=== PATIENT | female | born 1940 | race Caucasian/White ===

== ENCOUNTER 2019-07-03 05:56 | Inpatient (IN) | payer MEDICARE, SELFPAY ==
[2019-07-03] VITALS (8 sets, daily range): BP systolic 112–143; BP diastolic 56–96; PULSE 65–89; RESP 16–25; TEMP 35.9–37.8; O2SAT 96–99; BMI 22.4
--- NOTE | ~2019-07-03 | XR_ITS ---
EXAMINATION: XR abdomen NG/feed tube insert DATE: 07/03/2019 09:45 INDICATION: Small bowel obstruction. Nasogastric tube insertion. TECHNIQUE: A supine view of the abdomen and lower chest was obtained for evaluation of feeding tube placement. COMPARISON: CT dated 07/03/2019 FINDINGS: Nasogastric tube tip in proximal side port in the body of the stomach. Mild discoid atelectasis at th e left lung base. Heart size is normal. Renal excreted contrast at the bilateral renal collecting sys tems as well as partially visualized right lower quadrant ileal conduit. Gas-filled viscus structure in the central abdomen most likely in the distal stomach. No other dilated loops of gas-filled bowel in the visualized abdomen. IMPRESSION: 1. Nasogastric tube in the stomach. Reviewed, dictated and finalized at location A. L SKINNER
--- NOTE | ~2019-07-03 | XR_ITS ---
EXAMINATION: XR abdomen obstructive series DATE: 07/04/2019 05:48 INDICATION: Small bowel obstruction TECHNIQUE: Upright and supine views of the abdomen were obtained. COMPARISON: 07/03/2019 FINDINGS: The nasogastric tube is in the stomach. No definitely dilated loops of bowel are seen. Ther e is no free intraperitoneal gas. A moderate volume of colonic stool is noted. Surgical changes are n oted in the pelvis. IMPRESSION: 1. Nasogastric tube in the stomach. No definite dilated bowel loops. Reviewed, dictated and finalized at location A. TING HOUSEKEEPER
--- NOTE | ~2019-07-03 | CT_ITS ---
EXAMINATION: CT abdomen pelvis w con DATE: 07/03/2019 08:10 INDICATION: Lower abdominal pain TECHNIQUE: Computed tomography (CT) of the abdomen and pelvis was performed with 100 mL Omnipaque-350 intravenous contrast. Automated exposure control and iterative reconstruction technique were employe d. The dose-length product was 325.90 mGy-cm. COMPARISON: 07/19/2015 FINDINGS: Minimal atelectasis at the bilateral lung bases. Visual is inferior heart is normal. No pericardial o r pleural effusion. Focal hepatic steatosis at the ligamentum teres. Gallbladder, spleen, pancreas, b ilateral adrenal glands and right kidney are normal. A few subcentimeter left renal cyst. Normal appe ndix. Bladder is nonvisualized in the bilateral ureters appear to extend to an ileal conduit with rig ht lower quadrant ostomy. Unchanged parastomal hernia of a short segment of small bowel at an anastom osis which likely represents the loop harvest site. Multiple dilated loops of small bowel with pseudo feces sign at the transition point which is located in the deep anterior right hemipelvis near the re gion of the entrance of the right inguinal canal where there are several surgical clips as well as a suture line with similar postoperative change seen on the left likely related to prior pelvic lymph n ode dissections. There are a few shortness of relatively decompressed bowel between the transition po int and the short segment of herniated bowel. Small amount of stool scattered throughout the normal c olon. No free intraperitoneal gas or fluid. No pathologically enlarged abdominal or pelvic lymphadeno shobha. Severe facet osteoarthritis in lower lumbar spine. Mild disc height loss and grade 1 anterolis thesis L5 on S1. 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 IMPRESSION: 1. Small bowel obstruction with transition point in the deep anterior right pelvis near the entrance to the right inguinal canal with are postoperative changes likely related to prior cystectomy and pel kelli lymph node dissections. This suggests adhesions as an etiology. 2. Right lower quadrant ostomy with ileal conduit. Parastomal hernia of short segment of small bowel at the ileal conduit harvest site. Screws distal to the site of obstruction with decompression of the small bowel proximal and distal to the herniated segment. Reviewed, dictated and finalized at location A. IC SERVICE OFFICER IMPRESSION: 1. Small bowel obstruction with transition point in the deep anterior right pel vis near the entrance to the right inguinal canal with are postoperative change s likely related to prior cystectomy and pelvic lymph node dissections. This long ggests adhesions as an etiology. 2. Right lower quadrant ostomy with ileal conduit. Parastomal hernia of short s egment of small bowel at the ileal conduit harvest site. Screws distal to the s ite of obstruction with decompression of the small bowel proximal and distal to the herniated segment.
[2019-07-03 07:09] LABS: Basophils Absolute Auto 0.1 K/mm3 (0.0-0.1); Basophils Percent Auto 0.4 % (0.2-1.2); Eosinophils Percent Auto 0.3 % (0-4.4); Hematocrit 45.4 % (37.0-47.0); Hemoglobin 14.5 g/dL (12.0-15.0); Immature Granulocyte Absolute 0.03 K/mm3 (0.00-0.031); Immature Granulocyte Percent A 0.3 % (0-0.5); Lymphocytes Absolute Auto 0.25 K/mm3 (0.9-3.2); Lymphocytes Percent Auto 2.2 % (18.3-44.2); Mean Corpuscular HGB Conc 31.9 g/dl (32-36); Mean Corpuscular Hemoglobin 30.1 pg (26-34); Mean Corpuscular Volume 94.2 fl (80-100); Mean Platelet Volume 10.8 fl (7.4-10.4); Monocytes Absolute Auto 0.5 K/mm3 (0.1-0.6); Monocytes Percent Auto 4.4 % (2.6-8.5); Neutrophils Absolute Auto 10.6 K/mm3 (1.3-6.7); Neutrophils Percent Auto 92.4 % (45.5-73.1); Platelet Count Result 212 k/mm3 (150-375); Red Blood Count 4.82 M/mm3 (4.2-5.4); Red Cell Distribution Width 12.7 % (11.5-14.5); White Blood Count 11.4 K/mm3 (4.5-10.0)
[2019-07-03 07:09] LABS: Add Urine Microscopic? YES; Appearance Urine Cloudy (Clear); Bacteria Urine Trace /hpf; Bilirubin Urine Negative (Negative); Blood Urine 1+ (Negative); Color Urine Yellow (Yellow); Glucose Urine UA Negative (Negative); Ketones Urine 1+ mg/dL (Negative); Leukocyte Esterase Ur Negative LEU/UL (Negative); Mucus Urine Heavy /lpf; Nitrate Urine Negative (Negative); Protein Urine 2+ mg/dL (Negative); Specific Grav Ur 1.016 (1.001-1.035); Urobilinogen Urine Negative mg/dL (<2.0)
[2019-07-03 07:21] LABS: Alanine Aminotransferase 17 U/L (4-35); Albumin Level 4.4 g/dL (3.5-5.1); Alkaline Phosphatase 100 U/L (38-126); Aspartate Amino Transferase 25 U/L (14-36); Bilirubin,Total 0.5 mg/dL (0.2-1.3); Blood Urea Nitrogen 25 mg/dL (7-17); Calcium 9.6 mg/dL (8.4-10.2); Carbon Dioxide 28 mmol/L (22-30); Chloride 103 mmol/L (98-107); Estimated CRCL calculation 63 ml/min; Estimated Glomerular Filt Rate > 60; Glucose 147 mg/dL (65-105); Lipase 78 U/L (23-300); Potassium 4.3 mmol/L (3.4-5.0); Sodium 138 mmol/L (137-145)
--- NOTE | 2019-07-03 07:23 | ED.ABDPAIN ---
HPI - Abdominal Pain General Chief Complaint: Abdominal Pain Stated Complaint: abd pain n/v Time Seen by Provider: 07/03/19 06:33 History of Present Illness HPI narrative: Patient is a 78-year-old female who presents ER with vomiting and abdominal discomfort. 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 Normal output. She has history of adhesions since then that cause bowel obstructions. This feels similar. Began feeling unwell about a day ago and then has had many episodes of retching vomiting. No diarrhea. Denies fever/chills/sweats. Due to vomiting patient started to get dizzy when going from sitting to standing. No alleviating factors. Pain and nausea are improved at this time. Related Data Home Medications Medication Instructions Recorded Confirmed sertraline 50 mg tablet 50 mg PO DAILY 05/25/19 Allergies Allergy/AdvReac Type Severity Reaction Status Date / Time amoxicillin Allergy Unknown Nausea and Verified 07/03/19 06:16 Vomiting levofloxacin Allergy Unknown Nausea and Verified 07/03/19 06:16 Vomiting polymyxin B Allergy Unknown Nausea and Verified 07/03/19 06:16 Vomiting Sulfa (Sulfonamide Allergy Unknown Nausea and Verified 07/03/19 06:16 Antibiotics) Vomiting trimethoprim Allergy Unknown Nausea and Verified 07/03/19 06:16 Vomiting AMOXICILLIN TRIHYDRATE Allergy Unknown NAUSEA Uncoded 07/03/19 06:16 POLYMYXIN B SULFATE Allergy Unknown Unknown Uncoded 07/03/19 06:16 POTASSIUM CLAVULANATE AdvReac Unknown NAUSEA Uncoded 07/03/19 06:16 Review of Systems Review of Systems: All systems reviewed & are unremarkable except as noted in HPI and below Constitutional: Constitutional: Denies fever(s) and Denies weakness ENT: Denies vertigo and Denies sore throat Cardiovascular: Cardiovascular: Denies chest pain Respiratory: Respiratory: Denies dyspnea and Denies wheezing Gastrointestinal: Gastrointestinal: Reports abdominal pain, Reports bloating, Denies diarrhea, Reports nausea and Reports vomiting PMFSH Past Medical History Medical History Cardiomyopathy due to hypertension, without heart failure Chronic insomnia Cyclic vomiting syndrome Depression History of basal cell carcinoma History of small bowel obstruction HLD (hyperlipidemia) With statin intolerance. Hypertension Old [place] (myocardial infarction) Parastomal hernia without obstruction or gangrene Repaired once in the past in 2007. Primary squamous cell carcinoma of urethra Diagnosed in 1999, status post radical cystoscopy with ileal conduit, chemotherapy, and radiation. She is followed by Dr. Zan Alejandro at [facility]. CT of the abdomen and pelvis done at annual visit on 06/11/2019 showed no evidence of recurrence or metastatic disease. Transitional cell carcinoma of bladder Diagnosed in 1999, status post radical cystoscopy with ileal conduit, chemotherapy, and radiation. She is followed by Dr. Zan Alejandro at [facility]. CT of the abdomen and pelvis done at annual visit on 06/11/2019 showed no evidence of recurrence or metastatic disease. Surgical History Surgical History History of hernia repair Exploratory laparotomy with extensive adhesiolysis and peristomal hernia repair in October of 2007. History of ileal conduit For squamous cell carcinoma of the urethra and noted positive transitional cell carcinoma of the bladder. Node positive with lymph node dissection during surgery. History of partial thyroidectomy 1976, benign mass. History of total cystectomy For squamous cell carcinoma of the urethra and node positive transitional cell carcinoma of the bladder in 1999. Status post surgical removal of malignant neoplasm of skin Basal cell carcinoma. Family History Family History Father Family
[2019-07-03] MEDS: SODIUM CHLORIDE 0.9% IV 1,000 ML 999 ML IV CONT (07:44)
[2019-07-03] MEDS: MORPHINE SULFATE 4 MG/ML INJ IV PUSH (08:16)
[2019-07-03] MEDS: ONDANSETRON INJ 4 MG/2 ML VIAL IV PUSH (08:16)
--- NOTE | 2019-07-03 12:33 | ADMGEN ---
This patient, Roxanne Zuniga, was admitted to [facility] Surg Room 326-01. Patient/family oriented to hospital policies and general routines including ID bracelet, bed and alarms, visiting hours, pain management, procedures, bathroom and other care routines, personal items, smoking policy, room service/diet, and visiting hours. Valuables list has been completed. Information on how to activate the Rapid Response Team has been discussed. Patient/Family are encouraged to report perceived risks to care and to ask questions if they do not understand what they are told or what they should do.
[2019-07-03] MEDS: SODIUM CHLORIDE 0.9% IV 1,000 ML 125 ML IV CONT ×2 (12:51→19:05)
--- NOTE | 2019-07-03 13:18 | PM.CNGS ---
Assessment and Plan Assessment and plan (1) Partial small bowel obstruction: Code(s): K56.600 - Partial intestinal obstruction, unspecified as to cause Status: Acute Assessment and Plan: The patient presents with evidence of a small bowel obstruction on the CT scan that appears to have a transition point at the same area that has caused her issues in the past. This area is also where she has previously had abdominal radiation and cystectomy, and is most likely a result of intraabdominal adhesions. This is a more chronic problem for the patient and has resolved with conservative measures in the past. Hopefully, this will resolve with NG tube decompression and bowel rest. The patient already seems to be significantly improving. I discussed the CT imaging with the patient and treatment plan at this point. With her extensive surgical history along with previous abdominal radiation, we will continue with conservative management and allow some time for this to resolve. I will request her records from [place] where she has been treated for her previous bladder cancer. Continue at this time with NG tube decompression, IV fluids, bowel rest, analgesics, and antiemetics. We will continue to follow with serial imaging and serial abdominal exams. Thank you for allowing me to see the patient in consultation and we will continue to follow along with you. (2) Parastomal hernia without obstruction or gangrene: Code(s): K43.5 - Parastomal hernia without obstruction or gangrene Status: Acute Assessment and Plan: The CT suggests a segment of small bowel in the parastomal hernia, but it is unclear if this is a portion of the small bowel connected to the ileal conduit or not. Does not appear to be obstructed or the cause of her current small bowel obstruction. No surgical indication at this time. (3) History of bladder cancer: Code(s): Z85.51 - Personal history of malignant neoplasm of bladder Status: Acute (4) Dehydration: Code(s): E86.0 - Dehydration Status: Acute (5) Cardiomyopathy due to hypertension, without heart failure: Code(s): I11.9 - Hypertensive heart disease without heart failure; I43 - Cardiomyopathy in diseases classified elsewhere Status: Acute (6) Hypertension: Code(s): I10 - Essential (primary) hypertension Status: Acute (7) Cyclic vomiting syndrome: Code(s): R11.15 - Cyclical vomiting syndrome unrelated to migraine Status: Acute (8) Chronic insomnia: Code(s): F51.04 - Psychophysiologic insomnia Status: Acute (9) Depression: Code(s): F32.9 - Major depressive disorder, single episode, unspecified Status: Acute (10) HLD (hyperlipidemia): Code(s): E78.5 - Hyperlipidemia, unspecified Status: Acute Additional Plan I discussed the patient's case and plan of care with Dr. Cuellar. History of Present Illness Consult details Consult date: 07/03/19 Reason for consult: other (Small-bowel obstruction) Requesting physician: Ian Valadez MD Narrative: The patient is a 78-year-old female who presented to the emergency department with complaints of abdominal pain, nausea, and vomiting. The patient has an extensive surgical history including cystectomy with ileal conduit for bladder and urethral cancer in 1999 with subsequent chemotherapy and radiation. Since that surgery, the patient has had intermittent episodes of bowel obstructions in the past and interval development of a peristomal hernia. She has been hospitalized at [facility] on multiple occasions, but also conservatively manage is what she believes or bowel obstructions at home at times. She reports having symptoms of a bowel obstruction about 12 times per year. She had an episode of a bowel obstruction and was thought to have intermittent incarceration of small bowel in her peristomal hernia on admission in 2007. She subsequentl
--- NOTE | 2019-07-03 14:09 | ECG_ITS ---
Measurements Intervals [place] Rate: 64 P: 60 [place]: 144 QRS: -27 QRSD: 89 T: 49 QT: 427 QTc: 442 Interpretive Statements SINUS RHYTHM ATRIAL PREMATURE COMPLEX BORDERLINE ST-T WAVE ABNORMALITY- DIFFUSE LEADS BASELINE WANDER- I, III, V4-V6 BORDERLINE ECG Electronically Signed On 07-03-2019 15:49:01 SKEIN WASHER by Maurice Bello D.O.
--- NOTE | 2019-07-03 17:00 | PM.IMHP ---
H&P: HPI History of Present Illness Chief complaint: Abdominal pain, nausea, and vomiting. Narrative: Roxanne Zuniga is a 78 year old female with history of urethral and bladder cancer status post radical cystectomy with ileal conduit, peristomal hernia repair with extensive adhesiolysis, and history of recurrent partial small-bowel obstructions who presented to the emergency department earlier this morning from home for evaluation of abdominal pain, nausea, and vomiting. Since the aforementioned surgeries, she has had several bowel obstructions and partial obstructions, with the last being approximately 2 months ago. She was able to treat herself through that at home, with bowel rest, antiemetics, anxiolytics, and suppositories. Yesterday afternoon she just was not feeling well, and was feeling ?queasy.? Occasionally if she has something little to eat when feeling this way, she will feel better, however she felt worse after eating chili. Not long thereafter, she developed bloating and discomfort diffusely throughout the lower abdomen that she has a difficult time describing. She then began vomiting which has persisted throughout the night. This morning, she was profoundly weak and lightheaded on standing and thus she came in for evaluation. She had 2 formed bowel movements within the last 12 hours and she was surprised to learn that CT showed evidence of obstruction. An NG tube has since been placed, and she notes improvement in her pain and bloating. Review of Systems Review of Systems: Narrative: Twelve systems were reviewed with pertinent positives and negatives as per HPI. She reports cold sweats last evening with the development of abdominal pain. She has not had a fever. She had URI symptoms last week, but improved quickly, within a day or so. She has not had chest pain or shortness of breath. No hematemesis. She denies melena and hematochezia. No change in urostomy output. Except as documented, all other systems were reviewed and are negative. [facility] Past Medical History Medical History Cardiomyopathy due to hypertension, without heart failure Chronic insomnia Cyclic vomiting syndrome Depression History of basal cell carcinoma History of small bowel obstruction HLD (hyperlipidemia) With statin intolerance. Hypertension Old [place] (myocardial infarction) Parastomal hernia without obstruction or gangrene Repaired once in the past in 2007. Primary squamous cell carcinoma of urethra Diagnosed in 1999, status post radical cystoscopy with ileal conduit, chemotherapy, and radiation. She is followed by Dr. Zan Alejandro at [facility]. CT of the abdomen and pelvis done at annual visit on 06/11/2019 showed no evidence of recurrence or metastatic disease. Transitional cell carcinoma of bladder Diagnosed in 1999, status post radical cystoscopy with ileal conduit, chemotherapy, and radiation. She is followed by Dr. Zan Alejandro at [facility]. CT of the abdomen and pelvis done at annual visit on 06/11/2019 showed no evidence of recurrence or metastatic disease. Surgical History Surgical History History of hernia repair Exploratory laparotomy with extensive adhesiolysis and peristomal hernia repair in October of 2007. History of ileal conduit For squamous cell carcinoma of the urethra and noted positive transitional cell carcinoma of the bladder. Node positive with lymph node dissection during surgery. History of partial thyroidectomy 1976, benign mass. History of total cystectomy For squamous cell carcinoma of the urethra and node positive transitional cell carcinoma of the bladder in 1999. Status post surgical removal of malignant neoplasm of skin Basal cell carcinoma. Family History Family History Father Family history of diabetes mellitus in first d
[2019-07-03] MEDS: BENZOCAINE/MENTHOL (*BKC) 18 EA LOZENGE 1 LOZENGE PO (17:03)
[2019-07-03] MEDS: LORAZEPAM INJ 2 MG/ML VIAL 0.25 MG IV PUSH (22:03)
[2019-07-04] MEDS: SODIUM CHLORIDE 0.9% IV 1,000 ML 125 ML IV CONT (03:41)
[2019-07-04 06:00] VITALS: BP 148/63; PULSE 78; RESP 16; TEMP 38.1; O2SAT 95
[2019-07-04 06:22] LABS: Hematocrit 37.4 % (37.0-47.0); Mean Corpuscular HGB Conc 32.1 g/dl (32-36); Mean Corpuscular Hemoglobin 30.5 pg (26-34); Mean Corpuscular Volume 94.9 fl (80-100); Mean Platelet Volume 10.7 fl (7.4-10.4); Platelet Count Result 162 k/mm3 (150-375); Red Blood Count 3.94 M/mm3 (4.2-5.4); Red Cell Distribution Width 12.8 % (11.5-14.5); White Blood Count 3.4 K/mm3 (4.5-10.0)
[2019-07-04 06:55] LABS: Blood Urea Nitrogen 19 mg/dL (7-17); Calcium 8.2 mg/dL (8.4-10.2); Carbon Dioxide 25 mmol/L (22-30); Chloride 112 mmol/L (98-107); Estimated CRCL calculation 75 ml/min; Estimated Glomerular Filt Rate > 60; Glucose 94 mg/dL (65-105); Potassium 3.7 mmol/L (3.4-5.0); Sodium 143 mmol/L (137-145)
[2019-07-04 07:04] VITALS: TEMP 37
[2019-07-04] MEDS: LACTATED RINGERS 1,000 ML 100 ML IV CONT ×2 (11:30→21:49)
[2019-07-04 14:00] VITALS: BP 154/69; PULSE 72; RESP 16; TEMP 36.7; O2SAT 97
[2019-07-04] MEDS: MAGNESIUM HYDROXIDE SUSP 30 ML UDC FEED TUBE (15:57)
--- NOTE | 2019-07-04 16:50 | PM.PNGS ---
Progress Note: A&P Assessment and Plan (1) SBO (small bowel obstruction): Code(s): K56.609 - Unspecified intestinal obstruction, unspecified as to partial versus complete obstruction Status: Acute Assessment and Plan: Appears to be resolving, NG removed, increase diet. Possibly home tomorrow if okay with Medicine service and patient doing well. (2) Parastomal hernia without obstruction or gangrene: Onset Date: Unknown Code(s): K43.5 - Parastomal hernia without obstruction or gangrene Status: Acute Assessment and Plan: This was not the site of the obstruction. (3) Partial small bowel obstruction: Onset Date: ~07/02/19 Code(s): K56.600 - Partial intestinal obstruction, unspecified as to cause Status: Acute (4) History of bladder cancer: Onset Date: 2007 Code(s): Z85.51 - Personal history of malignant neoplasm of bladder Status: Acute Assessment and Plan: Patient has had 1 surgery for a peristomal hernia since having her bladder resection and formation of ileal conduit. Subjective Subjective Date/Time Seen: 07/04/19 16:50 Post Op day: Post hospital day 1. Patient reports: no new complaints, feels better, flatus and bowel movement (1 solid 1 followed by several loose ones.) Interval history: Between breakfast and now the patient has had several bowel movements. Recently the nurse clamped her NG tube in gave her 1 dose of milk a magnesia. She has been tolerating ice chips and a little bit of sips of liquids when the NG is clamped. She has been getting up walking in the room. Review of Systems Constitutional: Constitutional: Reports no additional constitutional complaints ENT: Reports other (Mucous Membranes moist.) Cardiovascular: Cardiovascular: Denies dyspnea Respiratory: Respiratory: Denies pain on inspiration and Denies dyspnea Musculoskeletal: Musculoskeletal: Reports other (No calf swelling or edema) Integumentary/Breasts: Skin/Breast: Reports system reviewed and no additional complaints, except as docu Exam Narrative: Exam Narrative: HEENT mucous membranes moist NG in left nostril Lungs: Clear Abdomen: Rounded but not bloated, good bowel sounds present. Ostomy in the right lower quadrant is pink. To palpation abdomen is nontender. Extremities: No significant edema Objective Data Vital Signs Vital Signs: Vital Signs - 24 hr 07/03/19 22:00 07/04/19 06:00 07/04/19 07:04 Temperature 37.1 C 38.1 C H 37.0 C Pulse Rate 77 78 Respiratory Rate 18 16 Blood Pressure 124/56 L 148/63 H Pulse Oximetry 96 95 Intake/Output Intake/Output: Intake & Output 07/01/19 07/02/19 07/03/19 07/04/19 23:59 23:59 23:59 23:59 Intake Total 1800 2100 Output Total 300 600 Balance 1500 1500 Meds/Results Medications: Active Medications Generic Name Dose Route Start Last Admin Trade Name Freq PRN Reason Stop Dose Admin Benzocaine 1 lozenge 07/03/19 15:25 07/03/19 17:03 Chloraseptic Lozenge PO 1 lozenge PRN PRN Administration Sore Throat Lactated Ringer's 1,000 mls @ 100 mls/hr 07/04/19 08:45 07/04/19 11:30 Lr - Lactated Ringers Iv IV CONT 100 mls/hr .Q10H JOHNATHAN Administration Morphine Sulfate 4 mg 07/03/19 11:27 Morphine Sulfate Inj IV PUSH Q2H PRN Pain Rated 7-10 Ondansetron HCl 4 mg 07/03/19 14:06 Zofran Inj IV PUSH Q6H PRN Nausea And Vomiting Radiology Results: ITS Impressions Abdomen/Pelvis CT 07/03/19 08:12 IMPRESSION: 1. Small bowel obstruction with transition point in the deep anterior right pelvis near the entrance to the right inguinal canal with are postoperative changes likely related to prior cystectomy and pelvic lymph node dissections. This suggests adhesions as an etiology. 2. Right lower quadrant ostomy with ileal conduit. Parastomal hernia of short segment of small bowel at the ileal conduit harvest site. Screws distal to the
--- NOTE | 2019-07-04 16:51 | PM.IMPN ---
Progress Note: A&P Assessment and Plan (1) SBO (small bowel obstruction): Code(s): K56.609 - Unspecified intestinal obstruction, unspecified as to partial versus complete obstruction Status: Acute Assessment and Plan: -----patient's nausea vomiting has improved and she has been having multiple bowel movements. At this time the plan is to give 1 dose of milk a magnesia and clamp the NG tube. The patient had good bowel sounds and no pain to her abdomen. Will advance the diet as tolerated and I appreciate surgeries additional input. The patient had a fever today but does not seem to have any infection. UA does have 10-15 white blood cells but no nitrates or leukocyte esterase so no need for treatment at this time. Will follow urine culture until resulted. (2) Dehydration: Code(s): E86.0 - Dehydration Status: Acute Assessment and Plan: -----continue IV fluids. Patient's BUN is within normal limits today. (3) Hypertension: Code(s): I10 - Essential (primary) hypertension Status: Acute Assessment and Plan: -----blood pressure 148/63. I do not see any medications for hypertension. I will talk to the patient about that tomorrow. She may have elevated blood pressure due to bowel obstruction and may just need to follow up with her primary care physician. Will start all of her oral medications, such as her sertraline, when she tolerates a diet. Time Spent With Patient Time with patient: 25 - 35 minutes Subjective Interval history: Pt is a 78 y/o female here for small bowel obstruction. Patient states she feels great and she has had a few bowel movements. She has not had any nausea or vomiting. She says she has had over 100 small-bowel obstructions and she usually recovers very quickly. She said she did not feel bad with the fever this morning. Pt denies chills, constipation, diarrhea, chest pain, sob, or abdominal pain. Review of Systems Review of Systems: All systems reviewed & are unremarkable except as noted in HPI and below Exam Narrative: Exam Narrative: General: Well developed well nourished patient resting comfortably in bed in NAD HEENT: normocephalic. NG tube intact Neck: supple Neuro: Alert and oriented x 4 CV:RRR Resp:CTA Abd: Soft, non distended. No pain to palpation. Positive bowel sounds. Iileal conduit intact with urine in the bag Extremities: No swelling, erythema, or pain to palpation. Objective Data Vital Signs Vital Signs: Vital Signs - 24 hr 07/03/19 22:00 07/04/19 06:00 07/04/19 07:04 Temperature 98.7 F 100.6 F H 98.6 F Pulse Rate 77 78 Respiratory Rate 18 16 Blood Pressure 124/56 L 148/63 H Pulse Oximetry 96 95 Intake/Output Intake/Output: Intake & Output 07/01/19 07/02/19 07/03/19 07/04/19 23:59 23:59 23:59 23:59 Intake Total 1800 2100 Output Total 300 600 Balance 1500 1500 Meds/Results Medications: Active Medications Generic Name Dose Route Start Last Admin Trade Name Freq PRN Reason Stop Dose Admin Benzocaine 1 lozenge 07/03/19 15:25 07/03/19 17:03 Chloraseptic Lozenge PO 1 lozenge PRN PRN Administration Sore Throat Lactated Ringer's 1,000 mls @ 100 mls/hr 07/04/19 08:45 07/04/19 11:30 Lr - Lactated Ringers Iv IV CONT 100 mls/hr .Q10H JOHNATHAN Administration Morphine Sulfate 4 mg 07/03/19 11:27 Morphine Sulfate Inj IV PUSH Q2H PRN Pain Rated 7-10 Ondansetron HCl 4 mg 07/03/19 14:06 Zofran Inj IV PUSH Q6H PRN Nausea And Vomiting Radiology Results: ITS Impressions Abdomen/Pelvis CT 07/03/19 08:12 IMPRESSION: 1. Small bowel obstruction with transition point in the deep anterior right pelvis near the entrance to the right inguinal canal with are postoperative changes likely related to prior cystectomy and pelvic lymph node dissections. This suggests adhesions as an etiology. 2. Right lower quadrant ostomy with ileal conduit. Para
[2019-07-04 20:12] VITALS: PULSE 67; RESP 16; O2SAT 97
[2019-07-04 22:00] VITALS: BP 152/69; PULSE 67; RESP 16; TEMP 36.8; O2SAT 97
--- NOTE | 2019-07-05 03:41 | PC.NURSE ---
paient IV as leaking and patient refused another IV stating that she was going home tomorrow.
[2019-07-05 06:00] VITALS: BP 144/69; PULSE 79; RESP 16; TEMP 36.9; O2SAT 97
[2019-07-05 06:19] LABS: Hemoglobin 11.9 g/dL (12.0-15.0); Mean Corpuscular HGB Conc 32.2 g/dl (32-36); Mean Corpuscular Hemoglobin 30.4 pg (26-34); Mean Corpuscular Volume 94.4 fl (80-100); Mean Platelet Volume 10.8 fl (7.4-10.4); Platelet Count Result 147 k/mm3 (150-375); Red Blood Count 3.92 M/mm3 (4.2-5.4); Red Cell Distribution Width 12.4 % (11.5-14.5); White Blood Count 4.3 K/mm3 (4.5-10.0)
[2019-07-05 06:44] LABS: Blood Urea Nitrogen 13 mg/dL (7-17); Calcium 8.3 mg/dL (8.4-10.2); Carbon Dioxide 23 mmol/L (22-30); Chloride 108 mmol/L (98-107); Estimated CRCL calculation 91 ml/min; Estimated Glomerular Filt Rate > 60; Glucose 67 mg/dL (65-105); Potassium 3.5 mmol/L (3.4-5.0); Sodium 139 mmol/L (137-145)
[2019-07-05 08:00] VITALS: PULSE 79; RESP 16; O2SAT 97
--- NOTE | 2019-07-05 09:18 | PM.DS ---
DS: Diagnosis Admitting Diagnosis Admitting Diagnosis: Partial intestinal obstruction, unspecified as to cause Discharge Diagnosis (1) SBO (small bowel obstruction): Code(s): K56.609 - Unspecified intestinal obstruction, unspecified as to partial versus complete obstruction Status: Acute (2) Dehydration: Code(s): E86.0 - Dehydration Status: Acute (3) Hypertension: Code(s): I10 - Essential (primary) hypertension Status: Acute DS: Summary Hospital Course Reason for hospitalization: SBO Hospital Course: 78-year-old female with the past medical history of multiple small bowel obstructions presented emergency room for abdominal pain and inability to keep solids or fluids down. Vitals show temperature 96.7?, pulse 68, respiratory rate 25, blood pressure 143/72, pulse ox 99. White blood cell count 11.4, hemoglobin 14.5, hematocrit 45.4, platelets 212. BMP within normal limits with the exception of BUN high 25. AST and ALT within normal limits. Lipase normal. UA showed a few red blood cells and few white blood cells but the urine culture was finalized negative. In the ER showed small-bowel obstruction. Patient was admitted to the hospitalist service and conservative measures were implemented. The patient improved with the NG tube and this was able to be discontinued. The patient slowly increased her diet and did well. She did have a few readings of high blood pressures throughout her stay but she says she sees her primary care physician for this and it was likely due to pain and stress of the NG tube. The day of discharge the patient was able to tolerate a regular diet and walk the halls. She was educated about the worrisome signs and symptoms to come back to emergency room for and was discharged in stable condition. Status at Discharge Functional status at discharge: independent ambulation Overall status at discharge: patient is back to baseline Time Spent with Patient Time attestation: Total time spent providing and/or coordinating discharge services:36 min Exam Narrative: Exam Narrative: General: Well developed well nourished patient resting comfortably in bed in NAD HEENT: normocephalic. Neck: supple Neuro: Alert and oriented x 4 CV:RRR Resp:CTA Abd: Soft, non distended. No pain to palpation. Positive bowel sounds. Iileal conduit intact with urine in the bag Extremities: No swelling, erythema, or pain to palpation. DS: Data Data Completed and Pending Labs on day of discharge: Labs from last 24 hours 07/05/19 07/05/19 06:00 06:00 WBC 4.3 L RBC 3.92 L Hgb 11.9 L Hct 37.0 MCV 94.4 MCH 30.4 MCHC 32.2 RDW 12.4 Plt Count 147 L MPV 10.8 H Sodium 139 Potassium 3.5 Chloride 108 H Carbon Dioxide 23 BUN 13 D Creatinine 0.40 L Estim Creat Clear Calc 91 Estimated GFR > 60 Glucose 67 Calcium 8.3 L Discharge Plan Discharge Attending physician on discharge: Edmund Fish Consulting providers: Kit Cuellar ; Billie Fitzgerald ; Laura Norman ; Kayla Gannon ; Basil Plummer ; Maurice Bello ; Bonifacio eBnder Discharging Clinician: Kayla Gannon Anticipated Discharge Date/Time: 07/05/19 11:00 Patient Disposition: Home, Self-Care Activity: as tolerated Diet: as tolerated and regular Discharge Instructions: General Medicine Discharge Instructions: -continue to advance your diet as tolerated -follow up with your primary care physician in 1-2 weeks about this stay. Talk to them about your blood pressure to see if you need blood pressure medication outside of the hospital setting -worrisome signs and symptoms come back to emergency room for: Increasing abdominal pain, worsening nausea vomiting, shortness of breath, chest pain, progressive significant weakness, or any other worrisome symptom Patient Instructions: Antibiotic Form Stand Alone Forms: General Discharge Information Follow-up/R
--- NOTE | 2019-07-05 13:23 | PM.PNGS ---
Progress Note: A&P Assessment and Plan (1) SBO (small bowel obstruction): Code(s): K56.609 - Unspecified intestinal obstruction, unspecified as to partial versus complete obstruction Status: Acute Assessment and Plan: Appears to be resolving, NG removed yesteterday, increase diet. Home today if okay with Medicine service and patient doing well. (2) Parastomal hernia without obstruction or gangrene: Onset Date: Unknown Code(s): K43.5 - Parastomal hernia without obstruction or gangrene Status: Acute Assessment and Plan: This was not the site of the obstruction. (3) Partial small bowel obstruction: Onset Date: ~07/02/19 Code(s): K56.600 - Partial intestinal obstruction, unspecified as to cause Status: Acute (4) History of bladder cancer: Onset Date: 2007 Code(s): Z85.51 - Personal history of malignant neoplasm of bladder Status: Acute Assessment and Plan: Patient has had 1 surgery for a peristomal hernia since having her bladder resection and formation of ileal conduit. Additional Plan I discussed the plan for home going. Patient requested a CD disc which would have the images of her admission CT scan of the abdomen and pelvis on it to take with her. She will review this with her GI doctor at [place]. Subjective Subjective Date/Time Seen: 07/05/19 13:23 Review of Systems Constitutional: Constitutional: Reports as per HPI, Reports no additional constitutional complaints, Denies chills, Denies excessive sweating, Denies fever(s) and Denies headache(s) Exam Narrative: Exam Narrative: HEENT mucous membranes moist NG in left nostril Lungs: Clear Abdomen: Rounded but not bloated, good bowel sounds present. Ostomy in the right lower quadrant is pink. To palpation abdomen is nontender. Extremities: No significant edema Const: General: no acute distress and well developed Nutritional Appearance: well nourished Orientation/consciousness: oriented x3 Resp: Effort & Inspection: normal respiratory effort, able to speak in complete sentences and no respiratory distress Auscultation: clear to auscultation bilaterally GI: GI Palp: Yes soft, No tender and No guarding Auscultation: normal bowel sounds Skin: General skin exam: normal color and no rashes or lesions noted Objective Data Vital Signs Vital Signs: Vital Signs - 24 hr 07/04/19 14:00 07/04/19 20:12 07/04/19 22:00 Temperature 36.7 C 36.8 C Pulse Rate 72 67 67 Respiratory Rate 16 16 16 Blood Pressure 154/69 H 152/69 H Pulse Oximetry 97 97 97 07/05/19 06:00 07/05/19 08:00 Temperature 36.9 C Pulse Rate 79 79 Respiratory Rate 16 16 Blood Pressure 144/69 H Pulse Oximetry 97 97 Intake/Output Intake/Output: Intake & Output 07/02/19 07/03/19 07/04/19 07/05/19 23:59 23:59 23:59 23:59 Intake Total 1800 3580 1390 Output Total 300 1200 1350 Balance 1500 2380 40 Meds/Results Medications: Active Medications Generic Name Dose Route Start Last Admin Trade Name Freq PRN Reason Stop Dose Admin Benzocaine 1 lozenge 07/03/19 15:25 07/03/19 17:03 Chloraseptic Lozenge PO 1 lozenge PRN PRN Administration Sore Throat Lactated Ringer's 1,000 mls @ 100 mls/hr 07/04/19 08:45 07/05/19 03:40 Lr - Lactated Ringers Iv IV CONT Infused .Q10H JOHNATHAN Infusion Morphine Sulfate 4 mg 07/03/19 11:27 Morphine Sulfate Inj IV PUSH Q2H PRN Pain Rated 7-10 Ondansetron HCl 4 mg 07/03/19 14:06 Zofran Inj IV PUSH Q6H PRN Nausea And Vomiting Radiology Results: ITS Impressions Abdomen/Pelvis CT 07/03/19 08:12 IMPRESSION: 1. Small bowel obstruction with transition point in the deep anterior right pelvis near the entrance to the right inguinal canal with are postoperative changes likely related to prior cystectomy and pelvic lymph node dissections. This suggests adhesions as an etiology. 2. Right lower quadrant ostomy
--- NOTE | 2019-07-05 14:26 | PC.NURSE ---
[facility] NOTIFIED OF DISCHARGE CALLED [phone]
== END 2019-07-05 13:55 | disposition home or self-care (01) | DRG 389 ==
LOC: ANHED 11:29 → ANH3MEDSUR 11:37
PROVIDERS: Physician Assistant; Admitting Provider Family Medicine; Emergency Provider Emergency Medicine; PCP Family Medicine; Visit Provider Internal Medicine
DX: K56.51 Intestinal adhesions [bands], with partial obstruction (principal); I43 Cardiomyopathy in diseases classified elsewhere; E86.0 Dehydration; I10 Essential (primary) hypertension; K43.5 Parastomal hernia without obstruction or gangrene; F32.9 Major depressive disorder, single episode, unspecified; Z85.51 Personal history of malignant neoplasm of bladder; Z87.891 Personal history of nicotine dependence; Z85.828 Personal history of other malignant neoplasm of skin; I25.2 Old myocardial infarction
CPT/HCPCS: 36415; 74019; 74177; 80048; 80053; 81001; 81025; 83690; 85025; 85027; 87086; 87088; 93005; 96361; 96374; 96375; 99285; A9270; J0131; J2060; J2270; J2405; J7030; J7120; Q9967

== ENCOUNTER 2019-08-27 12:12 | Outpatient (CLI) | payer MEDICARE, SELFPAY ==
--- NOTE | ~2019-08-27 | XR_ITS ---
XR elbow RT min 3V DATE: 08/27/2019 12:52 INDICATION: Fall on July 25. Right elbow pain. TECHNIQUE: 4 views COMPARISON: None FINDINGS: No fracture or dislocation or joint effusion. No periosteal reaction or bone destruction. IMPRESSION: No fracture or dislocation or joint effusion Reviewed, dictated and finalized at location B. 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
== END 2019-08-27 12:13 | disposition home or self-care (01) ==
LOC: ANHIMG 12:21
PROVIDERS: PCP Family Medicine; Visit Provider Physician Assistant
DX: M25.521 Pain in right elbow (principal)
CPT/HCPCS: 73080

== ENCOUNTER 2020-02-01 17:12 | Emergency (ER) | payer MEDICARE, SELFPAY ==
--- NOTE | ~2020-02-01 | XR_ITS ---
EXAMINATION: XR shoulder RT min 2V DATE: 02/01/2020 18:45 INDICATION: Right shoulder injury and pain TECHNIQUE: 4 views of right shoulder were obtained. COMPARISON: None. FINDINGS: Bone alignment is normal. No fracture. There is mild osteoarthritis of glenohumeral joint a nd acromioclavicular joint. IMPRESSION: 1. Mild polyarticular osteoarthritis. Reviewed, dictated and finalized at location A.
--- NOTE | ~2020-02-01 | XR_ITS ---
EXAMINATION: XR knee RT 3V DATE: 02/01/2020 18:45 INDICATION: Right knee pain. TECHNIQUE: 3 views of right knee were obtained. COMPARISON: Right knee radiographs 07/23/2008 FINDINGS: Bone alignment is normal. No fracture. There is mild tricompartmental osteoarthritis. No kn ee joint effusion. IMPRESSION: 1. Mild right knee osteoarthritis. Reviewed, dictated and finalized at location A.
--- NOTE | ~2020-02-01 | CT_ITS ---
EXAMINATION: CT brain wo con DATE: 02/01/2020 18:16 INDICATION: Fall. Head injury. TECHNIQUE: Computed tomography (CT) of the head was performed without intravenous contrast. The mA wa s adjusted according to patient size. Iterative reconstruction technique was employed. Exam dose: 60 5.33 mGy-cm total exam DLP. COMPARISON: 12/02/2012 CT brain FINDINGS: No intracranial mass lesion or hemorrhage or cerebrovascular accident. No midline shift or mass effect. Normal ventricular size. No subdural or epidural hematoma. Bilateral vertebral artery and carotid siphon internal carotid artery calcifications. The included paranasal sinuses and mastoid air cells are normally developed and aerated. Bilateral hyperostosis frontalis interna. No skull fracture or bone destruction. IMPRESSION: Cerebral atherosclerosis No significant intracranial abnormality or significant change since 12/02/2012 Reviewed, dictated and finalized at Location A. Reviewed, dictated and finalized at location A.
--- NOTE | ~2020-02-01 | CT_ITS ---
EXAMINATION: CT facial & cervical spine wo DATE: 02/01/2020 18:16 INDICATION: Head injury. TECHNIQUE: Computed tomography (CT) of the maxillofacial region and cervical spine was performed with out intravenous contrast. Automated exposure control and iterative reconstruction technique were empl oyed. The dose-length product was 162.91 mGy-cm. COMPARISON: Head CT 12/02/2012 FINDINGS: MAXILLOFACIAL CT: There is mild mucosal thickening in the ethmoid sinuses. There are fractures of the right nasal bone and right nasal process of maxilla. There is soft tissue swelling of the nose with soft tissue gas. CERVICAL SPINE CT: There is mild scarring at the lung apices. There is a 1.2 cm nodule in left thyroid lobe, likely not clinically significant. There is 3 degrees dextrocurvature of cervical spine. There is kyphosis of ce rvical spine. Vertebral body heights are normal. There is mildly decreased disc height at C4-C5 and s everely decreased disc height at C5-C6. The following disc levels are specifically discussed: C2-C3: There is no uncovertebral joint osteoarthritis. There is mild right facet joint osteoarthritis . There is no neural foraminal stenosis. There is no central canal stenosis. C3-C4: There is mild bilateral uncovertebral joint osteoarthritis. There is mild bilateral facet join t osteoarthritis. There is no neural foraminal stenosis. There is no central canal stenosis. C4-C5: There is mild bilateral uncovertebral joint osteoarthritis. There is mild right and severe lef t facet joint osteoarthritis. There is mild left neural foraminal stenosis. There is mild central can al stenosis. C5-C6: There is severe bilateral uncovertebral joint osteoarthritis. There is mild bilateral facet kindra int osteoarthritis. There is mild bilateral neural foraminal stenosis. There is mild central canal st enosis. C6-C7: There is mild bilateral uncovertebral joint osteoarthritis. There is mild bilateral facet join t osteoarthritis. There is mild left neural foraminal stenosis. There is no central canal stenosis. C7-T1: There is no uncovertebral joint osteoarthritis. There is moderate bilateral facet joint osteoa rthritis. There is no neural foraminal stenosis. There is no central canal stenosis. IMPRESSION: 1. Fractures of the right nasal bone and right nasal process of maxilla. 2. Severe cervical spondylosis. Reviewed, dictated and finalized at location A.
[2020-02-01 17:34] VITALS: BP 157/84; PULSE 74; RESP 18; TEMP 37.1; O2SAT 95
--- NOTE | 2020-02-01 19:49 | ED.FALL ---
HPI - Fall General Chief Complaint: Fall Stated Complaint: facial trauma Time Seen by Provider: 02/01/20 17:59 Source: patient Mode of arrival: ambulatory Limitations: no limitations History of Present Illness HPI Narrative: This is a 79 year old female that presents to the ER for fall today with head injury. Reports she was walking in her garden and tripped and fell. Reports falling forward and hitting her face on the ground. Denies loss of consciousness. Reports nasal pain, right shoulder and right knee pain. Related Data Home Medications Medication Instructions Recorded Confirmed sertraline 50 mg tablet 75 mg PO DAILY tablet 11/23/19 Allergies Allergy/AdvReac Type Severity Reaction Status Date / Time amoxicillin AdvReac Unknown Nausea and Verified 02/01/20 17:49 Vomiting levofloxacin AdvReac Unknown Nausea and Verified 02/01/20 17:49 Vomiting polymyxin B AdvReac Unknown Nausea and Verified 02/01/20 17:49 Vomiting Sulfa (Sulfonamide AdvReac Unknown Nausea and Verified 02/01/20 17:49 Antibiotics) Vomiting trimethoprim AdvReac Unknown Nausea and Verified 02/01/20 17:49 Vomiting Review of Systems Review of Systems: Narrative: CONSTITUTIONAL: Denies fever ENT: Reports nasal pain. Denies vision changes CARDIOVASCULAR: Denies chest pain RESPIRATORY: Denies dyspnea. GASTROINTESTINAL: Denies vomiting MUSCULOSKELETAL: Reports joint pain, and myalgia. NEUROLOGIC: Denies headache, numbness, or weakness. All systems reviewed & are unremarkable except as noted in HPI and below PMFSH Past Medical History Medical History (Updated 02/01/20 @ 20:23 by Roz Vásquez PA-C) Anxiety Cardiomyopathy due to hypertension, without heart failure Chronic insomnia Cyclic vomiting syndrome Depression Dizziness History of basal cell carcinoma History of small bowel obstruction HLD (hyperlipidemia) With statin intolerance. Hypertension Old MD (myocardial infarction) Parastomal hernia without obstruction or gangrene (Unknown) Repaired once in the past in 2007. Primary squamous cell carcinoma of urethra Diagnosed in 1999, status post radical cystoscopy with ileal conduit, chemotherapy, and radiation. She is followed by Dr. Zan Alejandro at [facility]. CT of the abdomen and pelvis done at annual visit on 06/11/2019 showed no evidence of recurrence or metastatic disease. Transitional cell carcinoma of bladder Diagnosed in 1999, status post radical cystoscopy with ileal conduit, chemotherapy, and radiation. She is followed by Dr. Zan Alejandro at [facility]. CT of the abdomen and pelvis done at annual visit on 06/11/2019 showed no evidence of recurrence or metastatic disease. Surgical History Surgical History (Updated 08/05/19 @ 10:25 by Maryjane Leonard PA-C) H/O exploratory laparotomy Approximately 2007 with adhesiolysis and shona stomal hernia repair History of hernia repair Exploratory laparotomy with extensive adhesiolysis and peristomal hernia repair in October of 2007. History of ileal conduit For squamous cell carcinoma of the urethra and noted positive transitional cell carcinoma of the bladder. Node positive with lymph node dissection during surgery. History of partial thyroidectomy 1976, benign mass. History of total cystectomy For squamous cell carcinoma of the urethra and node positive transitional cell carcinoma of the bladder in 1999. Status post surgical removal of malignant neoplasm of skin Basal cell carcinoma. Social History Social History (Updated 07/26/19 @ 14:54 by Leela Love NP) Social History: The patient lives in [place], [place]. She designates her as her surrogate decision maker and she wishes to be a full code. She is a former smoker and quit in 1998 or 1999. Recovering alcoholic, she has abstained since the . No drug abuse. Her primary care provider is Dr. Clarence Whitley. Smoking status: Former smoker Tobacco type: cigarettes S
[2020-02-01] MEDS: ACETAMINOPHEN 500 MG TABLET 1000 MG PO (19:59)
[2020-02-01] MEDS: TETANUS,DIPHTHERIA,AC PERTUSSIS ADULT (0.5 ML) BOOSTRIX IM (19:59)
[2020-02-01 20:36] VITALS: BP 154/79; PULSE 61; RESP 16; TEMP 36.4; O2SAT 96
== END 2020-02-01 20:37 | disposition home or self-care (01) ==
PROVIDERS: Emergency Provider Emergency Medicine; PCP Family Medicine
DX: S01.21XA Laceration without foreign body of nose, initial encounter (principal); Z23 Encounter for immunization; F41.9 Anxiety disorder, unspecified; F32.9 Major depressive disorder, single episode, unspecified; I11.9 Hypertensive heart disease without heart failure; I43 Cardiomyopathy in diseases classified elsewhere; Z85.828 Personal history of other malignant neoplasm of skin; I25.2 Old myocardial infarction; Z85.51 Personal history of malignant neoplasm of bladder; Z85.59 Personal history of malignant neoplasm of other urinary tract organ; W01.0XXA Fall on same level from slipping, tripping and stumbling without subsequent striking against object, initial encounter
CPT/HCPCS: 12001; 12011; 70450; 70486; 72125; 73030; 73562; 90471; 90715; 99284; A9270

== ENCOUNTER 2020-05-05 12:51 | Outpatient (CLI) | payer MEDICARE, SELFPAY ==
--- NOTE | ~2020-05-05 | MR_ITS ---
EXAMINATION: MR knee RT wo con DATE: 05/05/2020 13:42 INDICATION: Right knee pain TECHNIQUE: Magnetic resonance imaging (MRI) of the right knee was performed without intravenous contr ast. Sequences included coronal PD-weighted FSE, coronal PD-weighted FS FSE, sagittal T2-weighted FS E, sagittal PD-weighted FS FSE and axial PD weighted fat saturated FSE. COMPARISON: None. FINDINGS: Medial compartment: Complex tear at the medial meniscal body with longitudinal oblique tear plane extending to the inferi or articular surface at the posterior horn. Partial-thickness cartilage loss with smooth chondral kenn face at the medial tibial plateau and anterior to central weightbearing medial femoral condyle. Deepe r chondral fissuring with tiny central subchondral osteophyte and mild subarticular edema at the post erior weightbearing medial femoral condyle. Lateral compartment: Partial-thickness cartilage loss along the central to posterior weightbearing lateral femoral condyle with smooth appearing chondral surface. There are however tiny central osteophytes along the lateral side of the central weightbearing lateral femoral condyle suggesting overlying high-grade chondromal acia. Patellofemoral compartment: Deep chondral ulceration and fissuring at the patellar apical ridge where there is minimal cortical i rregularity and along the immediately adjacent medial and lateral patellar facets without degenerativ e subchondral changes. Trochlear cartilage is normal. Ligaments and tendons: Anterior and posterior cruciate ligaments are normal. The medial collateral ligament and fibular elliot ateral ligament complex are normal. Mild tendinopathy/enthesopathy with moderate sized enthesophytes at the distal quadriceps tendon. Patellar tendon is normal. The visualized medial and lateral hamstri ng tendons as well as the iliotibial band are normal. Fluid: Physiologic amount of fluid in the joint space. No loose osteochondral bodies identified. Prepatellar edema without discrete bursal fluid collection. Osseous/other: Bone alignment is normal. No fracture or pathologic marrow replacing process. Prominent subcutaneous varicosities at the posterolateral aspect of the knee. IMPRESSION: 1. Medial meniscal tear. 2. Mild tricompartmental osteoarthritis with small regions of moderate to high-grade chondromalacia i n all 3 compartments. 3. Mild distal quadriceps enthesopathy. Reviewed, dictated and finalized at location B. IMPRESSION: 1. Medial meniscal tear. 2. Mild tricompartmental osteoarthritis with small regions of moderate to high- grade chondromalacia in all 3 compartments. 3. Mild distal quadriceps enthesopathy.
== END 2020-05-05 12:52 | disposition home or self-care (01) ==
LOC: ANHIMG 12:58
PROVIDERS: PCP Family Medicine; Visit Provider Chiropractor Rehabilitation
DX: M17.11 Unilateral primary osteoarthritis, right knee (principal)
CPT/HCPCS: 73721

== ENCOUNTER 2020-05-18 10:40 | Outpatient (CLI) | payer MEDICARE, SELFPAY ==
[2020-05-18 11:19] LABS: Add Urine Microscopic? YES; Amorphous Sediment Urine Moderate; Appearance Urine Turbid (Clear); Bacteria Urine 1+ /hpf; Bilirubin Urine Negative (Negative); Blood Urine 1+ (Negative); Color Urine Amber (Yellow); Glucose Urine UA Negative (Negative); Ketones Urine Negative (Negative); Leukocyte Esterase Ur Negative LEU/UL (NEGATIVE); Mucus Urine Heavy /lpf; Nitrate Urine Positive (Negative); Protein Urine 2+ mg/dL (Negative); Specific Grav Ur 1.014 (1.001-1.035); Squamous Epithelial Cell Urine Rare /hpf (Few); Urobilinogen Urine Negative mg/dL (<2.0)
== END 2020-05-18 10:41 | disposition home or self-care (01) ==
LOC: ANHLAB 10:42
PROVIDERS: PCP Family Medicine; Visit Provider Nurse Practitioner Family
DX: N39.0 Urinary tract infection, site not specified (principal)
CPT/HCPCS: 81001; 87086; 87088

== ENCOUNTER 2020-07-19 08:18 | Outpatient (NON) | payer MEDICARE, SELFPAY ==
[2020-07-19 23:03] LABS: SARS-CoV-2 RNA PCR Negative
== END 2020-07-19 08:19 ==
LOC: ANHCOVIDDT 08:19
PROVIDERS: PCP Family Medicine; Visit Provider Family Medicine
DX: R68.89 Other general symptoms and signs (principal); Z20.828 Contact with and (suspected) exposure to other viral communicable diseases
CPT/HCPCS: 87635; C9803; U0003

== ENCOUNTER 2021-01-10 13:39 | Emergency (ER) | payer MEDICARE, SELFPAY ==
--- NOTE | ~2021-01-10 | XR_ITS ---
XR wrist RT min 3V 01/10/2021 14:00 INDICATION: Right wrist pain after fall PROCEDURE: 4 views right wrist COMPARISON: No prior studies for comparison. FINDINGS: Fracture, dislocation or subluxation is not identified. There are mild degenerative changes of the triscaphe and first MCP joints. The soft tissues appear within normal limits. No foreign bod ies are identified. IMPRESSION: 1: NO ACUTE BONE OR JOINT ABNORMALITY IDENTIFIED. Reviewed, dictated and finalized at location B.
--- NOTE | 2021-01-10 13:47 | ED.UPPEXIN ---
HPI - Extremity Injury (Upper) General Chief Complaint: Extremity Injury, Upper Stated Complaint: wrist injury Time Seen by Provider: 01/10/21 13:47 Source: patient and RN notes reviewed History of Present Illness HPI narrative: Patient is a 80-year-old female who presents the urgent care with complaints of a right wrist injury after falling backwards and catching herself over in an open pull out operator. Patient states that happened approximately 20 minutes prior to arrival and she did not do anything for her pain prior to arrival. Patient denies hitting her head or any loss of consciousness. Denies of any other acute injuries from the fall. No acute distress noted. Patient and spouse aware of the plan of care. Some parts of this dictation were generated by voice recognition software and may contain typographical and/or grammatical inaccuracies. Related Data Home Medications Medication Instructions Recorded Confirmed sertraline 50 mg tablet 75 mg PO DAILY tablet 11/23/19 12/02/20 Allergies Allergy/AdvReac Type Severity Reaction Status Date / Time amoxicillin [From Augmentin] Allergy Vomiting Verified 12/02/20 14:31 clavulanic acid Allergy Vomiting Verified 12/02/20 14:31 [From Augmentin] levofloxacin AdvReac Unknown Nausea and Verified 12/02/20 14:31 Vomiting polymyxin B AdvReac Unknown Nausea and Verified 12/02/20 14:31 Vomiting Sulfa (Sulfonamide AdvReac Unknown Nausea and Verified 12/02/20 14:31 Antibiotics) Vomiting trimethoprim AdvReac Unknown Nausea and Verified 12/02/20 14:31 Vomiting Review of Systems Review of Systems: Narrative: CONSTITUTIONAL: Denies fever, chills, or sweats. EYES: Denies visual changes, redness, or discharge. ENT: Denies rhinorrhea, congestion, sore throat, or otalgia. CARDIOVASCULAR: Denies chest pain, palpitations, or edema. RESPIRATORY: Denies cough or dyspnea. GASTROINTESTINAL: Denies abdominal pain, nausea, vomiting, or diarrhea. GENITOURINARY: Denies dysuria or hematuria. SKIN: Denies rash or itching. MUSCULOSKELETAL: Reports of right wrist pain due to fall NEUROLOGIC: Denies headache, numbness, or weakness. All other systems reviewed are negative, except as documented in HPI. PMFSH Past Medical History Medical History Anxiety Cardiomyopathy due to hypertension, without heart failure Chronic insomnia Cyclic vomiting syndrome Depression Dizziness History of basal cell carcinoma History of small bowel obstruction HLD (hyperlipidemia) With statin intolerance. Hypertension [place] (myocardial infarction) Parastomal hernia without obstruction or gangrene (Unknown) Repaired once in the past in 2007. Primary squamous cell carcinoma of urethra Diagnosed in 1999, status post radical cystoscopy with ileal conduit, chemotherapy, and radiation. She is followed by Dr. Zan Alejandro at [facility]. CT of the abdomen and pelvis done at annual visit on 06/11/2019 showed no evidence of recurrence or metastatic disease. Transitional cell carcinoma of bladder Diagnosed in 1999, status post radical cystoscopy with ileal conduit, chemotherapy, and radiation. She is followed by Dr. Zan Alejandro at [facility]. CT of the abdomen and pelvis done at annual visit on 06/11/2019 showed no evidence of recurrence or metastatic disease. Surgical History Surgical History H/O exploratory laparotomy Approximately 2007 with adhesiolysis and shona stomal hernia repair History of hernia repair Exploratory laparotomy with extensive adhesiolysis and peristomal hernia repair in October of 2007. History of ileal conduit For squamous cell carcinoma of the urethra and noted positive transitional cell carcinoma of the bladder. Node positive with lymph node dissection during surgery. History of partial thyroidectomy 1976, benign mass. History of total cystectomy For squamous
[2021-01-10 13:51] VITALS: BP 99/50; PULSE 67; RESP 18; TEMP 36.3; O2SAT 98
== END 2021-01-10 14:16 | disposition home or self-care (01) ==
PROVIDERS: Emergency Provider Nurse Practitioner Family; PCP Family Medicine
DX: S63.501A Unspecified sprain of right wrist, initial encounter (principal); S66.911A Strain of unspecified muscle, fascia and tendon at wrist and hand level, right hand, initial encounter; W19.XXXA Unspecified fall, initial encounter; Z87.891 Personal history of nicotine dependence; F41.9 Anxiety disorder, unspecified; I11.0 Hypertensive heart disease with heart failure; I50.9 Heart failure, unspecified; F51.04 Psychophysiologic insomnia; F32.9 Major depressive disorder, single episode, unspecified; Z85.828 Personal history of other malignant neoplasm of skin; Z85.51 Personal history of malignant neoplasm of bladder; E78.5 Hyperlipidemia, unspecified; I25.2 Old myocardial infarction
CPT/HCPCS: 73110; 99213; G0463

== ENCOUNTER 2021-02-23 03:53 | Inpatient (IN) | payer MEDICARE, SELFPAY ==
[2021-02-23] VITALS (12 sets, daily range): BP systolic 104–144; BP diastolic 49–82; PULSE 66–115; RESP 14–31; TEMP 36.2–36.6; O2SAT 95–100; BMI 22.5
--- NOTE | ~2021-02-23 | XR_ITS ---
EXAMINATION: XR abdomen/kub 1V INDICATION: Small bowel obstruction TECHNIQUE: Supine views of the abdomen were obtained on 2 radiographs. COMPARISON: 02/23/2021 FINDINGS: The nasogastric tube is in the stomach. There are a few mildly dilated small bowel loops in the right abdomen with apparent slight improvement. A moderate volume of colonic stool is present. S urgical clips are present in the pelvis. The visualized lung bases are clear. IMPRESSION: 1. Dilated small bowel with possible slight improvement. Reviewed, dictated and finalized at location A.
--- NOTE | ~2021-02-23 | CT_ITS ---
EXAMINATION: CT abdomen pelvis w con DATE: 02/23/2021 05:22 INDICATION: Abdominal pain. TECHNIQUE: Computed tomography (CT) of the abdomen and pelvis was performed with 100 mL Omnipaque-350 intravenous contrast. Automated exposure control and iterative reconstruction technique were employe d. The dose-length product was 311.93 mGy-cm. COMPARISON: 07/26/2019 FINDINGS: Mild left basilar atelectasis and minimal dependent atelectasis in the right lower lobe. Visualized i nferior heart is normal. No pericardial or pleural effusion. Small sliding-type hiatal hernia. Liver, gallbladder, spleen, pancreas, bilateral adrenal glands and right kidney are normal. A few subcentim eter cysts in the left kidney the largest measuring 6 mm . There is mild bilateral hydronephrosis lik jaun related to a prior ileal conduit which extends to an ostomy in the right lower quadrant. Incident ally noted is partially distended. Left renal collecting system. There is a parastomal hernia near th e terminal ileum of a short segment of small bowel at an anastomosis likely representing the site of the ileal loop donor site. The bowel on either side of the herniation is decompressed. There is howev er a transition point a short distance more proximally along the distal ileum near the right internal inguinal ring where the bowel and undergoes a sharp angulation at the transition point with pseudofe bhavin sign immediately more proximal small bowel which is dilated to 4.5 cm. Multiple loops of mildly d ilated fluid-filled small bowel extend more proximally to the jejunum. There is relatively uniform mu cosal enhancement throughout the small bowel with no evident wall thickening. The colon and appendix are normal. Postoperative change of prior cystectomy with multiple surgical clips in the pelvis on th e left or right consistent with associated pelvic lymph node dissection. Uterus and bilateral adnexa are unremarkable. No free intraperitoneal gas or fluid. No pathologically enlarged abdominal or pelvi c lymphadenopathy. Severe bilateral facet osteoarthritis at L4-L5 with 6 mm anterolisthesis L4 on L5. Prominent Tarlov cysts with remodeling and expansion of a few of the neural foramina at the sacrum. IMPRESSION: 1. Small bowel obstruction likely due to an adhesion in the anteroinferior right pelvis. 2. Postoperative change of prior cystectomy with right lower quadrant ileal conduit and mild bilatera l hydronephrosis. 3. Parastomal herniation alongside the ileal conduit of a short segment of ileum. Unable to assess wh ether this would potentially be obstructing as this lies distal to the point of the current obstructi on with decompressed small bowel both proximal and distal to the herniated segment. This finding dave g with the current site of the obstruction appear identical to CT performed on 07/26/2019. Reviewed, dictated and finalized at location A. IMPRESSION: 1. Small bowel obstruction likely due to an adhesion in the anteroinferior righ t pelvis. 2. Postoperative change of prior cystectomy with right lower quadrant ileal con duit and mild bilateral hydronephrosis. 3. Parastomal herniation alongside the ileal conduit of a short segment of ileu m. Unable to assess whether this would potentially be obstructing as this lies distal to the point of the current obstruction with decompressed small bowel alisha th proximal and distal to the herniated segment. This finding along with the cu rrent site of the obstruction appear identical to CT performed on 07/26/2019.
--- NOTE | ~2021-02-23 | XR_ITS ---
EXAMINATION: XR UGI water soluble w sbs DATE: 02/24/2021 12:18 INDICATION: Small bowel obstruction TECHNIQUE: Water-soluble contrast was injected through the patient's existing nasogastric tube. Fluor oscopic spot radiographs of the stomach, and proximal small bowel were obtained. Additional overhead radiographs were obtained during the transit through the small bowel. Spot fluoroscopic images of th e small bowel were obtained upon contrast reaching the cecum. Fluoroscopy exposure time was 1.1 minut es. A total of 9 fluoroscopic images and 5 overhead radiographs were obtained. COMPARISON: None. FINDINGS: Cartilage demonstrates the nasogastric tube tip in proximal side port in the body of the stomach. The stomach and proximal small bowel are normal. There is no hiatal hernia. No gastroesophageal reflux w as observed. There was relatively brisk peristalsis with contrast passing from the stomach to proxima l colon in approximately 15 minutes. There is normal caliber and mucosal fold pattern throughout the small bowel. Terminal ileum is normal. Postoperative changes with multiple surgical clips in the pel vis consistent with prior cystectomy and pelvic lymph node dissection. There is also an anastomotic s uture line projecting over the right lower quadrant ostomy for an ileal conduit. IMPRESSION: 1. Resolution of prior small bowel obstruction with no residual dilated loops of bowel and with rapid passage of contrast from the stomach to the colon within 15 minutes. Reviewed, dictated and finalized at location A. IMPRESSION: 1. Resolution of prior small bowel obstruction with no residual dilated loops o f bowel and with rapid passage of contrast from the stomach to the colon within 15 minutes.
--- NOTE | ~2021-02-23 | XR_ITS ---
EXAMINATION: XR abdomen NG/feed tube insert DATE: 02/23/2021 07:48 INDICATION: Nasogastric tube placement TECHNIQUE: A supine view of the abdomen and lower chest was obtained for evaluation of feeding tube placement. COMPARISON: CT dated 02/23/2021 FINDINGS: Nasogastric tube tip in the body of the stomach with proximal side-port at the level of the gastroeso phageal junction. Excreted contrast from prior CT is seen within the bilateral renal collecting syste ms. There is a mild left hydroureteronephrosis with duplicated left renal collecting system with a pa ir of ureters which extend towards the right with additional contrast opacified urine seen within a r ight lower quadrant ileal conduit. Dilated loop of gas-filled bowel is seen in the left lower quadran t consistent with previously noted small bowel obstruction. Visualized portions of the lung bases are clear. Heart size is normal. IMPRESSION: 1. Nasal gastric tube tip in the body of the stomach. Consider advancement by [address] the proximal side-port below the level of the gastroesophageal junction. 2. Small bowel obstruction. 3. Ileal conduit with mild hydroureteronephrosis of a duplicate left renal collecting system and uret ers. Reviewed, dictated and finalized at location A. IMPRESSION: 1. Nasal gastric tube tip in the body of the stomach. Consider advancement by [address] the proximal side-port below the level of the gastroesophageal juncti on. 2. Small bowel obstruction. 3. Ileal conduit with mild hydroureteronephrosis of a duplicate left renal elliot ecting system and ureters.
--- NOTE | 2021-02-23 04:04 | ECG_ITS ---
Measurements Intervals [place] Rate: 71 P: 83 UT: 158 QRS: -2 QRSD: 90 T: 68 QT: 481 QTc: 526 Interpretive Statements SINUS RHYTHM PROLONGED QT INTERVAL BASELINE ARTIFACT- II, III, AVR, AVL, AVF ABNORMAL ECG Electronically Signed On 02-23-2021 5:57:34 CDT by Maurice Bello D.O.
--- NOTE | 2021-02-23 04:11 | PC.NURSE ---
ATIVAN PULLED UNDER WRONG PATIENT. NOT GIVEN TO THIS PATIENT. RETURNED TO [facility] DRAWER.
--- NOTE | 2021-02-23 04:18 | ED.GENADULT ---
HPI - General Adult General Chief complaint: Nausea/Vomiting/Diarrhea Stated complaint: VOMITING Time Seen by Provider: 02/23/21 04:03 History of Present Illness HPI narrative: Patient 80-year-old female presents to emergency department chief complaint of abdominal pain nausea vomiting. 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 Patient reports that she started having abdominal discomfort nausea and vomiting and reports that she has not really had good bowel movements since that patient does report she is pacing subtest reports this feels similar to when she had obstructions before in the past and reports that usually are able to return to normal function with conservative management. Related Data Home Medications Medication Instructions Recorded Confirmed sertraline 50 mg tablet 75 mg PO DAILY tablet 11/23/19 01/10/21 Allergies Allergy/AdvReac Type Severity Reaction Status Date / Time amoxicillin [From Augmentin] Allergy Vomiting Verified 02/23/21 04:10 clavulanic acid Allergy Vomiting Verified 02/23/21 04:10 [From Augmentin] levofloxacin AdvReac Unknown Nausea and Verified 02/23/21 04:10 Vomiting polymyxin B AdvReac Unknown Nausea and Verified 02/23/21 04:10 Vomiting Sulfa (Sulfonamide AdvReac Unknown Nausea and Verified 02/23/21 04:10 Antibiotics) Vomiting trimethoprim AdvReac Unknown Nausea and Verified 02/23/21 04:10 Vomiting Review of Systems Review of Systems: A 10 system review of systems was completed on the patient and is negative except for what is stated in the HPI. Nursing and ancillary documentation was reviewed. [facility] Past Medical History Medical History Anxiety Cardiomyopathy due to hypertension, without heart failure Chronic insomnia Cyclic vomiting syndrome Depression Dizziness History of basal cell carcinoma History of small bowel obstruction HLD (hyperlipidemia) With statin intolerance. Hypertension [place] (myocardial infarction) Parastomal hernia without obstruction or gangrene (Unknown) Repaired once in the past in 2007. Primary squamous cell carcinoma of urethra Diagnosed in 1999, status post radical cystoscopy with ileal conduit, chemotherapy, and radiation. She is followed by Dr. Zan Alejandro at [facility]. CT of the abdomen and pelvis done at annual visit on 06/11/2019 showed no evidence of recurrence or metastatic disease. Transitional cell carcinoma of bladder Diagnosed in 1999, status post radical cystoscopy with ileal conduit, chemotherapy, and radiation. She is followed by Dr. Zan Alejandro at [facility]. CT of the abdomen and pelvis done at annual visit on 06/11/2019 showed no evidence of recurrence or metastatic disease. Surgical History Surgical History H/O exploratory laparotomy Approximately 2007 with adhesiolysis and shona stomal hernia repair History of hernia repair Exploratory laparotomy with extensive adhesiolysis and peristomal hernia repair in October of 2007. History of ileal conduit For squamous cell carcinoma of the urethra and noted positive transitional cell carcinoma of the bladder. Node positive with lymph node dissection during surgery. History of partial thyroidectomy 1976, benign mass. History of total cystectomy For squamous cell carcinoma of the urethra and node positive transitional cell carcinoma of the bladder in 1999. Status post surgical removal of malignant neoplasm of skin Basal cell carcinoma. Family History Family History Father Family history of diabetes mellitus in first degree relative Family history of coronary artery disease Mother Family history of coronary artery disease Cerebrovascular accident Sibling No problems noted.
[2021-02-23] MEDS: PROCHLORPERAZINE EDISYLATE 10 MG/2 ML VIAL IV PUSH (04:29)
[2021-02-23] MEDS: SODIUM CHLORIDE 0.9% IV 1,000 ML 999 ML IV CONT (04:29)
[2021-02-23] MEDS: MORPHINE SULFATE (*CRX) 4 MG/ML INJ IV PUSH (04:31)
[2021-02-23 04:43] LABS: Basophils Percent Auto 0.4 % (0.2-1.2); Eosinophils Percent Auto 0.1 % (0-4.4); Hematocrit 43.2 % (37.0-47.0); Hemoglobin 14.7 g/dL (12.0-15.0); Immature Granulocyte Absolute 0.03 K/mm3 (0.00-0.031); Immature Granulocyte Percent A 0.3 % (0-0.5); Lymphocytes Absolute Auto 0.33 K/mm3 (0.9-3.2); Lymphocytes Percent Auto 3.3 % (18.3-44.2); Mean Corpuscular Hemoglobin 30.4 pg (26-34); Mean Corpuscular Volume 89.4 fl (80-100); Monocytes Absolute Auto 0.4 K/mm3 (0.1-0.6); Monocytes Percent Auto 3.5 % (2.6-8.5); Neutrophils Absolute Auto 9.4 K/mm3 (1.3-6.7); Neutrophils Percent Auto 92.4 % (45.5-73.1); Platelet Count Result 196 k/mm3 (150-375); Red Blood Count 4.83 M/mm3 (4.2-5.4); Red Cell Distribution Width 13.2 % (11.5-14.5); White Blood Count 10.1 K/mm3 (4.5-10.0)
[2021-02-23 04:56] LABS: Alanine Aminotransferase 17 U/L (4-35); Albumin Level 4.3 g/dL (3.5-5.1); Alkaline Phosphatase 150 U/L (38-126); Anion Gap 9 mmol/L (8-16); Aspartate Amino Transferase 27 U/L (14-36); Bilirubin,Total 0.7 mg/dL (0.2-1.3); Blood Urea Nitrogen 21 mg/dL (7-17); Calcium 9.8 mg/dL (8.4-10.2); Carbon Dioxide 23 mmol/L (22-30); Chloride 105 mmol/L (98-107); Estimated Glomerular Filt Rate > 60; Glucose 151 mg/dL (65-110); Lipase 84 U/L (23-300); Magnesium 1.9 mg/dL (1.6-2.3); Potassium 3.8 mmol/L (3.4-5.0); Sodium 137 mmol/L (137-145)
--- NOTE | 2021-02-23 05:07 | PC.NURSE ---
Pt to CT via stretcher at this time.
[2021-02-23 05:10] LABS: Troponin I 0.058 ng/mL (0.000-0.034)
--- NOTE | 2021-02-23 05:17 | PC.NURSE ---
Urine sample and blood specimens sent to lab at same time, in proper tubes, at 0425. This RN called lab to follow up on urine not being received or resulted. Spoke to [place] and was informed that urine was never received and new specimen must be sent. maintenance millwright and EDP notified.
--- NOTE | 2021-02-23 05:21 | PC.NURSE ---
Lab called to inform us that it has the urine
[2021-02-23 05:29] LABS: Add Urine Microscopic? YES; Appearance Urine Cloudy (Clear); Bacteria Urine Trace /hpf; Bilirubin Urine Negative (Negative); Blood Urine 1+ (Negative); Color Urine Yellow (Yellow); Glucose Urine UA Negative (Negative); Ketones Urine Trace mg/dL (Negative); Leukocyte Esterase Ur Negative LEU/UL (Negative); Mucus Urine Rare /lpf; Nitrate Urine Positive (Negative); Protein Urine Negative (Negative); Specific Grav Ur 1.011 (1.001-1.035); Urobilinogen Urine Negative mg/dL (<2.0)
--- NOTE | 2021-02-23 07:24 | PC.NURSE ---
bedside report from domitila ruby. care assumed at this time.
[2021-02-23] MEDS: ONDANSETRON INJ 4 MG/2 ML VIAL IV PUSH (07:38)
--- NOTE | 2021-02-23 10:30 | PM.IMHP ---
H&P: HPI History of Present Illness Date/Time: 02/23/21 10:30 Chief Complaint: Abdominal pain and vomiting Narrative: This is a 80-year-old female who presented to the emergency department with abdominal pain and nausea and vomiting. She has a known history of multiple prior partial small-bowel obstructions. She has a history of primary squamous cell carcinoma of urethra and node positive transitional cell carcinoma of the bladder in 1999. She underwent cystectomy with ileal conduit about 20 years ago. She had a bowel obstruction in 2007 that required exploratory laparotomy and adhesiolysis, and she also had a parastomal hernia repaired at that time as well. She has had multiple bowel obstructions since then that have resolved with conservative measures. The last hospitalization was in July of 2019, when she was treated successfully with conservative measures. She experiences obstructive-type symptoms at home every couple of months, that typically resolve with bowel rest and time. She reports that her current symptoms started last night around 8:00 pm with generalized abdominal pain. This pain continued to worsen through the night, and she developed nausea and had multiple episodes of vomiting. The pain became unbearable, therefore she presented to the ER overnight for evaluation. CT scan of the abdomen and pelvis suggests a small bowel obstruction with a transition point in a similar position as seen on the CT scan in July of 2019. NG has been placed and was also reportedly advanced after initial abdominal x-ray in the ER. She has been started on IV fluids and was given a dose of Morphine in the ER. The patient is now slightly drowsy after receiving the Morphine, but easily arousable and answering questions appropriately. She reports her abdominal pain and bloating has improved. She is not currently having any abdominal pain, but reports it comes and goes. Still having some nausea. Denies flatus, and has not had a bowel movement since yesterday. Review of Systems Review of Systems: All systems reviewed & are unremarkable except as noted in HPI and below Constitutional: Constitutional: Reports as per HPI, Denies chills and Denies fever(s) ENT: Reports Normal hearing present Cardiovascular: Cardiovascular: Reports no additional cardiovascular complaints, Denies chest pain, Denies chest pain at rest, Denies chest pain with activity, Denies syncope, Denies rapid heart rate, Denies irregular heart rhythm, Denies leg edema, Denies lightheadedness and Denies radiating jaw, neck or arm pain Respiratory: Respiratory: Reports no additional respiratory complaints, Denies cough and Denies dyspnea Gastrointestinal: Gastrointestinal: Reports as per HPI, Reports no additional gastrointestinal complaints, Reports abdominal pain (comes and go), Reports bloating, Denies change in bowel habits, Denies change in stool character, Denies coffee ground emesis, Reports GI cramping, Reports nausea, Reports vomiting and Denies hematemesis Genitourinary: Genitourinary: Denies hematuria, Denies dysuria and Reports other (hx urethral cancer, see history) Musculoskeletal: Musculoskeletal: Denies abnormal gait and Denies deformity Integumentary/Breasts: Skin/Breast: Reports other (RLQ stoma for ileal conduit) Neurologic: Reports system reviewed and no additional complaints, except as documented, Denies dizziness, Denies focal weakness, Denies numbness and Denies tingling Psychiatric: Psychiatric: Reports depression (takes sertraline for this, stable) [facility] Past Medical History Medical History Cardiomyopathy due to hypertension, without heart failure Chronic insomnia History of basal cell carcinoma History of [place] (myocardial infarction) History of small bowel obstruction HLD (hyperlipidemia) With statin intolerance. Hypertension Personal history of antineoplastic chemotherapy Primary squamous cell carcinom
--- NOTE | 2021-02-23 10:59 | ADMGEN ---
This patient, Roxanne Zuniga, was admitted to 2 Medical Room 248-. Patient/family oriented to hospital policies and general routines including ID bracelet, bed and alarms, visiting hours, pain management, procedures, bathroom and other care routines, personal items, smoking policy, room service/diet, and visiting hours. Information on how to activate the Rapid Response Team has been discussed. Patient/Family are encouraged to report perceived risks to care and to ask questions if they do not understand what they are told or what they should do.
--- NOTE | 2021-02-23 12:06 | PM.PNGS ---
Progress Note: A&P Assessment and Plan (1) Small bowel obstruction: Code(s): K56.609 - Unspecified intestinal obstruction, unspecified as to partial versus complete obstruction Status: Acute Assessment and Plan: high-grade obstruction, recurrent. Patient at high risk if surgery is done due to previous surgeries and previous pelvic radiation following resection for urethral cancer. Will treat with NG suction, IV fluid resuscitation, analgesics. Follow serial exams, labs, and KUB. Explained to patient. (2) History of cancer of urethra: Code(s): Z85.59 - Personal history of malignant neoplasm of other urinary tract organ Status: Chronic Assessment and Plan: Status post resection and ileal conduit 20 years ago. (3) Parastomal hernia of ileal conduit: Code(s): K94.19 - Other complications of enterostomy Status: Chronic Assessment and Plan: Asymptomatic. (4) Personal history of irradiation: Code(s): Z92.3 - Personal history of irradiation Status: Chronic Assessment and Plan: Pelvic radiation associated with squamous cell cancer the urethra (5) Elevated troponin: Code(s): R77.8 - Other specified abnormalities of plasma proteins Status: Acute Assessment and Plan: asymptomatic. Has occurred with previous small bowel obstructions and has not represented any significant cardiac disease. Subjective Subjective Date/Time Seen: 02/23/21 12:06 Patient reports: pain is less, nausea and vomiting Interval history: Patient is a 80-year-old woman who has a remote history of urethral cancer. She had resection with ileal conduit probably 20 years ago. She was node positive and had radiation therapy following surgery. Around 10-12 years ago, she had a bowel obstruction and had laparotomy. The obstruction resolved but she has had numerous episodes of small-bowel obstruction since then. She was here previously in July of 2019 with a small-bowel obstruction. This resolved with NG suction. She developed abdominal pain last night. This got worse. It was diffuse. She developed nausea and vomiting. Eventually she came to the emergency room. In the emergency room she was noted to have a distended abdomen. Imaging particularly CT scan showed evidence of a small-bowel obstruction that had recurred yet again. Nasogastric tube is been placed. She is admitted to the floor. Her pain is improved from last night and is mild at present. She is admitted now for recurrent small-bowel obstruction. She is known to have a peristomal hernia associated with her right lower quadrant ileal conduit but has continued to have good urine output and no symptoms from the peristomal hernia. Review of Systems Review of Systems: All systems reviewed & are unremarkable except as noted in HPI and below Constitutional: Constitutional: Denies headache(s) and Reports other ( Very sleepy at present, no sleep last night) Cardiovascular: Cardiovascular: Denies chest pain and Denies dyspnea Respiratory: Respiratory: Denies cough and Denies dyspnea Gastrointestinal: Gastrointestinal: Reports as per HPI Neurologic: Denies confusion and Denies headache(s) Exam Const: General: comfortable and no acute distress; No confusion Orientation/consciousness: patient oriented x3 and No confusion GI: Inspection: distended, scar ( midline) and other ( right lower quadrant ileal conduit) GI Palp: Yes Soft to palpation, Yes Tenderness to palpation present (GI), No Guarding due to palpation present (GI) and No Rebound tenderness present Auscultation: absent bowel sounds Urinary Catheter: Urinary Catheter: other ( ileal conduit draining well) Neuro: General: patient oriented x3, no focal motor deficits and No confusion Extrem: General: no calf tenderness and no edema Psych: Affect: normal affect Insight: Good insight present (Psych) Judgement: Good judgement present (Psych) Ob
[2021-02-23] MEDS: SODIUM CHLORIDE 0.9% IV 1,000 ML 125 ML IV CONT ×2 (13:06→21:39)
--- NOTE | 2021-02-23 14:22 | PM.CNCAR ---
Assessment and Plan Assessment and plan (1) Elevated troponin: Code(s): R77.8 - Other specified abnormalities of plasma proteins Status: Acute Assessment and Plan: Troponin drawn in the ED for unknown reasons. Patient denies having chest pain currently or at any time during this hospitalization. She has had an elevated troponin in the past up to 1.0 In 2016. At that time, a left heart catheterization showed normal coronary arteries with no evidence of coronary artery disease. EKG did not show any ischemic changes. This elevated troponin does not represent ACS. - patient to report any occurrence of chest pain - she will follow-up with Dr. Rodas at her regularly scheduled outpatient follow-up visit in a few months. (2) Cardiomyopathy due to hypertension, without heart failure: Code(s): I11.9 - Hypertensive heart disease without heart failure; I43 - Cardiomyopathy in diseases classified elsewhere Status: Acute Assessment and Plan: history of takotsubo cardiomyopathy but ejection fraction from January 2020 shows normal systolic function. 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 (3) Hypertension: Code(s): I10 - Essential (primary) hypertension Status: Chronic Assessment and Plan: Currently at goal. (4) QT prolongation: Code(s): R94.31 - Abnormal electrocardiogram [ECG] [EKG] Status: Acute Assessment and Plan: QT interval on EKG from today 481 milliseconds. Would recommend using Zofran and other QT prolonging medications with caution Additional Plan this is a 80-year-old female with past medical history significant for bladder cancer, recurrent bowel obstructions, takotsubo cardiomyopathy. She is not complaining of any chest pain whatsoever and her EKG shows normal sinus rhythm with normal axis -no ischemic changes. It looks like her troponin is chronically elevated. No concern for ACS at this time. We will sign off for now. Thank you for asking us to participate in the care this patient. History of Present Illness History of Present Illness Consult date/time: 02/23/21 14:22 Requesting physician: Billie Fitzgerald FNP Consult reason: Other ( elevated troponin) Reason For Visit: small bowel abstruction Narrative: This is a 72-year-old female with a past medical history of bladder cancer status post radiation, hypertension, recurrent bowel obstructions, cyclic vomiting syndrome, and takotsubo cardiomyopathy who presented to the emergency department with complaints of abdominal pain, nausea, and vomiting. She tells me that she has frequent bowel obstructions and usually is able to manage at home but she states that the pain last night became so unbearable that she decided to proceed to the emergency department. She is being evaluated by general surgery for this bowel obstruction. We were asked by the general surgery service that we see her because it was noted that she had an elevated troponin level of 0.058. She is currently denying and chest pain and denies any chest pain prior to this hospitalization. Apparently, she did have some left sided chest discomfort in the past that was evaluated and found to be non-cardiac and likely musculoskeletal. Review of Systems Review of Systems: All systems reviewed & are unremarkable except as noted in HPI and below Constitutional: Constitutional: Denies body ache(s), Denies chills and Denies fatigue Eyes: Eyes: Denies change in vision ENT: Denies epistaxis Cardiovascular: Cardiovascular: Denies chest pain and Denies palpitations Respiratory: Respiratory: Denies dyspnea and Denies dyspnea on exertion Gastrointestinal: Gastrointestinal: Reports abdominal pain, Reports nausea and Reports vomiting Genitourinary: Genitourinary: Denies hematuria and Denies dysuria Musculoskeletal: Musculoskeletal: Denies back pain, Denies myalgias, Denies joint swelling and Denies neck pain Integumentary/Breasts: Sk
[2021-02-23] MEDS: FAMOTIDINE 20 MG/2 ML VIAL IV PUSH (20:25)
[2021-02-23] MEDS: SERTRALINE HCL 25 MG TABLET 75 MG PO (21:38)
[2021-02-24] VITALS: PULSE 69
[2021-02-24 04:00] VITALS: PULSE 64
[2021-02-24 05:38] LABS: Hematocrit 34.7 % (37.0-47.0); Mean Corpuscular HGB Conc 31.7 g/dl (32-36); Mean Corpuscular Volume 94.6 fl (80-100); Mean Platelet Volume 11.1 fl (7.4-10.4); Platelet Count Result 151 k/mm3 (150-375); Red Blood Count 3.67 M/mm3 (4.2-5.4); Red Cell Distribution Width 13.6 % (11.5-14.5); White Blood Count 3.3 K/mm3 (4.5-10.0)
[2021-02-24 05:51] LABS: Anion Gap 2 mmol/L (8-16); Blood Urea Nitrogen 20 mg/dL (7-17); Calcium 8.3 mg/dL (8.4-10.2); Carbon Dioxide 23 mmol/L (22-30); Chloride 116 mmol/L (98-107); Estimated CRCL calculation 75 ml/min; Estimated Glomerular Filt Rate > 60; Glucose 94 mg/dL (65-110); Potassium 3.9 mmol/L (3.4-5.0); Sodium 141 mmol/L (137-145)
[2021-02-24 06:00] VITALS: BP 136/72; PULSE 65; RESP 14; TEMP 36.4; O2SAT 96
[2021-02-24] MEDS: SODIUM CHLORIDE 0.9% IV 1,000 ML 125 ML IV CONT (06:22)
[2021-02-24 08:00] VITALS: PULSE 87
[2021-02-24] MEDS: FAMOTIDINE 20 MG/2 ML VIAL IV PUSH (08:51)
--- NOTE | 2021-02-24 10:45 | PM.PNGS ---
Progress Note: A&P Assessment and Plan (1) Small bowel obstruction: Code(s): K56.609 - Unspecified intestinal obstruction, unspecified as to partial versus complete obstruction Status: Acute Assessment and Plan: appears the obstruction has resolved again. Will get Gastrografin upper GI small-bowel follow-through. Patient is very anxious to go home. If this is negative, probably she can go home this evening. 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 Wants to go home.) and no bowel movement Review of Systems Review of Systems: All systems reviewed & are unremarkable except as noted in HPI and below Constitutional: Constitutional: Denies anorexia, Denies chills, Denies fever(s) and Denies headache(s) Cardiovascular: Cardiovascular: Denies chest pain and Denies dyspnea Respiratory: Respiratory: Denies cough and Denies dyspnea Gastrointestinal: Gastrointestinal: Reports as per HPI, Denies abdominal pain, Denies diarrhea, Denies nausea and Denies vomiting Neurologic: Denies confusion and Denies headache(s) Exam Const: General: comfortable and no acute distress; No confusion Orientation/consciousness: patient oriented x3 and No confusion GI: Inspection: non-distended, scar and other ( Ileal conduit working well) GI Palp: Yes Soft to palpation, No Tenderness to palpation present (GI), No Guarding due to palpation present (GI) and No Rebound tenderness present Auscultation: normal bowel sounds Neuro: General: patient oriented x3, no focal motor deficits and No confusion Extrem: General: no calf tenderness and no edema Psych: Affect: normal affect Insight: Good insight present (Psych) Judgement: Good judgement present (Psych) Objective Data Vital Signs Vital Signs: Vital Signs - 24 hr 02/23/21 12:00 02/23/21 14:00 02/23/21 16:00 Temperature 36.4 C Pulse Rate 66 71 70 Respiratory Rate 16 Blood Pressure 110/52 L Pulse Oximetry 95 02/23/21 20:00 02/23/21 22:00 02/24/21 00:00 Temperature 36.6 C Pulse Rate 72 83 69 Respiratory Rate 14 Blood Pressure 140/64 Pulse Oximetry 98 02/24/21 04:00 02/24/21 06:00 02/24/21 08:00 Temperature 36.4 C Pulse Rate 64 65 87 Respiratory Rate 14 Blood Pressure 136/72 Pulse Oximetry 96 Intake/Output Intake/Output: Intake & Output 02/21/21 02/22/21 02/23/21 02/24/21 23:59 23:59 23:59 23:59 Intake Total 2100 1100 Output Total 400 850 Balance 1700 250 Meds/Results Medications: Active Medications Generic Name Dose Route Start Last Admin Trade Name Freq PRN Reason Stop Dose Admin Famotidine 20 mg 02/23/21 21:00 02/24/21 08:51 Famotidine 20 Mg/2 Ml Vial IV PUSH 20 mg Q12HR JOHNATHAN Administration Hydralazine HCl 10 mg 02/23/21 10:29 Hydralazine Hcl 20 Mg/Ml Vial IV PUSH Q8H PRN Blood Pressure - High Sodium Chloride 1,000 mls @ 125 mls/hr 02/23/21 07:05 02/24/21 07:37 Normal Saline Iv IV CONT Not Given .Q8H JOHNATHAN Lorazepam 0.5 mg 02/24/21 10:41 Lorazepam (*Crx) 0.5 Mg Tablet PO DAILY PRN Anxiety Morphine Sulfate 4 mg 02/23/21 07:04 Morphine Sulfate (*Crx) 4 Mg/Ml Inj IV PUSH Q2H PRN Pain Rated 7-10 Morphine Sulfate 2 mg 02/23/21 10:26 Morphine Sulfate (*Crx) 2 Mg/Ml Inj IV PUSH Q2H PRN Pain Rated 4-6 Prochlorperazine Edisylate 10 mg 02/23/21 11:44 Prochlorperazine Edisylate 10 Mg/2 Ml Vial IV PUSH 02/24/21 12:00 Q6H PRN Nausea And Vomiting Sertraline
--- NOTE | 2021-02-24 11:27 | PM.DS ---
DS: Admitting Diagnosis Admitting Diagnosis Small bowel obstruction due to adhesions history cancer of the urethra ileal urinary conduit status peristomal hernia-asymptomatic history pelvic radiation therapy. DS: Discharge Diagnosis Discharge Diagnosis (1) Small bowel obstruction: Code(s): K56.609 - Unspecified intestinal obstruction, unspecified as to partial versus complete obstruction Status: Acute Assessment and Plan: patient presented with recurrent small bowel obstruction on 02/23/2021. (2) History of cancer of urethra: Code(s): Z85.59 - Personal history of malignant neoplasm of other urinary tract organ Status: Chronic (3) Parastomal hernia of ileal conduit: Code(s): K94.19 - Other complications of enterostomy Status: Chronic (4) Personal history of irradiation: Code(s): Z92.3 - Personal history of irradiation Status: Chronic (5) Hypertension: Code(s): I10 - Essential (primary) hypertension Status: Chronic (6) Major depressive disorder, recurrent, unspecified: Code(s): F33.9 - Major depressive disorder, recurrent, unspecified Status: Chronic DS: Summary Hospital Course Reason for hospitalization: Recurrent small bowel obstruction Hospital Course: Patient has a history of extensive pelvic surgery status post resection of urethral cancer over 20 years ago. She received an ileal conduit and had postoperative pelvic radiation therapy. She was node positive. She did well after this but developed a small-bowel obstruction about 10 years ago. She had surgery for this small bowel obstruction. The obstruction resolved but since then she has had recurrent episodes of small-bowel obstruction. Fortunately these have resolved with nasogastric suction IV fluids and analgesics. Her last previous admission for this was in July of 2019. The patient developed severe abdominal diffuse pain with vomiting the night before admission. She came to the emergency room and was admitted on 02/23/2021 with abdominal pain nausea vomiting and abdominal distention. CT scan showed recurrent small-bowel obstruction. She also has a peristomal hernia of the ileal conduit in the right lower quadrant but this is asymptomatic. Despite this being a high-grade obstruction on CT scan, the patient had a nasogastric tube placed and received IV fluids and analgesics. By the next morning, 02/24/2021, her pain was gone and she was wanting to be discharged. She had good bowel sounds and no further abdominal distention or tenderness. A Gastrografin upper GI small bowel series was done and showed rapid transit through the small intestine consistent with resolved small bowel obstruction. The patient was tried on oral intake and tolerated this well. She was anxious to be discharged and was discharged later in the day on 02/24/2021. In the emergency room, the patient had troponin levels drawn. She did not have any chest pain or shortness of breath. She does have a history of cardiomyopathy likely due to chronic hypertension. The troponin levels were slightly elevated. Cardiology consult was obtained. They felt there was no significance to these elevated troponins and recommended routine follow-up several months from now for her cardiomyopathy with Dr. Rodas. Status at Discharge Functional status at discharge: independent ambulation Overall status at discharge: patient is progressing back to baseline Time Spent with Patient Time attestation: Total time spent providing and/or coordinating discharge services: Time spent: Less than 30 minutes Exam GI: Inspection: non-distended, scar and other ( Right lower quadrant urinary ileal conduit) GI Palp: No Soft to palpation and No Tenderness to palpation present (GI) Auscultation: normal bowel sounds DS: Data Data Completed and Pending Labs on day of discharge: Labs from last 24 hours 02/24/21 02/24/21 05:26 05:26
[2021-02-24 14:00] VITALS: BP 128/70; PULSE 66; RESP 16; TEMP 36.4; O2SAT 96
== END 2021-02-24 18:00 | disposition home or self-care (01) | DRG 389 ==
LOC: ANHED 06:36 → ANH2MED 07:47
PROVIDERS: Nurse Practitioner Family; Admitting Provider Surgery; Emergency Provider Emergency Medicine; PCP Family Medicine; Visit Provider Surgery
DX: K56.50 Intestinal adhesions [bands], unspecified as to partial versus complete obstruction (principal); K94.19 Other complications of enterostomy; I43 Cardiomyopathy in diseases classified elsewhere; F33.9 Major depressive disorder, recurrent, unspecified; I11.9 Hypertensive heart disease without heart failure; R77.8 Other specified abnormalities of plasma proteins; R94.31 Abnormal electrocardiogram [ECG] [EKG]; Z79.899 Other long term (current) drug therapy; Z85.59 Personal history of malignant neoplasm of other urinary tract organ; Z87.891 Personal history of nicotine dependence; Z92.3 Personal history of irradiation
CPT/HCPCS: 36415; 74018; 74177; 74240; 74248; 80048; 80053; 81001; 83605; 83690; 83735; 84484; 85025; 85027; 87086; 87088; 93005; 96361; 96374; 96375; 99285; A9270; J0131; J0780; J2060; J2270; J2405; J7030; Q9967

== ENCOUNTER 2021-07-07 18:57 | Emergency (ER) | payer MEDICARE, SELFPAY | END 2021-07-08 05:29 | disposition left against medical advice (07) | PROVIDERS: PCP Family Medicine | DX: Z53.21 Procedure and treatment not carried out due to patient leaving prior to being seen by health care provider (principal) | CPT/HCPCS: 99199 ==

== ENCOUNTER → 2021-08-01 08:22 | Outpatient (CLI) | payer MEDICARE, SELFPAY ==
[2021-08-01 15:14] LABS: Influenza Control Positive
[2021-08-01 21:02] LABS: SARS-CoV-2 RNA PCR Positive
== END ==
PROVIDERS: PCP Family Medicine; Visit Provider Physician Assistant
DX: R68.89 Other general symptoms and signs (principal); R05.9 Cough, unspecified; R53.1 Weakness; U07.1 COVID-19
CPT/HCPCS: 87804; C9803; U0003; U0005

== ENCOUNTER 2022-05-15 05:08 | Emergency (ER) | payer MEDICARE, SELFPAY ==
[2022-05-15] VITALS (11 sets, daily range): BP systolic 102–161; BP diastolic 61–85; PULSE 65–80; RESP 17–28; TEMP 36.4; O2SAT 90–99
--- NOTE | ~2022-05-15 | XR_ITS ---
EXAMINATION: XR chest 2V DATE: 05/15/2022 06:40 INDICATION: Chest pain TECHNIQUE: PA and lateral views of the chest were obtained. COMPARISON: Chest radiograph dated 07/18/2015 FINDINGS: Chronic small linear band of discoid atelectasis/scarring at the medial left lung base. No other airs pace opacities, pulmonary edema, pleural effusion or pneumothorax. The cardiomediastinal silhouette i s normal. Mild thoracic spondylosis. IMPRESSION: 1. Chronic discoid atelectasis/scarring at the left lung base. No acute cardiopulmonary disease. Reviewed, dictated and finalized at location A. IMPRESSION: 1. Chronic discoid atelectasis/scarring at the left lung base. No acute cardiop ulmonary disease.
--- NOTE | ~2022-05-15 | CT_ITS ---
EXAMINATION: CT abdomen pelvis w con DATE: 05/15/2022 06:34 INDICATION: Abdominal pain TECHNIQUE: Computed tomography (CT) of the abdomen and pelvis was performed with 100 mL Omnipaque-350 intravenous contrast. Automated exposure control and iterative reconstruction technique were employe d. The dose-length product was 335.67 mGy-cm. COMPARISON: 02/23/2021 FINDINGS: Unchanged mild discoid atelectasis/scarring in the medial left lower lobe. Heart size is normal. No p ericardial or pleural effusion. Small sliding-type hiatal hernia. Tiny hepatic cyst. Gallbladder, roberts creas, spleen and bilateral adrenal glands are normal. There are a few subcentimeter cysts in the lef t kidney. Unchanged small regions of cortical scarring in both kidneys likely related to chronic infe ction. Mild bilateral renal caliectasis without ryan hydronephrosis. Status post cystectomy with rig ht lower quadrant ileal conduit formation. Subtle urothelial enhancement at the ureters and renal pel vises which could be related to ascending urinary tract infection. There is a recurrent small bowel o bstruction with dilated small bowel extending to a abrupt transition point to decompressed bowel with associated pseudofeces sign at the same site as before in the anterior inferior right pelvis. At the right lower quadrant ostomy there is a parastomal hernia containing a short segment of the more dist al decompressed small bowel at the site of an anastomotic suture line. Colon and appendix are unremar kable. Uterus is unremarkable. Surgical clips in the pelvis consistent bilateral pelvic lymph node di ssections. Minimal amount of free fluid in the pelvis. No abscess or free intraperitoneal gas. No pat hologically enlarged abdominal or pelvic lymphadenopathy. 7 mm anterolisthesis of L4 on a transitiona l L5 segment with severe associated facet osteoarthritis. IMPRESSION: 1. Recurrent small bowel obstruction with transition point in the anterior inferior right hemipelvis. 2. Postoperative changes of cystectomy with right lower quadrant ileal conduit formation. Associated parastomal hernia containing a short segment of the more distal decompressed distal ileum. 3. Persistent mild bilateral renal caliectasis with subtle urothelial enhancement along the ureters a nd renal pelvises suggesting ascending urinary tract infection, likely chronic and recurrent with sma ll regions of cortical scarring the kidneys suggesting earlier infection. 4. Small sliding-type hiatal hernia. Reviewed, dictated and finalized at location A. IMPRESSION: 1. Recurrent small bowel obstruction with transition point in the anterior infe rior right hemipelvis. 2. Postoperative changes of cystectomy with right lower quadrant ileal conduit formation. Associated parastomal hernia containing a short segment of the more distal decompressed distal ileum. 3. Persistent mild bilateral renal caliectasis with subtle urothelial enhanceme nt along the ureters and renal pelvises suggesting ascending urinary tract infe ction, likely chronic and recurrent with small regions of cortical scarring the kidneys suggesting earlier infection. 4. Small sliding-type hiatal hernia.
--- NOTE | 2022-05-15 05:10 | ECG_ITS ---
Measurements Intervals Mentor Rate: 69 P: NM: 0 QRS: -26 QRSD: 90 T: 29 QT: 473 QTc: 507 Interpretive Statements SINUS RHYTHM BASELINE ARTIFACT IS PRESENT LEFT AXIS DEVIATION COMPARED TO ECG 02/23/2021 04:20:41 NO SIGNIFICANT CHANGES Electronically Signed On 05-15-2022 16:08:21 CDT by Eric Walton M.D.
--- NOTE | 2022-05-15 05:22 | ED.GENADULT ---
HPI - General Adult General Chief complaint: Chest Pain <Edmund Arambula MD - Last Filed: 05/15/22 05:25> Stated complaint: chest pain <Edmund Arambula MD - Last Filed: 05/15/22 05:25> Time Seen by Provider: 05/15/22 05:10 <Edmund Arambula MD - Last Filed: 05/15/22 05:25> History of Present Illness HPI narrative: Patient is a 81-year-old female who presents the emergency department with chief complaint of abdominal discomfort and chest discomfort. Patient states that she has history of cyclic vomiting syndrome and reports that she is also had bladder cancer and has a urostomy. Patient reports that today she started having discomfort in her abdomen and has had nausea and vomiting. Patient states that also for the last several weeks she has been having and uncomfortable feeling in her shoulders. Patient reports that when she had a previous episode of cyclic vomiting she had a stress induced heart attack the patient reports that she feels extremely nauseated and her abdomen is uncomfortable to palpation. The patient reports the primary location of the pain is more of an epigastric location. <Edmund Arambula MD - Last Filed: 05/15/22 05:25> Patient is a 81-year-old female who presents to the emergency department with chief complaint of abdominal discomfort and chest discomfort. Patient states that she has history of cyclic vomiting syndrome and reports that she is also had bladder cancer and has a urostomy. Patient reports that today she started having discomfort in her abdomen and has had nausea and vomiting. Patient states that also for the last several weeks she has been having and uncomfortable feeling in her shoulders. Patient reports that when she had a previous episode of cyclic vomiting she had a stress induced heart attack the patient reports that she feels extremely nauseated and her abdomen is uncomfortable to palpation. The patient reports the primary location of the pain is more of an epigastric location. <Jose Elias Can MD - Last Filed: 05/15/22 17:19> Related Data Home medications: Home Medications Medication Instructions Recorded Confirmed sertraline 50 mg tablet 75 mg PO DAILY 11/23/19 12/11/21 lorazepam 0.5 mg tablet 0.5 mg PO DAILY PRN Anxiety 02/23/21 12/11/21 <Edmund Arambula MD - Last Filed: 05/15/22 05:25> Allergies/adverse reactions: Allergies Allergy/AdvReac Type Severity Reaction Status Date / Time levofloxacin AdvReac Unknown Nausea and Verified 05/15/22 05:21 Vomiting polymyxin B AdvReac Unknown Nausea and Verified 05/15/22 05:21 Vomiting Sulfa (Sulfonamide AdvReac Unknown Nausea and Verified 05/15/22 05:21 Antibiotics) Vomiting trimethoprim AdvReac Unknown Nausea and Verified 05/15/22 05:21 Vomiting amoxicillin [From Augmentin] AdvReac Vomiting Verified 05/15/22 08:28 clavulanic acid AdvReac Vomiting Verified 05/15/22 08:28 [From Augmentin] <Edmund Arambula MD - Last Filed: 05/15/22 05:25> Review of Systems Review of Systems: A 10 system review of systems was completed on the patient and is negative except for what is stated in the HPI. Nursing and ancillary documentation was reviewed. <Edmund Arambula MD - Last Filed: 05/15/22 05:25> [facility], [facility] Past Medical History Medical History: Medical History Cardiomyopathy due to hypertension, without heart failure Chronic insomnia History of basal cell carcinoma History of [place] (myocardial infarction) History of small bowel obstruction HLD (hyperlipidemia) With statin intolerance. Hypertension Personal history of antineoplastic chemotherapy Primary squamous cell carcinoma of urethra Diagnosed in 1999, status post radical cystoscopy with ileal conduit, chemotherapy, and radiation. She is followed by Dr. Zan Alejandro at [facility] [place] [facility] [place]. CT of the abdom
[2022-05-15] MEDS: SODIUM CHLORIDE 0.9% IV 1,000 ML 999 ML IV CONT (05:27)
[2022-05-15] MEDS: PROCHLORPERAZINE EDISYLATE 10 MG/2 ML VIAL IV PUSH (05:28)
[2022-05-15] MEDS: MORPHINE SULFATE (*CRX) 4 MG/ML INJ IV PUSH (05:28)
[2022-05-15 05:37] LABS: Basophils Percent Auto 0.3 % (0.2-1.2); Eosinophils Percent Auto 0.1 % (0-4.4); Hematocrit 46.4 % (37.0-47.0); Hemoglobin 15.7 g/dL (12.0-15.0); Immature Granulocyte Absolute 0.02 K/mm3 (0.00-0.031); Immature Granulocyte Percent A 0.2 % (0-0.5); Lymphocytes Absolute Auto 0.66 K/mm3 (0.9-3.2); Lymphocytes Percent Auto 7.6 % (18.3-44.2); Mean Corpuscular HGB Conc 33.8 g/dl (32-36); Mean Corpuscular Hemoglobin 30.6 pg (26-34); Mean Corpuscular Volume 90.4 fl (80-100); Mean Platelet Volume 10.3 fl (7.4-10.4); Monocytes Absolute Auto 0.4 K/mm3 (0.1-0.6); Monocytes Percent Auto 4.4 % (2.6-8.5); Neutrophils Absolute Auto 7.6 K/mm3 (1.3-6.7); Neutrophils Percent Auto 87.4 % (45.5-73.1); Platelet Count Result 225 k/mm3 (150-375); Red Blood Count 5.13 M/mm3 (4.2-5.4); Red Cell Distribution Width 12.8 % (11.5-14.5); White Blood Count 8.7 K/mm3 (4.5-10.0)
[2022-05-15 05:47] LABS: Alanine Aminotransferase 18 U/L (6-35); Albumin Level 4.6 g/dL (3.5-5.1); Alkaline Phosphatase 148 U/L (38-126); Anion Gap 13 mmol/L (8-16); Aspartate Amino Transferase 25 U/L (14-36); Bilirubin,Total 0.9 mg/dL (0.2-1.3); Blood Urea Nitrogen 21 mg/dL (7-17); Calcium 9.2 mg/dL (8.4-10.2); Carbon Dioxide 19 mmol/L (22-30); Chloride 106 mmol/L (98-107); Estimated CRCL calculation 71 ml/min; Estimated Glomerular Filt Rate > 60; Glucose 178 mg/dL (65-110); INR 0.9; Lactic Acid Reflex 1.6 mmol/L (0.7-2.0); Lipase 81 U/L (23-300); Partial Thromboplastin Time 22.8 SECONDS (22.3-36.8); Potassium 3.7 mmol/L (3.4-5.0); Sodium 138 mmol/L (137-145)
[2022-05-15 05:58] LABS: Troponin I < 0.012 ng/mL (0.000-0.034)
[2022-05-15] MEDS: PANTOPRAZOLE SODIUM IV 40 MG VIAL IV PUSH (08:32)
[2022-05-15 08:58] LABS: Troponin I < 0.012 ng/mL (0.000-0.034)
== END 2022-05-15 09:46 | disposition home or self-care (01) ==
PROVIDERS: Emergency Provider Emergency Medicine; PCP Family Medicine
DX: K56.609 Unspecified intestinal obstruction, unspecified as to partial versus complete obstruction (principal); Z93.6 Other artificial openings of urinary tract status; I11.9 Hypertensive heart disease without heart failure; I43 Cardiomyopathy in diseases classified elsewhere; I25.2 Old myocardial infarction; E78.5 Hyperlipidemia, unspecified; E89.0 Postprocedural hypothyroidism; Z92.21 Personal history of antineoplastic chemotherapy; Z85.51 Personal history of malignant neoplasm of bladder; Z85.828 Personal history of other malignant neoplasm of skin; Z87.891 Personal history of nicotine dependence; K43.5 Parastomal hernia without obstruction or gangrene; K44.9 Diaphragmatic hernia without obstruction or gangrene
CPT/HCPCS: 36415; 71046; 74177; 80053; 83605; 83690; 84484; 85025; 85610; 85730; 93005; 96361; 96374; 96375; 99284; C9113; J0780; J2270; J7030; Q9967

== ENCOUNTER 2022-07-02 10:41 | Emergency (ER) | payer MEDICARE, SELFPAY ==
[2022-07-02 10:58] VITALS: BP 141/73; PULSE 68; RESP 18; TEMP 36.2; O2SAT 99
--- NOTE | 2022-07-02 11:57 | ED.GENADULT ---
HPI - General Adult General Chief complaint: Upper Respiratory Infection Stated complaint: Congestion,Cough,Runny Nose,Throat Irritation History of Present Illness HPI narrative: 81 y/o female. PMHx HTN, Dyslipidemia, CAD, Squamous cell carcinoma. Presents to [facility] today with acute complaints of congestion, semi-productive cough, and body aches for the past 1 week. No BOWMAN, dizziness, focal weakness. No fevers, neck pain. No chest pain, palpitations, hemoptysis. Mild and intermittent dyspnea. Denies GI upset, N/V/D. Related Data Home Medications Medication Instructions Recorded Confirmed sertraline 50 mg tablet 75 mg PO DAILY 11/23/19 07/02/22 lorazepam 0.5 mg tablet 0.5 mg PO DAILY PRN Anxiety 02/23/21 07/02/22 Allergies Allergy/AdvReac Type Severity Reaction Status Date / Time levofloxacin AdvReac Unknown Nausea and Verified 07/02/22 11:10 Vomiting polymyxin B AdvReac Unknown Nausea and Verified 07/02/22 11:10 Vomiting Sulfa (Sulfonamide AdvReac Unknown Nausea and Verified 07/02/22 11:10 Antibiotics) Vomiting trimethoprim AdvReac Unknown Nausea and Verified 07/02/22 11:10 Vomiting amoxicillin [From Augmentin] AdvReac Vomiting Verified 07/02/22 11:10 clavulanic acid AdvReac Vomiting Verified 07/02/22 11:10 [From Augmentin] Review of Systems Review of Systems: Constitutional: Body aches. HENT: Cough, nasal congestion. Remainder of ROS is reviewed: Negative. [facility] Past Medical History Medical History Cardiomyopathy due to hypertension, without heart failure Chronic insomnia History of basal cell carcinoma History of [place] (myocardial infarction) History of small bowel obstruction HLD (hyperlipidemia) With statin intolerance. Hypertension Personal history of antineoplastic chemotherapy Primary squamous cell carcinoma of urethra Diagnosed in 1999, status post radical cystoscopy with ileal conduit, chemotherapy, and radiation. She is followed by Dr. Zan Alejandro at [facility]. CT of the abdomen and pelvis done at annual visit on 06/11/2019 showed no evidence of recurrence or metastatic disease. Transitional cell carcinoma of bladder Diagnosed in 1999, status post radical cystoscopy with ileal conduit, chemotherapy, and radiation. She is followed by Dr. Zan Alejandro at [facility]. CT of the abdomen and pelvis done at annual visit on 06/11/2019 showed no evidence of recurrence or metastatic disease. Surgical History Surgical History H/O exploratory laparotomy Approximately 2007 with adhesiolysis and shona stomal hernia repair History of hernia repair Exploratory laparotomy with extensive adhesiolysis and peristomal hernia repair in October of 2007. History of ileal conduit For squamous cell carcinoma of the urethra and noted positive transitional cell carcinoma of the bladder. Node positive with lymph node dissection during surgery. History of partial thyroidectomy 1976, benign mass. History of total cystectomy For squamous cell carcinoma of the urethra and node positive transitional cell carcinoma of the bladder in 1999. History of urostomy Status post surgical removal of malignant neoplasm of skin Basal cell carcinoma. Family History Family History Father Family history of diabetes mellitus in first degree relative Family history of coronary artery disease Mother Family history of coronary artery disease Cerebrovascular accident Sibling No problems noted. Other Diabetes mellitus Family history of cardiovascular disease Social History Social History Social History: The patient lives in [place], [place]. She designates her as her surrogate decision maker and she wishes to be a full code. She is
== END 2022-07-02 11:40 | disposition home or self-care (01) ==
PROVIDERS: Emergency Provider Nurse Practitioner Adult Health; PCP Family Medicine
DX: U07.1 COVID-19 (principal); Z87.891 Personal history of nicotine dependence; I11.9 Hypertensive heart disease without heart failure; I43 Cardiomyopathy in diseases classified elsewhere; E78.5 Hyperlipidemia, unspecified; Z85.828 Personal history of other malignant neoplasm of skin; Z85.59 Personal history of malignant neoplasm of other urinary tract organ; Z85.51 Personal history of malignant neoplasm of bladder; Z92.21 Personal history of antineoplastic chemotherapy
CPT/HCPCS: 87426; 99213; C9803; G0463

== ENCOUNTER 2022-11-03 09:44 | Emergency (ER) | payer MEDICARE, SELFPAY ==
--- NOTE | ~2022-11-03 | XR_ITS ---
EXAMINATION: XR chest 2V DATE: 11/03/2022 10:06 INDICATION: Nonproductive cough TECHNIQUE: PA and lateral views of the chest are obtained. COMPARISON: 05/15/2022 FINDINGS: The lungs are free of acute opacities. No pleural effusion or pneumothorax. The cardiomedia stinal silhouette is normal. There are bridging osteophytes at multiple levels in the spine, consiste nt with diffuse idiopathic skeletal hyperostosis (DISH). IMPRESSION: 1. No acute cardiopulmonary abnormality. Reviewed, dictated and finalized at location A.
--- NOTE | 2022-11-03 09:50 | ED.URI ---
HPI - URI/Sore Throat General Chief Complaint: Upper Respiratory Infection Stated Complaint: cold symptoms Time Seen by Provider: 11/03/22 09:50 Source: patient Mode of arrival: ambulatory Limitations: no limitations History of Present Illness HPI Narrative: Roxanne is a 82-year-old female patient presenting to the clinic today with complaints of cough, nasal congestion, sinus drainage, and mild shortness breath times 4 days. She reports no known fever or chills. States her symptoms were improving however yesterday she was sitting by a Bon fire and symptoms have worsened so she felt she needed to come in and be evaluated. Denies any chest pain. States she did have a sore throat that has resolved. MD elicited complaint: cough, rhinorrhea and nasal congestion Related Data Home Medications Medication Instructions Recorded Confirmed sertraline 50 mg tablet 75 mg PO DAILY 11/23/19 11/03/22 lorazepam 0.5 mg tablet 0.5 mg PO DAILY PRN Anxiety 02/23/21 11/03/22 fosinopril 10 mg tablet 5 mg PO DAILY 11/03/22 11/03/22 Allergies Allergy/AdvReac Type Severity Reaction Status Date / Time levofloxacin AdvReac Unknown Nausea and Verified 11/03/22 10:15 Vomiting polymyxin B AdvReac Unknown Nausea and Verified 11/03/22 10:15 Vomiting Sulfa (Sulfonamide AdvReac Unknown Nausea and Verified 11/03/22 10:15 Antibiotics) Vomiting trimethoprim AdvReac Unknown Nausea and Verified 11/03/22 10:15 Vomiting amoxicillin [From Augmentin] AdvReac Vomiting Verified 11/03/22 10:15 clavulanic acid AdvReac Vomiting Verified 11/03/22 10:15 [From Augmentin] Review of Systems Review of Systems: Pertinent positives per HPI. Patient denies any fever, chills, rash, headache, visual changes, dizziness, chest pain, palpitations, nausea, vomiting, diarrhea, constipation, abdominal pain, or any urinary issues. [facility] Past Medical History Medical History Cardiomyopathy due to hypertension, without heart failure Chronic insomnia History of basal cell carcinoma History of [place] (myocardial infarction) History of small bowel obstruction HLD (hyperlipidemia) With statin intolerance. Hypertension Personal history of antineoplastic chemotherapy Primary squamous cell carcinoma of urethra Diagnosed in 1999, status post radical cystoscopy with ileal conduit, chemotherapy, and radiation. She is followed by Dr. Zan Alejandro at [facility]. CT of the abdomen and pelvis done at annual visit on 06/11/2019 showed no evidence of recurrence or metastatic disease. Transitional cell carcinoma of bladder Diagnosed in 1999, status post radical cystoscopy with ileal conduit, chemotherapy, and radiation. She is followed by Dr. Zan Alejandro at [facility]. CT of the abdomen and pelvis done at annual visit on 06/11/2019 showed no evidence of recurrence or metastatic disease. Surgical History Surgical History H/O exploratory laparotomy Approximately 2007 with adhesiolysis and shona stomal hernia repair History of hernia repair Exploratory laparotomy with extensive adhesiolysis and peristomal hernia repair in October of 2007. History of ileal conduit For squamous cell carcinoma of the urethra and noted positive transitional cell carcinoma of the bladder. Node positive with lymph node dissection during surgery. History of partial thyroidectomy 1976, benign mass. History of total cystectomy For squamous cell carcinoma of the urethra and node positive transitional cell carcinoma of the bladder in 1999. History of urostomy Status post surgical removal of malignant neoplasm of skin Basal cell carcinoma. Family History Family History Father Family history of diabetes mellitus in first degree relative Family history of coronary artery disease Mother Family history of coronar
[2022-11-03 09:57] VITALS: BP 144/67; PULSE 68; RESP 18; TEMP 36.2; O2SAT 98
== END 2022-11-03 10:27 | disposition home or self-care (01) ==
PROVIDERS: Emergency Provider Nurse Practitioner Family; PCP Family Medicine
DX: J06.9 Acute upper respiratory infection, unspecified (principal); R09.82 Postnasal drip; Z20.822 Contact with and (suspected) exposure to COVID-19; Z87.891 Personal history of nicotine dependence; I11.0 Hypertensive heart disease with heart failure; I50.9 Heart failure, unspecified; I25.2 Old myocardial infarction; E78.5 Hyperlipidemia, unspecified; Z85.828 Personal history of other malignant neoplasm of skin; Z85.51 Personal history of malignant neoplasm of bladder; Z85.59 Personal history of malignant neoplasm of other urinary tract organ
CPT/HCPCS: 71046; 87426; 99213; C9803; G0463

== ENCOUNTER 2023-03-07 09:32 | Outpatient (CLI) | payer MEDICARE, SELFPAY ==
[2023-03-07 10:24] LABS: Hematocrit 40.3 % (37.0-47.0); Hemoglobin 12.7 g/dL (12.0-15.0)
== END 2023-03-07 09:33 | disposition home or self-care (01) ==
LOC: ANHSURGERY 09:52
PROVIDERS: PCP Family Medicine; Visit Provider Obstetrics & Gynecology
DX: N95.0 Postmenopausal bleeding (principal); Z01.818 Encounter for other preprocedural examination
CPT/HCPCS: 36415; 85014; 85018

== ENCOUNTER 2023-03-15 00:53 | Day surgery (SDC) | payer MEDICARE, SELFPAY ==
[2023-03-05 16:00] VITALS: BMI 22.6
--- NOTE | 2023-03-05 16:10 | PC.NURSE ---
PRE-OP INSTRUCTIONS, PLEASE READ CAREFULLY Report to the Outpatient Waiting Room, entrance under the green pavilion located off [facility], at time _0930_ on date _03/15/23_. Planned Procedure Time: _1130_. Time changes happen often and if your time is changed the preop area will call you the afternoon before. - You and your visitor will be asked to self-screen and do not enter if you have any COVID symptoms. - A mask is optional within the hospital at this time. Patients may have clear liquids (water, carbonated beverages, clear teas, apple juice) until 3 hours prior to surgery (0830 AM) with a maximum of 20 ounces. - No food from midnight until time of surgery Take the following medications with a SIP of water the morning of surgery: _LORAZEPAM IF NEEDED_ DO NOT STOP ANY OF YOUR OTHER PRESCRIPTION MEDICATIONS PRIOR TO SURGERY ?EXCEPT THE FOLLOWING Medications to discontinue per ANESTHESIA - _SUPPLEMENTS 3 DAYS PRIOR TO SURGERY, Date to take last dose 03/11/23_ Please no make-up, nail tajik, hairspray, perfume, deodorant, or body powder the day of surgery. No jewelry (including any body piercings) or valuables the day of surgery, leave them at home. Please take a shower or bath the night before, or the morning of, surgery with an antibacterial soap. Wear comfortable, loose fitting clothing. - Jewelry must be removed prior to entering the operating room. Rings and piercings that are not removed may be cut off. - The hospital will not accept responsibility for valuables. - Please leave all valuables, including medications, at home the day of surgery. If you are going home after surgery, a licensed commercial driver must drive you home. - NO public transportation without another adult if you receive anesthesia. - We recommend that an adult stay with you for 24 hours following discharge. - We also recommend that you do not drive, make important decision, drink alcoholic beverages, or take any drugs that were not prescribed by your health care provider for at least 24 hours after your discharge time. Follow any additional instructions given to you from your surgeon. If you or anyone in your household have experienced Covid symptoms in the past week, please notify your surgeon or the nurse liaison at the phone number below for possible testing. Telephone instructions given to _PATIENT_and asked if any additional questions and then verbalized understanding. Patient advised to call surgeon office or pre surgery nurse liaison [phone] if any additional questions.
--- NOTE | 2023-03-13 07:05 | PM.IMHP ---
H&P: HPI History of Present Illness Date/Time: 03/13/23 07:05 Chief Complaint: Postmenopausal bleeding Narrative: This is an 82-year-old female who has had some postmenopausal bleeding. She had an ultrasound which showed a small amount of fluid in the uterus. The lining otherwise looks very thin. However in light of this fluid being present after hysteroscopy dilatation curettage risks and benefits reviewed in great detail [facility] Past Medical History Medical History Cardiomyopathy due to hypertension, without heart failure Chronic insomnia History of basal cell carcinoma History of [place] (myocardial infarction) History of small bowel obstruction HLD (hyperlipidemia) With statin intolerance. Hypertension Personal history of antineoplastic chemotherapy Primary squamous cell carcinoma of urethra Diagnosed in 1999, status post radical cystoscopy with ileal conduit, chemotherapy, and radiation. She is followed by Dr. Zan Alejandro at [facility]. CT of the abdomen and pelvis done at annual visit on 06/11/2019 showed no evidence of recurrence or metastatic disease. Transitional cell carcinoma of bladder Diagnosed in 1999, status post radical cystoscopy with ileal conduit, chemotherapy, and radiation. She is followed by Dr. Zan Alejandro at [facility]. CT of the abdomen and pelvis done at annual visit on 06/11/2019 showed no evidence of recurrence or metastatic disease. Surgical History Surgical History H/O exploratory laparotomy Approximately 2007 with adhesiolysis and shona stomal hernia repair History of hernia repair Exploratory laparotomy with extensive adhesiolysis and peristomal hernia repair in October of 2007. History of ileal conduit For squamous cell carcinoma of the urethra and noted positive transitional cell carcinoma of the bladder. Node positive with lymph node dissection during surgery. History of partial thyroidectomy 1976, benign mass. History of total cystectomy For squamous cell carcinoma of the urethra and node positive transitional cell carcinoma of the bladder in 1999. History of urostomy Status post surgical removal of malignant neoplasm of skin Basal cell carcinoma. Family History Family History Father Family history of diabetes mellitus in first degree relative Family history of coronary artery disease Mother Family history of coronary artery disease Cerebrovascular accident Sibling No problems noted. Other Diabetes mellitus Family history of cardiovascular disease Social History Social History Social History: The patient lives in [place], [place]. She designates her as her surrogate decision maker and she wishes to be a full code. She is a former smoker and quit in 1998 or 1999. Recovering alcoholic, she has abstained since the . No drug abuse. Her primary care provider is Dr. Clarence Whitley. 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
--- NOTE | 2023-03-14 12:00 | WPDANESEPPF ---
Anes - Initial Pre Proc Eval Procedure: Operation Date: 03/15/23 11:30 Proposed Procedures p Hysteroscopy, Dilation and Curettage - Madhu Chamberlain MD Date/Time: 03/14/23 12:00 Surgeon: Madhu Chamberlain MD Pre Op Diagnosis: post menopausal bleeding Patient Data Age: 82 Gender: F Height: 1.68 m Weight: 63.63 kg Allergies Allergy/AdvReac Type Severity Reaction Status Date / Time levofloxacin AdvReac Unknown Nausea and Verified 03/05/23 15:51 Vomiting polymyxin B AdvReac Unknown Nausea and Verified 03/05/23 15:51 Vomiting Sulfa (Sulfonamide AdvReac Unknown Nausea and Verified 03/05/23 15:51 Antibiotics) Vomiting trimethoprim AdvReac Unknown Nausea and Verified 03/05/23 15:51 Vomiting amoxicillin [From Augmentin] AdvReac Vomiting Verified 03/05/23 15:51 clavulanic acid AdvReac Vomiting Verified 03/05/23 15:51 [From Augmentin] Home Medications Medication Instructions Recorded Confirmed Type calcium carbonate 600 mg calcium 600 mg PO DAILY #30 tabs 05/25/19 03/05/23 Rx (1,500 mg) tablet (Calcium) sertraline 50 mg tablet 75 mg PO DAILY 11/23/19 03/05/23 History lorazepam 0.5 mg tablet 0.5 mg PO DAILY PRN Anxiety 02/23/21 03/05/23 History fosinopril 10 mg tablet 5 mg PO DAILY 11/03/22 03/05/23 History biotin 10,000 mcg capsule 10,000 mcg PO DAILY 03/05/23 03/05/23 History cholecalciferol (vitamin D3) 25 25 mcg PO DAILY 03/05/23 03/05/23 History mcg (1,000 unit) capsule coenzyme Q10 100 mg capsule 200 mg PO DAILY 03/05/23 03/05/23 History (CoQ-10) levocarnitine 500 mg capsule 500 mg PO DAILY 03/05/23 03/05/23 History (L-Carnitine) ondansetron 4 mg disintegrating 4 mg PO Q6H PRN Nausea 03/05/23 03/05/23 History tablet prochlorperazine 25 mg rectal 25 mg RECTAL Q12H PRN Nausea 03/05/23 03/05/23 History suppository prochlorperazine maleate 10 mg 10 mg PO Q6H PRN Nausea 03/05/23 03/05/23 History tablet zolpidem 10 mg tablet (Ambien) See Rx Instructions .Route 03/05/23 03/05/23 History .COMPLEX PRN insomnia hydrocodone 5 mg-acetaminophen 325 1 tablet PO Q4H PRN pain #20 tabs 03/15/23 Rx mg tablet Patient hx anesthesia problems: none Family hx anesthesia problems: none Results Review: All pre-operative results and documents have been reviewed as part of the pre-operative evaluation. [facility] Past Medical History Medical History Cardiomyopathy due to hypertension, without heart failure Chronic insomnia History of basal cell carcinoma History of [place] (myocardial infarction) History of small bowel obstruction HLD (hyperlipidemia) With statin intolerance. Hypertension Personal history of antineoplastic chemotherapy Primary squamous cell carcinoma of urethra Diagnosed in 1999, status post radical cystoscopy with ileal conduit, chemotherapy, and radiation. She is followed by Dr. Zan Alejandro at [facility]. CT of the abdomen and pelvis done at annual visit on 06/11/2019 showed no evidence of recurrence or metastatic disease. Transitional cell carcinoma of bladder Diagnosed in 1999, status post radical cystoscopy with ileal conduit, chemotherapy, and radiation. She is followed by Dr. Zan Alejandro at [facility]. CT of the abdomen and pelvis done at annual visit on 06/11/2019 showed no evidence of recurrence or metastatic disease. Surgical History Surgical History H/O exploratory laparotomy Approximately 2007 with adhesiolysis and shona stomal hernia repair History of hernia repair Exploratory laparotomy with extensive adhesiolysis and peristomal hernia repair in October of 2007. History of ileal conduit For squamous cell carcinoma of the urethra and noted positive transitional cell carcinoma of the bladder. Node positive with lymph node dissection during surgery. History of partial thyroidectomy 1976, benign mass. Hist
--- NOTE | 2023-03-15 06:31 | WPDHPUPDATE1 ---
History and Physical Update Update Date/Time: 03/15/23 06:31 History and Physical has been reviewed, including an updated exam of the patient. There are NO changes in the patient's condition. Risks, benefits, and alternatives have been discussed and questions answered. Patient agrees to proceed with procedure.
[2023-03-15 09:37] VITALS: BP 133/66; PULSE 66; RESP 18; TEMP 36.2; O2SAT 100
[2023-03-15] MEDS: LACTATED RINGERS 1,000 ML 30 ML IV CONT (10:08)
[2023-03-15] MEDS: ACETAMINOPHEN 500 MG TABLET 1000 MG PO (10:08)
[2023-03-15] MEDS: LIDOCAINE HCL 1% LOCAL INJ 10 ML VIAL INFILTRATE (11:26)
--- NOTE | 2023-03-15 11:31 | W.PM.PROC2 ---
Procedure Note - Detailed Date of Procedure 03/15/23 Pre-op Diagnosis post menopausal bleeding Post-op Diagnosis Same Procedure Performed Hysteroscopy/dilatation curettage Surgeon Madhu Chamberlain MD Anesthesia MAC and Local Indications This is an 82-year-old female question postmenopausal bleeding Findings Uterus was retroverted and 8cm in depth thin benign atrophic endometrium seen expected of this age Description of Procedure Patient was prepped draped in the sterile fashion placed in dorsal lithotomy position. Under excellent IV sedation weighted speculum placed posterior fornix vagina. Anterior lip of the cervix grasped with a single-tooth tenaculum. 2.5cc 1% xylocaine anesthesia placed at 2, 4, 8, 10:00 a.m. of the cervix. Uterus retroverted sounded to just under 8cm. Serial dilatation with fragmented dilators performed followed by passage of the 5mm visualizing hysteroscope using normal saline as visualizing medium. The 8 and min endometrium appeared quite benign and atrophic as expected for a woman of this age. Each fallopian tube os could be seen. No abnormalities were seen. Then instrument was withdrawn and the uterus scraped over the entire 300cc degrees removing minimal to no tissue. The instruments removed the patient was awakened went to recovery in satisfactory condition. All sponge, needle, instrument counts were correct. There were no immediate complications Estimated Blood Loss 5 Drains No Packing No Pathology Yes Complications No immediate complications Condition Stable Disposition PACU
[2023-03-15 11:32] VITALS: BP 94/43; PULSE 51; RESP 14; O2SAT 98
[2023-03-15] MEDS: ONDANSETRON INJ 4 MG/2 ML VIAL IV PUSH (11:59)
[2023-03-15 12:00] VITALS: BP 124/73; PULSE 70; RESP 16; O2SAT 98
[2023-03-15 12:30] VITALS: BP 157/68; PULSE 50; RESP 16
== END 2023-03-15 12:50 | disposition home or self-care (01) ==
PROVIDERS: PCP Family Medicine; Visit Provider Obstetrics & Gynecology
PROC: 0U5B8ZZ Destruction of Endometrium, Via Natural or Artificial Opening Endoscopic (ICD-10-PCS; CPT 58563; principal; 2023-03-15 11:30)
DX: N95.0 Postmenopausal bleeding (principal); I42.9 Cardiomyopathy, unspecified; I10 Essential (primary) hypertension; E78.5 Hyperlipidemia, unspecified; I25.2 Old myocardial infarction; Z85.59 Personal history of malignant neoplasm of other urinary tract organ; Z85.51 Personal history of malignant neoplasm of bladder; Z92.21 Personal history of antineoplastic chemotherapy; Z92.3 Personal history of irradiation; Z87.891 Personal history of nicotine dependence
CPT/HCPCS: 58558; 36415; 85014; 85018; 88305; A9270; J2250; J2405; J3010; J7120

== ENCOUNTER 2023-04-04 10:10 | Outpatient (CLI) | payer MEDICARE, SELFPAY ==
[2023-04-04 11:07] LABS: Influenza A QL RT-PCR Negative (Negative); Influenza B QL RT-PCR Negative (Negative); SARS-CoV-2 RNA PCR Negative (Negative)
== END 2023-04-04 10:11 | disposition home or self-care (01) ==
PROVIDERS: PCP Family Medicine; Visit Provider Physician Assistant
DX: R50.9 Fever, unspecified (principal)
CPT/HCPCS: 87636

== ENCOUNTER 2023-04-04 16:51 | Outpatient (CLI) | payer MEDICARE, SELFPAY ==
--- NOTE | ~2023-04-04 | XR_ITS ---
EXAMINATION: XR hip RT 2V w AP pelvis INDICATION: Right hip pain TECHNIQUE: AP view of the pelvis and two views of the right hip are obtained. COMPARISON: CT, 05/15/2022 FINDINGS: Bone alignment is normal. There is no fracture. There is mild osteoarthritis of the hips. A chronic sclerotic lesion of the left femoral neck likely reflects an enchondroma. Surgical changes a re noted in the pelvis. IMPRESSION: 1. No acute osseous abnormality. Reviewed, dictated and finalized at location F.
== END 2023-04-04 16:52 | disposition home or self-care (01) ==
LOC: ANHIMG 16:54
PROVIDERS: PCP Family Medicine; Visit Provider Physician Assistant
DX: M25.551 Pain in right hip (principal)
CPT/HCPCS: 73502; 87636

== ENCOUNTER 2023-07-26 10:42 | Outpatient (CLI) | payer MEDICARE, SELFPAY ==
--- NOTE | ~2023-07-26 | XR_ITS ---
XR lumbar spine 2-3V DATE: 07/26/2023 11:08 INDICATION: Low back and left hip pain for 6 weeks. No known injury. TECHNIQUE: AP, lateral, coned lateral lumbosacral views COMPARISON: None FINDINGS: There is diffuse osteopenia. There is mild to moderate levoscoliosis of thoracolumbar spine. There is a transitional lumbosacral vertebra. There is severe degenerative change at the apophyseal joints in the lower lumbar and lumbosacral area . There is associated grade 2 anterolisthesis at the articulation between the last functional lumbar vertebra and the transitional vertebra. Moderate to moderately severe degenerative disc disease is noted at this level as well. There is mild to moderate degenerative disc disease at the remaining lumbar interspaces. No fracture or bone destruction is detected. The included lower thoracic and lumbar pedicles are inta ct. The sacroiliac joints appear normal. Surgical clips overlie both sides of the pelvis. IMPRESSION: Osteopenia Levoscoliosis Transitional lumbosacral vertebra Grade 2 anterolisthesis and moderately severe degenerative disc disease at articulation between last functional lumbar vertebra and transitional lumbosacral vertebra Mild to moderate degenerative disc disease at the remaining lumbar interspaces Reviewed, dictated and finalized at location B. NG SUPERVISOR IMPRESSION: Osteopenia Levoscoliosis Transitional lumbosacral vertebra Grade 2 anterolisthesis and moderately severe degenerative disc disease at sara culation between last functional lumbar vertebra and transitional lumbosacral v ertebra Mild to moderate degenerative disc disease at the remaining lumbar interspaces
--- NOTE | ~2023-07-26 | XR_ITS ---
AP and lateral views of the left hip Clinical history: Pain Findings: No acute fracture or dislocation is seen. Osseous alignment is anatomic. Small enchondroma present at the intertrochanteric region of the proximal femur. Bilateral hip and SI joint spaces are preserved. Soft tissues are unremarkable. Impression: No acute abnormality. Small enchondroma at the proximal femur, as above. Reviewed, dictated and finalized at location . LEUM PRINTER Impression: No acute abnormality. Small enchondroma at the proximal femur, as above.
== END 2023-07-26 10:43 | disposition home or self-care (01) ==
PROVIDERS: PCP Family Medicine; Visit Provider Chiropractor Rehabilitation
DX: M85.88 Other specified disorders of bone density and structure, other site (principal); M51.36 Other intervertebral disc degeneration, lumbar region; M47.27 Other spondylosis with radiculopathy, lumbosacral region; M47.26 Other spondylosis with radiculopathy, lumbar region; M99.03 Segmental and somatic dysfunction of lumbar region; M99.04 Segmental and somatic dysfunction of sacral region
CPT/HCPCS: 72100; 73502

== ENCOUNTER 2024-02-13 02:28 | Emergency (ER) | payer MEDICARE, SELFPAY ==
--- NOTE | ~2024-02-13 | CT_ITS ---
EXAMINATION: CT abdomen pelvis w con DATE: 02/13/2024 04:17 INDICATION: Vomiting. Tenderness to palpation in the lower quadrants. TECHNIQUE: Computed tomography (CT) of the abdomen and pelvis was performed with 100 mL Omnipaque-350 intravenous contrast. Automated exposure control and iterative reconstruction technique were employe d. The dose-length product was 330.32 mGy-cm. COMPARISON: None FINDINGS: Mild dependent atelectasis/scarring along the medial left lower lobe with additional mild dependent a telectasis in bilateral lower lobes. Heart size is normal. No pericardial or pleural effusion. Liver, gallbladder, spleen, pancreas and bilateral adrenal glands are normal. Unchanged small region of cor tical scarring in both kidneys likely sequela prior infection. No hydronephrosis. Recurrent small bowel obstruction with identical transition point with pseudo feces in the anterior i nferior right hemipelvis. Upstream there is dilation of bowel along which are a few additional likely unchanged transition point consistent with chronic strictures. Status post cystectomy with diverting loop ileostomy in the right lower quadrant with unchanged parastomal hernia of short segment of the distal small bowel at the site of the anastomosis with the ileal conduit harvest. This does not appea r obstructing with decompression of the bowel between this point and the previously noted final more proximal obstructing transition point. There is uniform mucosal enhancement of the small bowel. Colon and appendix are unremarkable. Uterus and bilateral adnexa are unremarkable. Surgical clips in the pelvis consistent with likely prior lymph node dissection. No free intraperitoneal gas or fluid. No pathologically enlarged abdominal or pelvic lymphadenopathy. 5 mm anterolisthesis of L4 on a trans itional L5 segment with severe associated bilateral facet osteoarthritis. Tarlov cysts with chronic r emodeling of a few of the cervical neural foramina. IMPRESSION: 1. Recurrent small bowel obstruction with identical transition point at the anteroinferior right guadalupe pelvis and a few additional likely cystic structures in the more proximal small bowel. 2. Postoperative changes of cystectomy with right lower quadrant ileal conduit formation. Associated parastomal hernia containing a short segment of the more distal decompressed distal ileum. Reviewed, dictated and finalized at location A. IMPRESSION: 1. Recurrent small bowel obstruction with identical transition point at the ant eroinferior right hemipelvis and a few additional likely cystic structures in t he more proximal small bowel. 2. Postoperative changes of cystectomy with right lower quadrant ileal conduit formation. Associated parastomal hernia containing a short segment of the more distal decompressed distal ileum.
--- NOTE | ~2024-02-13 | XR_ITS ---
EXAMINATION: XR chest 2V DATE: 02/13/2024 03:06 INDICATION: Chest pain and shortness of breath TECHNIQUE: frontal and lateral views of the chest were obtained. COMPARISON: Chest radiograph dated 11/03/2022 FINDINGS: The lungs are clear with no focal airspace opacities, pulmonary edema, pleural effusion or pneumothor ax. The cardiomediastinal silhouette is normal. Prominent costochondral calcifications project over t he lower lungs. IMPRESSION: 1. No acute cardiopulmonary disease. Reviewed, dictated and finalized at location A.
--- NOTE | 2024-02-13 02:29 | ECG_ITS ---
Test Date: 2024-02-13 02:38:11 Measurements Intervals Reading Rate: 72 P: 85 OH: 147 QRS: -15 QRSD: 82 T: 48 QT: 452 QTc: 497 Interpretive Statements SINUS RHYTHM DELAYED PRECORDIAL R/S TRANSITION PROLONGED QT INTERVAL BASELINE ARTIFACT- II, III, AVR, AVL, AVF, V1, V3-V6 ABNORMAL ECG No previous ECG available for comparison Electronically Signed On 02-13-2024 06:09:42 CDT by Maurice Bello D.O.
[2024-02-13 02:32] VITALS: BP 155/78; PULSE 74; PULSE 75; RESP 30; TEMP 37.1; O2SAT 99
[2024-02-13 02:51] LABS: Basophils Percent Auto 0.3 % (0.2-1.2); Eosinophils Percent Auto 0.6 % (0-4.4); Hematocrit 43.4 % (37.0-47.0); Hemoglobin 14.7 g/dL (12.0-15.0); Immature Granulocyte Absolute 0.02 K/mm3 (0.00-0.031); Immature Granulocyte Percent A 0.3 % (0-0.5); Lymphocytes Absolute Auto 0.85 K/mm3 (0.9-3.2); Lymphocytes Percent Auto 13.3 % (18.3-44.2); Mean Corpuscular HGB Conc 33.9 g/dl (32-36); Mean Corpuscular Hemoglobin 30.9 pg (26-34); Mean Corpuscular Volume 91.4 fl (80-100); Mean Platelet Volume 10.7 fl (7.4-10.4); Monocytes Absolute Auto 0.4 K/mm3 (0.1-0.6); Monocytes Percent Auto 6.8 % (2.6-8.5); Neutrophils Percent Auto 78.7 % (45.5-73.1); Platelet Count Result 180 k/mm3 (150-375); Red Blood Count 4.75 M/mm3 (4.2-5.4); Red Cell Distribution Width 12.6 % (11.5-14.5); White Blood Count 6.4 K/mm3 (4.5-10.0)
[2024-02-13] MEDS: ASPIRIN 81 MG CHEWABLE TABLET 324 MG PO (02:51)
[2024-02-13 02:59] LABS: INR 0.9; Prothrombin Time 12.7 Seconds (11.1-14.7)
[2024-02-13 03:00] LABS: Alanine Aminotransferase 14 U/L (6-35); Albumin Level 4.7 g/dL (3.5-5.1); Alkaline Phosphatase 118 U/L (38-126); Anion Gap 12 mmol/L (4-12); Aspartate Amino Transferase 23 U/L (14-36); Bilirubin,Total 0.6 mg/dL (0.2-1.3); Blood Urea Nitrogen 24 mg/dL (7-17); Calcium 9.7 mg/dL (8.4-10.2); Carbon Dioxide 23 mmol/L (22-30); Chloride 101 mmol/L (98-107); Estimated CRCL calculation 51 ml/min; Estimated Glomerular Filt Rate > 60; Glucose 158 mg/dL (65-110); Lipase 105 U/L (23-300); Partial Thromboplastin Time 23.6 Seconds (22.3-36.8); Potassium 4.1 mmol/L (3.4-5.0); Sodium 136 mmol/L (137-145)
[2024-02-13 03:12] LABS: Troponin I < 0.012 ng/mL (0.000-0.034)
--- NOTE | 2024-02-13 03:33 | ED.CHESTPAIN ---
HPI - Chest Pain General Chief Complaint: Chest Pain Stated Complaint: chst pain Time Seen by Provider: 02/13/24 03:14 Source: patient and family Mode of arrival: ambulatory Limitations: no limitations History of Present Illness HPI narrative: Patient (goes by [place] ) presents with complaint of chest pain with onset occurring approximately 2100 hours. Initially there was some shortness of breath but this resolved. She has a history of cyclic vomiting syndrome as well as a history of cancer and small intestine partial resection after a blockage. She also has a urostomy/ileal conduit. She has had several bowel movements today. She denies any fevers. Her chest pain radiates into her abdomen. She continues to pass flatus. Her last bowel movement was this afternoon. She has been dry heaving and vomiting which then led to the chest pain. Aspirin that been given to her helped. At home when she gets her abdominal pain and vomiting she uses Compazine and Zofran but also has rectal Phenergan. Initially her pain was 9/10 in severity but then improved to 4/10 at present. She has a history of myocardial infarction for which she went to [place] but no stents were placed. She denies marijuana use. She did have a recent CT scan of her coronary arteries. 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 Walton Related Data Home Medications Medication Instructions Recorded Confirmed lorazepam 0.5 mg tablet 0.5 mg PO DAILY PRN Anxiety 02/23/21 12/23/23 biotin 10,000 mcg capsule 10,000 mcg PO DAILY 03/05/23 12/23/23 cholecalciferol (vitamin D3) 25 25 mcg PO DAILY 03/05/23 12/23/23 mcg (1,000 unit) capsule coenzyme Q10 100 mg capsule 200 mg PO DAILY 03/05/23 12/23/23 (CoQ-10) levocarnitine 500 mg capsule 500 mg PO DAILY 03/05/23 12/23/23 (L-Carnitine) ondansetron 4 mg disintegrating 4 mg PO Q6H PRN Nausea 03/05/23 12/23/23 tablet prochlorperazine 25 mg rectal 25 mg RECTAL Q12H PRN Nausea 03/05/23 12/23/23 suppository prochlorperazine maleate 10 mg 10 mg PO Q6H PRN Nausea 03/05/23 12/23/23 tablet zolpidem 10 mg tablet (Ambien) See Rx Instructions .Route 03/05/23 12/23/23 .COMPLEX PRN insomnia Allergies Allergy/AdvReac Type Severity Reaction Status Date / Time levofloxacin AdvReac Unknown Nausea and Verified 02/13/24 02:28 Vomiting polymyxin B AdvReac Unknown Nausea and Verified 02/13/24 02:28 Vomiting Sulfa (Sulfonamide AdvReac Unknown Nausea and Verified 02/13/24 02:28 Antibiotics) Vomiting trimethoprim AdvReac Unknown Nausea and Verified 02/13/24 02:28 Vomiting amoxicillin [From Augmentin] AdvReac Vomiting Verified 02/13/24 02:28 clavulanic acid AdvReac Vomiting Verified 02/13/24 02:28 [From Augmentin] [facility], [facility] Past Medical History Medical History Cardiomyopathy due to hypertension, without heart failure Chronic insomnia History of basal cell carcinoma History of [place] (myocardial infarction) History of small bowel obstruction HLD (hyperlipidemia) With statin intolerance. Hypertension Personal history of antineoplastic chemotherapy Primary squamous cell carcinoma of urethra Diagnosed in 1999, status post radical cystoscopy with ileal conduit, chemotherapy, and radiation. She is followed by Dr. Zan Alejandro at [facility]. CT of the abdomen and pelvis done at annual visit on 06/11/2019 showed no evidence of recurrence or metastatic disease. Transitional cell carcinoma of bladder Diagnosed in 1999, status post radical cystoscopy with ileal conduit, chemotherapy, and radiation. She is followed by Dr. Zan Alejandro at [facility]. CT of the abdomen and pelvis done at annual visit on 06/11/2019 showed no evidence of recurrence or metastatic disease. Surgical History Surgical History H/O exploratory laparotomy Approximately 2007 with adhesiolysis and p
[2024-02-13 03:37] VITALS: BP 101/83; PULSE 77; RESP 18; O2SAT 98
[2024-02-13] MEDS: SCOPOLAMINE 1 MG PATCH 1 PATCH TRANSDERM (04:04)
[2024-02-13] MEDS: MORPHINE SULFATE (*CRX) 4 MG/ML INJ IV PUSH (04:04)
[2024-02-13] MEDS: SODIUM CHLORIDE 0.9% IV 1,000 ML 999 ML IV CONT (04:04)
[2024-02-13 04:20] LABS: Magnesium 2.1 mg/dL (1.6-2.3)
[2024-02-13 04:21] LABS: Lactic Acid Reflex 1.1 mmol/L (0.7-2.0)
[2024-02-13 04:43] LABS: Influenza A QL RT-PCR Negative (Negative); Influenza B QL RT-PCR Negative (Negative); RSV RNA, RT-PCR Negative (Negative); SARS-CoV-2 RNA PCR Negative (Negative)
[2024-02-13 06:04] VITALS: BP 159/99; PULSE 58; RESP 18; O2SAT 98
[2024-02-13 06:33] LABS: Troponin I < 0.012 ng/mL (0.000-0.034)
[2024-02-13 07:28] VITALS: BP 123/88; PULSE 72; RESP 16; TEMP 36.4; O2SAT 98
[2024-02-13] MEDS: LORazepam INJ (*CRX) 2 MG/ML VIAL 0.5 MG IV PUSH (08:01)
[2024-02-13] MEDS: ONDANSETRON INJ 4 MG/2 ML VIAL IV PUSH (08:02)
[2024-02-13 08:12] VITALS: BP 123/68; PULSE 69; RESP 16; TEMP 36.6; O2SAT 100
== END 2024-02-13 08:15 | disposition home or self-care (01) ==
PROVIDERS: Emergency Provider Student in an Organized Health Care Education/Training Program; PCP Family Medicine
DX: I45.81 Long QT syndrome (principal); R73.9 Hyperglycemia, unspecified; R11.15 Cyclical vomiting syndrome unrelated to migraine; K56.600 Partial intestinal obstruction, unspecified as to cause; R07.9 Chest pain, unspecified; E78.5 Hyperlipidemia, unspecified; I25.2 Old myocardial infarction; I10 Essential (primary) hypertension; Z87.891 Personal history of nicotine dependence; Z85.828 Personal history of other malignant neoplasm of skin; Z20.822 Contact with and (suspected) exposure to COVID-19
CPT/HCPCS: 36415; 71046; 74177; 80053; 83605; 83690; 83735; 84484; 85025; 85610; 85730; 87637; 93005; 96361; 96374; 96375; 99284; A9270; J2060; J2270; J2405; J7030; Q9967

== ENCOUNTER 2024-04-19 06:30 | Emergency (ER) | payer MEDICARE, SELFPAY ==
[2024-04-19 06:36] VITALS: BP 126/66; PULSE 70; RESP 15; TEMP 36.6; O2SAT 98
--- NOTE | 2024-04-19 08:53 | PC.NURSE ---
Patient male visitor to desk stating she (patient) feels a little better and has medicine at home to take .
== END 2024-04-19 09:01 | disposition left against medical advice (07) ==
LOC: ANHED 08:57
PROVIDERS: PCP Family Medicine
DX: R11.2 Nausea with vomiting, unspecified (principal)
CPT/HCPCS: 99199

== ENCOUNTER 2024-08-27 09:52 | Emergency (ER) | payer MEDICARE, SELFPAY ==
--- NOTE | 2024-08-27 09:54 | ED.URI ---
HPI - URI/Sore Throat General Chief Complaint: Upper Respiratory Infection Stated Complaint: flu symptoms Time Seen by Provider: 08/27/24 09:54 Source: patient Mode of arrival: ambulatory Limitations: no limitations History of Present Illness HPI Narrative: Patient is an 83-year-old female who presents with congestion and runny nose for 1 week. Patient states cough started this morning that she has not had previously. Patient has taken Coricidin, vitamin-C, Benadryl and Tylenol for symptoms. Patient denies any fever, chills, shortness of breath, nausea, vomiting, diarrhea. Patient states her cough was worse 1st thing in the morning. Related Data Home Medications ?Medication ?Instructions ?Recorded ?Confirmed ?Last Taken ?Type lorazepam 0.5 mg tablet 0.5 mg PO DAILY PRN Anxiety 02/23/21 06/22/24 02/22/21 21:00 History biotin 10,000 mcg capsule 10,000 mcg PO DAILY 03/05/23 06/22/24 Unknown History cholecalciferol (vitamin D3) 25 25 mcg PO DAILY 03/05/23 06/22/24 Unknown History mcg (1,000 unit) capsule coenzyme Q10 100 mg capsule 200 mg PO DAILY 03/05/23 06/22/24 Unknown History (CoQ-10) levocarnitine 500 mg capsule 500 mg PO DAILY 03/05/23 06/22/24 Unknown History (L-Carnitine) prochlorperazine 25 mg rectal 25 mg RECTAL Q12H PRN Nausea 03/05/23 06/22/24 Unknown History suppository prochlorperazine maleate 10 mg 10 mg PO Q6H PRN Nausea 03/05/23 06/22/24 Unknown History tablet zolpidem 10 mg tablet (Ambien) See Rx Instructions .Route 03/05/23 06/22/24 Unknown History .COMPLEX PRN insomnia Allergies Allergy/AdvReac Type Severity Reaction Status Date / Time levofloxacin AdvReac Unknown Nausea and Verified 08/27/24 10:00 Vomiting polymyxin B AdvReac Unknown Nausea and Verified 08/27/24 10:00 Vomiting Sulfa (Sulfonamide AdvReac Unknown Nausea and Verified 08/27/24 10:00 Antibiotics) Vomiting trimethoprim AdvReac Unknown Nausea and Verified 08/27/24 10:00 Vomiting amoxicillin (From Augmentin) AdvReac Vomiting Verified 08/27/24 10:00 clavulanic acid (From AdvReac Vomiting Verified 08/27/24 10:00 Augmentin) Review of Systems Review of Systems: All systems reviewed & are unremarkable except as noted in HPI and below Constitutional: Constitutional: Reports body ache(s), Denies chills, Denies fatigue, Denies fever(s), Denies headache(s), Denies malaise and Denies weakness Eyes: Eyes: Denies blurry vision, Denies itchy eyes and Denies loss of vision ENT: Denies otalgia, Denies headache(s), Reports nasal congestion, Denies sinus pain and Denies sore throat Cardiovascular: Cardiovascular: Denies chest pain, Denies irregular heart rhythm and Denies dyspnea Respiratory: Respiratory: Reports cough and Denies dyspnea Gastrointestinal: Gastrointestinal: Denies abdominal pain, Denies diarrhea, Denies nausea and Denies vomiting Musculoskeletal: Musculoskeletal: Denies back pain, Denies myalgias and Denies arthralgias Integumentary/Breasts: Skin/Breast: Denies pruritus and Denies rash Neurologic: Denies headache(s), Denies loss of vision and Denies weakness Psychiatric: Psychiatric: Reports no additional psychiatric complaints Endocrine: Endocrine: Denies fatigue Allergic/Immunologic: Allergic/Immunologic: Denies itchy eyes PMFSH Past Medical History Medical History History of [place] (myocardial infarction) Personal history of antineoplastic chemotherapy History of small bowel obstruction History of basal cell carcinoma Transitional cell carcinoma of bladder Diagnosed in 1999, status post radical cystoscopy with ileal conduit, chemotherapy, and radiation. She is followed by Dr. Zan Alejandro at [facility]. CT of the abdomen and pelvis done at annual visit on 06/11/2019 showed no evidence of recurrence or metastatic disease. Primary squamous cell carcinoma of urethra Diagnosed in 1999, status post radical cystoscopy with ileal conduit, chemotherapy, and radiation. She is followed by Dr. Zan Alejandro at [facility]. CT of the abdomen and pelvis done at annual visit on 06/11/2019 showed no evidence of recurrence or metastatic disease. Hypertension Chronic insomnia HLD (hyperlipidemia) With statin intolerance. Cardiomyopathy due to hypertension, without heart failure Surgical History Surgical History History of urostomy H/O exploratory laparotomy Approximately 2007 with adhesiolysis and shona stomal hernia repair History of partial thyroidectomy 1976, benign mass. History of hernia repair Exploratory laparotomy with extensive adhesiolysis and peristomal hernia repair in October of 2007. History of total cystectomy For squamous cell carcinoma of the urethra and node positive transitional cell carcinoma of the bladder in 1999. Status post surgical removal of malignant neoplasm of skin Basal cell carcinoma. History of ileal conduit For squamous cell carcinoma of the urethra and noted positive transitional cell carcinoma of the bladder. Node positive with lymph node dissection during surgery. Family History Family History Father Family history of diabetes mellitus in first degree relative Family history of coronary artery disease Mother Family history of coronary artery disease Cerebrovascular accident Sibling No problems noted. Other Diabetes mellitus Family history of cardiovascular disease Social History Social History Social History: The patient lives in [place], [place]. She designates her as her surrogate decision maker and she wishes to be a full code. She is a former smoker and quit in 1998 or 1999. Recovering alcoholic, she has abstained since the . No drug abuse. Her primary care provider is Dr. Clarence Whitley. 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 There is no relevant family history pertinent to the presenting complaint. Exam Const: General: cooperative, healthy appearing, comfortable, no acute distress and well nourished Nutritional Appearance: well nourished Orientation/consciousness: patient oriented x3 Limitations: no limitations HENMT: Head: normal to inspection, normocephalic and atraumatic Ears: hearing grossly normal bilaterally, external ears normal, TM's normal bilaterally, EAC's normal and no periauricular adenopathy Face/Nose/Sinus: Normal external nose present, Abnormal mucous membranes and turbinates present erythematous bilateral and diffuse, normal facial exam, sinuses nontender and face symmetric Face and sinus: normal facial exam, sinuses nontender and face symmetric Mouth: Yes Normal oral and palatal mucosa present, Yes lip normal, Yes tongue normal, Yes Normal salivary glands and ducts present, Yes oropharynx normal and Yes moist mucous membranes Teeth and gingiva: dentition normal Throat: posterior oropharynx normal, tonsils normal and uvula midline Eyes: General: appearance normal, both eyes and all related structures Alignment and Position: alignment normal and position normal Periorbital: periorbital findings normal Eyelids: eyelids normal Pupils: Equal, round and reactive pupils present Neck: Neck: normal visual inspection, full ROM, no lymphadenopathy and supple Chest: Chest palpation & inspection: normal inspection of the chest and normal palpation of entire chest wall Resp: Effort & Inspection: normal respiratory effort and able to speak in complete sentences Auscultation: clear to auscultation bilaterally, no crackles, no rales, no rhonchi and no wheezes Cardio: Rate: regular rate Rhythm: regular rhythm Heart sounds: S1 normal heart sound present and S2 normal heart sound present GI: Inspection: normal to inspection Skin: General skin exam: normal color and no rashes or lesions noted Neuro: General: patient oriented x3 and moves all extremities Cranial nerves: Yes Equal, round and reactive pupils present Speech: normal speech Gait exam (Neuro): Normal gait present Extrem: General: normal to inspection, full ROM and no edema Psych: Appearance: grossly normal and well kempt Mental Status: mental status grossly normal Speech and movement: Normal speech and movement present Affect: normal affect Attitude: cooperative Thought process: Normal thought process present Course Course Emergency Course: Discharge instructions reviewed with patient, as well as provided in writing per nursing staff. The instructions also include specific and strict return/GO TO THE ER as well as f/u information. All questions have been answered, and the patient deny any further questions with discharge and discharge plan. Portions of this record may have been created with voice recognition software Level of Care: Express Care Visit Vital Signs Vital signs: Reviewed MDM - URI/Sore Throat MDM Narrative Medical decision making narrative: Pt well hydrated appearing, in no respiratory distress, hemodynamically stable. Recommend supportive care. The patient is stable at time of discharge the clinical impression was discussed and the patient was given the opportunity to ask questions, which were addressed as completely as possible given the information available at present. Anticipatory guidance and return to care precautions were discussed and the importance of primary care follow-up was stressed and encouraged. The patient voiced understanding of the plan, indications to return, and the need for follow-up. Differential diagnosis considered: Perry virus, strep pharyngitis, allergic rhinitis, upper respiratory tract infection, sinusitis, rhinosinusitis, nasopharyngitis. viral pharyngitis, otitis media, otitis externa, otitis effusion, foreign body, cerumen impaction, viral syndrome, and influenza.? Exam findings show no acute concerns or changes; patient is non-toxic appearing and is in no distress.? Patient is appropriate for outpatient treatment and follow-up.? Medical Records Attestation: I reviewed the patient's medical records. Discharge Plan Discharge Clinical Impression: Upper respiratory infection with cough and congestion Patient Disposition: Home, Self-Care Condition: Stable Instructions: Upper Respiratory Infection (ED) Additional Instructions: Use Tessalon Perles as needed for cough Your symptoms are likely due to a viral illness, which is not treated with antibiotics. Viral symptoms can be present for up to a few weeks. -Alternate Tylenol and Motrin per package directions for fever or pain. -Antihistamine medication such as Benadryl/Zyrtec at night and Claritin/Anette during the day can help improve symptoms. -Use Flonase twice a day for 5 days then daily to help reduce the inflammation and dry up your sinuses. -You can also use Coricidin. Be sure to drink plenty of water with these medications at least 8 ounces with every dose and it is important to drink 8 to 10 glasses of water per day. Water is a natural decongestant -Eat and drink things that are easy to swallow, like tea or soup, or popsicles. -Oral rinses such as: Salt water gargles and/or may use topical anesthetic (eg. Chloraseptic spray) or lozenges to relieve dryness or throat pain). -Frequent hand washing or hand advanced quality engineer is one of the best ways to prevent spread of infection. -Using a vaporizer or humidifier at night will also help thin secretions and help with coughing up phlegm. -Follow up with primary care provider in 3-5 days if condition is not improving - For new or worsening symptoms go directly to the nearest ER Patient Language: Guyanese Prescriptions: New benzonatate 100 mg capsule 100 mg PO BID PRN (Reason: cough) Qty: 14 0RF No Action calcium carbonate [Calcium 600] 600 mg calcium (1,500 mg) tablet 600 mg PO DAILY Qty: 30 0RF nystatin-triamcinolone 100,000-0.1 unit/g-% cream 1 applic topical BID Qty: 60 1RF prochlorperazine maleate 10 mg Tablet 10 mg PO Q6H PRN (Reason: Nausea) prochlorperazine 25 mg Suppository 25 mg RECTAL Q12H PRN (Reason: Nausea) biotin 10,000 mcg Capsule 10,000 mcg PO DAILY cholecalciferol (vitamin D3) 25 mcg (1,000 unit) Capsule 25 mcg PO DAILY coenzyme Q10 [CoQ-10] 100 mg Capsule 200 mg PO DAILY L-Carnitine 500 mg Capsule 500 mg PO DAILY Rx Instructions: must administer with a meal/food zolpidem [Ambien] 10 mg tablet See Rx Instructions .ROUTE .COMPLEX PRN (Reason: insomnia) Rx Instructions: 1/4 TAB lorazepam 0.5 mg tablet 0.5 mg PO DAILY PRN (Reason: Anxiety) Patient Comments: pt states she usually only takes a few a month Rx Instructions: daily as needed for anxiety or nausea fosinopril 10 mg tablet 5 mg PO DAILY Qty: 45 1RF sertraline 50 mg tablet 75 mg PO DAILY Qty: 135 1RF Follow-up/Referrals: Clarence Whitley MD [Primary Care Provider] - 3 Days Time of Disposition: 10:08
[2024-08-27 09:59] VITALS: BP 149/76; PULSE 66; RESP 18; TEMP 36.4; O2SAT 99
--- OUTSIDE RECORDS SUMMARY | 2024-08-27 10:10 | XMS_ITS | Patient Health Summary ---
Author Organization [facility] Address [address] [place] [address] Care Team Providers Care Shop Supervisor Name Role Phone Clarence Whitley MD Primary Care Provider [phone] Note from [facility],non-owned Affiliates and Associated Physician Practices is amultiple site organization consisting of ambulatory clinics and hospital sitesin [place], [place], [place] and [place]. This disclosure is being madepursuant to the Care Everywhere program and may not contain all information available regarding this patient. Last updated 18.[facility] Allergies * Polymyxin B-Trimethoprim(Swelling) Medications * Be aware that medications may not be up to date on this document. Alwaysverify current medications with the patient. * FOSINOPRIL SODIUM PO Social History Tobacco Use Types Packs/Day Years Used Date Smoking Tobacco: Former Smokeless Tobacco: Never Sex and Gender Information Value Date Recorded Sex Assigned at Not on file Gender Identity Not on file Sexual Orientation Not on file Last Filed Vital Signs Vital Sign Reading Time Taken Comments Blood Pressure 118/80 10/18/2016 12:30 PM CDT Pulse 77 10/18/2016 12:30 PM CDT Temperature 36.9 C (98.5 F) 10/18/2016 12:30 PM CDT Respiratory Rate 16 10/18/2016 12:30 PM CDT Oxygen Saturation 99% 10/18/2016 12:30 PM CDT Inhaled Oxygen Concentration - - Weight 62.6 kg (138 lb) 10/18/2016 12:30 PM CDT Height 168.9 cm (5' 6.5 ) 10/18/2016 12:30 PM CD T Body Mass Index 21.94 10/18/2016 12:30 PM CDT Procedures * DERMATOPATHOLOGY(Performed 05/13/2024) * DERMATOPATHOLOGY(Performed 05/30/2023) * STREP A SCREEN - POINT OF CARE (AMB) STL(Performed 10/18/2016) Performed for Nasopharyngitis acute Results * DERMATOPATHOLOGY (05/13/2024 12:00 AM CDT) Only the most recent of2 resultswithin the time period is included. Case Report Dermatopathology Report Case: [id number] Authorizing Provider: Sonu Durham MD Collected: 05/13/2024 12:00 AM Ordering Location: [facility] - Received: 05/15/2024 06:52 AM DermPath Lab Pathologist: Giulia Jones MD Specimen: Skin, left upper thigh 12:15 PM CDT DERMATOPATHOLOGY LABORATORY Final Diagnosis Specimen A. SKIN, left upper thigh: BENIGN VERRUCOUS KERATOSIS, INFLAMED, SUPERFICIAL PORTIONS OF (L82.1) 12:15 PM CDT DERMATOPATHOLOGY LABORATORY Clinical History ISK vs MM 12:15 PM CDT DERMATOPATHOLOGY LABORATORY Gross Description Specimen A: Received is one formalin filled container labeled with the patient's name and designated left upper thigh. The specimen consists of a shave biopsy measuring 11x6x4 mm. Jar 0. 12:15 PM CDT DERMATOPATHOLOGY LABORATORY Microscopic Description Specimen A. SKIN, left upper thigh: Sections show hyperkeratosis, papillomatosis, hypergranulosis, and acanthosis. Inflammatory cells are present within the dermis. The base of the lesion is not visualized. These histological findings can be seen in a verruca vulgaris or a seborrheic keratosis. 12:15 PM CDT DERMATOPATHOLOGY LABORATORY Disclaimer An external and internal positive and negative controls are appropriate for the histochemical, immunohistochemical and immunofluorescence stain(s) in this case (if any), except where stated explicitly. The performance characteristics of the stain(s) cited in this report were developed and its performance characteristic determined by the Dermatopathology Laboratory at [facility], directed by Dr. Michela Arreola. These tests need not be, and therefore are not, approved by the [place] Food and Drug Administration. The tests are used for clinical purposes. Billing Codes Specimen Charges Stain Charges 19583 1 4 12:15 PM CDT DERMATOPATHOLOGY LABORATORY Embedded Images 12:15 PM CDT DERMATOPATHOLOGY LABORATORY Pathology/Cytolog y TISSUE SPECIMEN FROM SKIN / Unknown 05/13/2024 05/15/2024 6:52 AM CDT Sonu Durham MD LAB - PATHOLOGY/CYTO LOGY ORDERABLES DERMATOPATHOLOGY LABORATORY [facility] - Department of Dermatology [address] [phone] * STREP A SCREEN (10/18/2016) Strep A Rapid POCT Negative Negative Strep A Internal Control Present Lot # [id number] Expiration Date 01/04/2018 Throat ENTIRE THROAT (SURFACE REGION OF NECK) / Unknown 10/18/2016 Jovita Lisa APRN-[facility] LAB - POINT OF CARE ORDERABLES Care Teams Shop Supervisor Relationship Specialty Start Date End Date Clarence Whitley MD [address] [place] [address] PCP - General Family Medicine 10/18/16
--- OUTSIDE RECORDS SUMMARY | 2024-08-27 10:10 | XMS_ITS | Encounter Summary ---
Author Organization [facility] Address [address] [address] Care Team Providers Care Household Refrigeration Mechanic Name Role Phone Clarence Whitley MD Primary Care Provider [phone] Encounter Details Date Type Department Care Team (Late st Contact Info) Description 05/15/2024 Lab Requisition [facility] - DermPath Lab [address] [place] [id number] Sonu Durham MD [address] [place], [place] [id number] Social History Tobacco Use Types Packs/Day Years Used Date Smoking Tobacco: Former Smokeless Tobacco: Never Sex and Gender Information Value Date Recorded Sex Assigned at Not on file Gender Identity Not on file Sexual Orientation Not on file documented as of this encounter Plan of Treatment Not on file documented as of this encounter Procedures Procedure Name Priority Date/Time Associated Diagnosis Comments DERMATOPATHOLOGY Routine 05/13/2024 12:0 0 AM CDT documented in this encounter Results * DERMATOPATHOLOGY (05/13/2024 12:00 AM CDT) Case Report Dermatopathology Report Case: [id number] Authorizing Provider: Sonu Durham MD Collected: 05/13/2024 12:00 AM Ordering Location: [facility] Physician [facility] - Received: 05/15/2024 06:52 AM DermPath Lab Pathologist: Giulia Jones MD Specimen: Skin, left upper thigh 12:15 PM T DERMATOPATHOLOGY LABORATORY Final Diagnosis Specimen A. SKIN, left upper thigh: BENIGN VERRUCOUS KERATOSIS, INFLAMED, SUPERFICIAL PORTIONS OF (L82.1) 12:15 PM [facility] DERMATOPATHOLOGY LABORATORY Clinical History ISK vs MM 12:15 PM [facility] DERMATOPATHOLOGY LABORATORY Gross Description Specimen A: Received is one formalin filled container labeled with the patient's name and designated left upper thigh. The specimen consists of a shave biopsy measuring 11x6x4 mm. Jar 0. 12:15 PM [facility] DERMATOPATHOLOGY LABORATORY Microscopic Description Specimen A. SKIN, left upper thigh: Sections show hyperkeratosis, papillomatosis, hypergranulosis, and acanthosis. Inflammatory cells are present within the dermis. The base of the lesion is not visualized. These histological findings can be seen in a verruca vulgaris or a seborrheic keratosis. 12:15 PM [facility] DERMATOPATHOLOGY LABORATORY Disclaimer An external and internal positive and negative controls are appropriate for the histochemical, immunohistochemical and immunofluorescence stain(s) in this case (if any), except where stated explicitly. The performance characteristics of the stain(s) cited in this report were developed and its performance characteristic determined by the Dermatopathology Laboratory at [facility], directed by Dr. Michela Arreola. These tests need not be, and therefore are not, approved by the [place] Food and Drug Administration. The tests are used for clinical purposes. Billing Codes Specimen Charges Stain Charges 02976 1 12:15 PM CDT DERMATOPATHOLOGY LABORATORY Embedded Images 12:15 PM T DERMATOPATHOLOGY LABORATORY Pathology/Cytolog y TISSUE SPECIMEN FROM SKIN / Unknown 05/13/2024 05/15/2024 6:52 AM CDT Sonu Durham MD LAB - PATHOLOGY/CYTO LOGY ORDERABLES DERMATOPATHOLOGY LABORATORY [facility] - Department of Dermatology [address] [phone] documented in this encounter Visit Diagnoses Not on filedocumented in this encounter Care Teams Household Refrigeration Mechanic Relationship Specialty Start Date End Date Clarence Whitley MD [address] [place] [address] PCP - General Family Medicine 10/18/16 documented as of this encounter
--- OUTSIDE RECORDS SUMMARY | 2024-08-27 10:10 | XMS_ITS | Clinical Summary ---
Author Organization [facility] Address [address] [place] [address] Care Team Providers Care Sales Enablement Analyst Name Role Phone Unavailable Primary Care Provider Unavailabl e Social History Tobacco Use Types Packs/Day Years Used Date Smoking Tobacco: Never Assessed Comments Unknown Sex and Gender Information Value Date Recorded Sex Assigned at Not on file Legal Sex Female 7:57 PM CDT Gender Identity Not on file Sexual Orientation Not on file Plan of Treatment Health Maintenance Due Date Last Done Comments DTaP, Tdap and Td Vaccines ( 1 - Tdap) 1961 Zoster Vaccines (1 of 2) 1992 Dexa Scan (General) 11/02/2007 Pneumococcal Vaccine: 65+ Ye ars (1 of 1 - PCV) 11/02/2007 RSV Immunization or 60+ Years (1 - 1-dose 75+ series) 2017 COVID-19 Vaccine (2023-2 5 season) 2024 Influenza Adult (#1) 2024 Meningococcal B Vaccine Aged Out No l onger eligible based on patient's age to complete this topic Meningococcal Vaccine Aged Out No frank duyen eligible based on patient's age to complete this topic RSV Immunizations Under 20 Months Aged Out No longer eligible based on patient's age to complete this topic
--- OUTSIDE RECORDS SUMMARY | 2024-08-27 10:10 | XMS_ITS | Clinical Summary ---
Author Organization [facility] [employer] Address [address] [place] [address] Care Team Providers Care Dope Worker Name Role Phone Clarence Whitley MD Primary Care Provider [phone] Source Comments [facility],non-owned Affiliates and Associated Physician Practices is amultiple site organization consisting of ambulatory clinics and hospital sitesin [place], [place], [place] and [place]. This disclosure is being madepursuant to the Care Everywhere program and may not contain all information available regarding this patient. Last updated 18.[facility] [employer] Allergies Active Allergy Reactions Criticality Noted Date Comments Polymyxin B-Trimethoprim Swelling 10/18/2016 Medications * Be aware that medications may not be up to date on this document. Alwaysverify current medications with the patient. Medication Sig Dispensed Refills Start Date End Date Status FOSINOPRIL SODIUM PO Acti ve Social History Tobacco Use Types Packs/Day Years [...] Mass Index 21.94 10/18/2016 12:30 PM CDT Plan of Treatment Health Maintenance Due Date Last Done Comments BONE DENSITY TESTING 1942 DTAP/TDAP/TD VACCINES (1 - Tdap) 1961 PNEUMOCOCCAL VACCINE 50+ (1 of 1 - PCV) 1992 ZOSTER VACCINE (1 of 2) 1992 Respiratory Syncytial Virus (RSV) Vaccine Pt: or over 60 yrs (1 - 1-dose 75+ series) 2017 COVID-19 VACCINE ( - 2023-2 5 season) 2024 INFLUENZA VACCINE (#1) 2024 DEPRESSION SCREENING 07/22/2024 MEDICARE AWV CALENDAR YEAR 2024 HEPATITIS B VACCINE Aged Out No longe r eligible based on patient's age to complete this topic HIB VACCINE Aged Out No longer eligi ble based on patient's age to complete this topic HPV VACCINE Aged Out No longer eligi ble based on patient's age to complete this topic MENINGOCOCCAL (Group B) VACCINE Aged Out No longer eligible based on patient's age to complete this topic MENINGOCOCCAL VACCINE Aged Out No frank duyen eligible based on patient's age to complete this topic Care Teams Dope Worker Relationship Specialty Start Date End Date Clarence Whitley MD [address] [place] [address] PCP - General Family Medicine 10/18/16
--- OUTSIDE RECORDS SUMMARY | 2024-08-27 10:10 | XMS_ITS | Referral Summary ---
Author Organization [facility] Address [address] [place] [address] Care Team Providers Care Staff Antisubmarine Officer Name Role Phone Clarence Whitley MD Primary Care Provider [phone] Source Comments [facility],non-owned Affiliates and Associated Physician Practices is amultiple site organization consisting of ambulatory clinics and hospital sitesin [place], [place], [place] and [place]. This disclosure is being madepursuant to the Care Everywhere program and may not contain all information available regarding this patient. Last updated 18.[facility] Allergies Active Allergy Reactions Criticality Noted Date [...] 10/18/2016 12:30 PM CDT Plan of Treatment Not on file Care Teams Staff Antisubmarine Officer Relationship Specialty Start Date End Date Clarence Whitley MD [address] [place] [address] PCP - General Family Medicine 10/18/16
--- OUTSIDE RECORDS SUMMARY | 2024-08-27 10:10 | XMS_ITS | Encounter Summary ---
Author Organization [facility] Address [address] [place] [address] Care Team Providers Care Linux Network Administrator Name Role Phone Clarence Whitley MD Primary Care Provider [phone] Encounter Details Date Type Department Care Team (Late st Contact Info) Description 05/30/2023 Lab Requisition [facility] - DermPath Lab [address] [place] [phone] Sonu Durham MD [address] [place], [place] [phone] Social History Tobacco Use Types Packs/Day Years [...] Priority Date/Time Associated Diagnosis Comments DERMATOPATHOLOGY Routine 05/30/2023 12:0 0 AM IT SERVICE MANAGER documented in this encounter Results * DERMATOPATHOLOGY (05/30/2023 12:00 AM IT SERVICE MANAGER) Case Report Dermatopathology Report Case: [id number] Authorizing Provider: Sonu Durham MD Collected: 05/30/2023 12:00 AM Ordering Location: [facility] DermPath Lab Received: 05/30/2023 03:28 PM Pathologist: Claribel Sanchez MD Specimen: Skin, left index finger 1:56 PM [facility] DERMATOPATHOLOGY LABORATORY Final Diagnosis Specimen A. SKIN, left index finger: SEBORRHEIC KERATOSIS, MACULAR (L82.1) 3 1:56 PM [facility] DERMATOPATHOLOGY LABORATORY Clinical History R/O Lentigo or Melanocytic Process 1:56 PM [facility] DERMATOPATHOLOGY LABORATORY Gross Description Specimen A: Received is one formalin filled container labeled with the patient's name and designated left index finger. The specimen consists of a shave biopsy measuring 10x3x1 mm. Jar 0. 1:56 PM [facility] DERMATOPATHOLOGY LABORATORY Microscopic Description Specimen A. SKIN, left index finger: Sections show a relatively broad, flat proliferation of small keratinocytes. The surface is gently papillated, and there is increased basilar pigmentation. 1:56 PM [facility] DERMATOPATHOLOGY LABORATORY Disclaimer An external and internal positive and negative controls are appropriate for the histochemical, immunohistochemical and immunofluorescence stain(s) in this case (if any), except where stated explicitly. The performance characteristics of the stain(s) cited in this report were developed and its performance characteristic determined by the Dermatopathology Laboratory at [facility], directed by Dr. Michela Arreola. These tests need not be, and therefore are not, approved by the [place] Food and Drug Administration. The tests are used for clinical purposes. Billing Codes Specimen Charges Stain Charges 81092 1 3 1:56 PM IT SERVICE MANAGER DERMATOPATHOLOGY LABORATORY Embedded Images 3 1:56 PM [facility] DERMATOPATHOLOGY LABORATORY Pathology/Cytolog y TISSUE SPECIMEN FROM SKIN / Unknown 05/30/2023 05/30/2023 3:28 PM IT SERVICE MANAGER Sonu Durham MD LAB - PATHOLOGY/CYTO LOGY ORDERABLES DERMATOPATHOLOGY LABORATORY [facility] - Department of Dermatology [address] [place] [address], [facility] [phone] documented in this encounter Visit Diagnoses Not on filedocumented in this encounter Care Teams Linux Network Administrator Relationship Specialty Start Date End Date Clarence Whitley MD [address] [place] [address] PCP - General Family Medicine 10/18/16 documented as of this encounter
--- OUTSIDE RECORDS SUMMARY | 2024-08-27 10:11 | XMS_ITS ---
Author Organization [facility] [address] Address [address] [place] [address] Care Team Providers Care Prescription Clerk Lenses Name Role Phone Clarence Whitley MD Primary Care Provider Tejinder Montoya DO Unavailable [phone] Active Problems Problem Noted Date Diagnosed Date Dizziness 04/30/2023 Nonrheumatic tricuspid valve regurgitation 12/03 Age-related osteoporosis wit hout current pathological fracture 08/20/2022 Mixed hyperlipidemia 12/14/2021 Hx of colonic polyp 08/30/2020 Overview (08/30/2020): Added automatically from request for surgery [id number] 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 Syncope 12/28/2019 QT prolongation 12/28/2019 Statin intolerance 12/02/2017 H/O cardiomyopathy 12/02/2017 Paroxysmal atrial tachycardia 10/25/2017 Adjustment disorder 05/10/2017 Adverse effect of drug 12/10/2016 Overview (12/14/2016): Medication side effects, subsequent encounter Awareness of heartbeats 12/10/2016 Overview (12/14/2016): Palpitations Disorder of bone 12/03/2016 Difficulty sleeping 06/04/2016 Overview (10/26/2016): Poor sleep Chronic fatigue syndrome 06/04/2016 Overview (10/26/2016): Chronic fatigue Drug intolerance 03/14/2016 Overview (10/26/2016): Statin intolerance Cardiomyopathy 03/14/2016 Overview (10/26/2016): Cardiomyopathy Intestinal obstruction (CMS/HCC) 03/14/2016 Overview (10/26/2016): Transient bowel obstruction Benign hypertension 03/14/2016 Overview (10/26/2016): HTN (hypertension), benign Parastomal hernia 05/30/2015 Indigestion 04/20/2014 Radiation proctitis 04/20/2014 Abdominal pain 06/24/2013 Pyrexia 03/31/2013 Hematochezia 09/30/2012 Osteopenia 12/24/2011 Hypertension 09/04/2011 Palpitations 09/04/2011 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 Other Current Plans Zoledronic Acid (Reclast) Infusion* Plan Start Date:04/15/2024 Plan Provider:Kulwinder Collado MD Linked Problems Age-related osteoporosis wit hout current pathological fracture Treatment Medications No medications scheduled. Past Plans Radiation Treatments * No radiation treatments are documented for this patient in [facility]. Treatments may have been administered in another system. Lifetime Dose Tracking * Chemical Lifetime Dose Automatic Entry Manual Entr y DLP 494 mGycm 494 mGycm 0 mGycm Resolved Problems Problem Noted Date Diagnosed Date Resolved Date Dyslipidemia 03/14/2016 04/30/2023 Overview (10/26/2016): Dyslipidemia Feces contents abnormal 09/30/201204/21
--- OUTSIDE RECORDS SUMMARY | 2024-08-27 10:11 | XMS_ITS | Clinical Summary ---
Author Organization [facility] [address] Address [address] [place] [address] Care Team Providers Care Kiln Maintenance Name Role Phone Clarence Whitley MD Primary Care Provider Tejinder Montoya DO Unavailable [phone] Allergies Active Allergy Reactions Criticality Noted Date Comments Amoxicillin-Pot Clavulanate Nausea & Vomiting Low Polymyxin B Sulf-Trimethoprim Swelling Medium 10/18/2016 Syrkqgk-Qni-Iuu Reductase Inhibitors Other (See comments) Low Muscle aching Sulfa (Sulfonamide Antibiotics) Other (See comments) Low nausea Trimethoprim Medications fosinopril (MONOPRIL) 10 mg tablet take 1/2 tablet by oral route every day 0 0 03/14/20 16 Active diphenhydrAMINE (BENADRYL) 25 mg capsule take 0.5 capsule by oral route every day at bed time as needed 0 0 12/11/19 17 Active acetaminophen (TYLENOL) 325 mg tablet Take 2 tablets (650 mg total) by mouth every 6 (six) hours as needed for pain Active CALCIUM CARBONATE/VITAMIN D3 (CALCIUM 500 + D, D3, ORAL) Take 1 tablet by mouth daily. Active acidophilus-pectin , citrus 100 million cell-10 mg capsule Take by mouth Active lidocaine-hydrocor tisone-aloe 3-2.5 % (7 gram) kit Apply to rectum bid/prn 1 each 3 01/07/20 21 Active Additional Information Patient not taking.Reported on 12/09/2023 coenzyme Q10 10 mg capsule Take 1 capsule (10 mg total) by mouth daily Active sertraline (ZOLOFT) 50 mg tablet Take 1.5 tablets (75 mg total) by mouth daily 45 tablet 6 08/20/19 23 Active biotin 10 mg tablet Active LORazepam (ATIVAN) 0.5 mg tablet Take 1 tablet (0.5 mg total) by mouth daily as needed for anxiety 30 tablet 1 01/17/20 23 Active prochlorperazine (COMPAZINE) 25 mg suppository Insert 1 suppository (25 mg total) into the rectum daily as needed for nausea or vomiting 12 suppository 3 10/17/19 24 Active Additional Information Patient not taking.Reported on 03/19/2024 ergocalciferol (VITAMIN D) 50,000 unit capsuleIndications :Vitamin D Deficiency Take 1 capsule (50,000 Units total) by mouth once a week 12 capsule 10/23/19 24 Active cholecalciferol (VITAMIN D-3) 2000 unit tabletIndications: Osteoporosis,Vitam in D Deficiency Take 1 tablet (2,000 Units total) by mouth daily 90 tablet 3 10/23/19 24 025 Active zolpidem (AMBIEN) 10 mg tabletIndications: Sleep-Onset Insomnia Take 2.5 mg by mouth nightly as needed for sleep Active hydrocortisone (ANUSOL-HC) 2.5 % rectal cream Insert into the rectum 2 (two) times a day 30 g 1 01/24/20 24 Active prochlorperazine (COMPAZINE) 10 mg tablet Take 1 tablet (10 mg total) by mouth 3 (three) times a day as needed for nausea or vomiting 60 tablet 3 02/05/20 24 Active Additional Information Patient not taking.Reported on 03/19/2024 ondansetron ODT (Zofran ODT) 4 mg disintegrating tablet Take 1 tablet (4 mg total) by mouth 3 (three) times a day as needed for nausea or vomiting 60 tablet 1 07/27/19 25 Active Active Problems Problem Noted Date Diagnosed Date Dizziness 04/30/2023 Nonrheumatic tricuspid valve regurgitation 12/03 Age-related osteoporosis wit hout current pathological fracture 08/20/2022 Mixed hyperlipidemia 12/14/2021 Hx of colonic polyp 08/30/2020 Overview (08/30/2020): Added automatically from request for surgery [id number] 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 [...] (2017): Description: Treated by radical cystectomy in Resolved Problems Problem Noted Date Diagnosed Date Resolved Date Dyslipidemia 03/14/2016 04/30/2023 Overview (10/26/2016): Dyslipidemia Feces contents abnormal 09/30/201204/213 Encounters Date Type Department Care Team Description 08/10/2024 2:04 PM DRAWING OPERATOR - 08/10/2024 11:59 PM DRAWING OPERATOR Hospital Encounter [facility] 1 [facility] [address] [facility] [address] [place] [id number] Abnormal mammogram Discharge Disposition: Discharge to home or self care 08/10/2024 2:03 PM DRAWING OPERATOR - 08/10/2024 11:59 PM DRAWING OPERATOR Hospital Encounter [facility] [address] [facility] [address] [facility] [address] [place] [address] Abnormal mammogram Discharge Disposition: Discharge to home or self care 08/05/2024 1:56 PM DRAWING OPERATOR - 08/05/2024 11:59 PM DRAWING OPERATOR Hospital Encounter [facility] [address] [place] [address] Screening mammogram, encounter for Discharge Disposition: Discharge to home or self care from Last 3 Months Immunizations Name Administration Dates Next Due Flucelvax Influenza Quad 05/07/2019 Influenza, Quadrivalent, Hig h Dose, Preservative Free, Intrr 05/07/2022,03/16/2020 Influenza, Quadrivalent, Spl it, Preservative Free, Intramuscular 04/01/2013 Influenza, Trivalent, Adjuva nted, Intramuscular 05/10/2018,05/09/2018 Influenza, Trivalent, High D ose, Split, Preservative Free, Intramuscular 05/09/2017,04/14/2015 Influenza, Trivalent, IM (MDV) 05/02/2011 Moderna SARS-CoV-2 Monovalen t Vaccination (12+ YRS) 05/18/2022,12/28/2021,09/20/2020,08/18 Pneumococcal Conjugate PCV 13 07/31/2015 Pneumococcal Polysaccharide PPV23 04/01/2013 Tdap 02/01/2020 ZOSTER LIVE 08/08/2015 ZOSTER Recombinant 07/03/2018,04/09/2018, 018 Surgical History Surgery Date Site/Laterality Comments CYSTECTOMY W/ URETEROILEAL CONDUIT HERNIA REPAIR THYROIDECTOMY BREAST CYST ASPIRATION COLONOSCOPY POLYPECTOMY CATARACT EXTRACTION 2022 COLON SURGERY SMALL INTESTINE SURGERY 2007 BLADDER SURGERY 1999 ABDOMINAL SURGERY 2007 Medical History Medical History Date Comments Hypertension Cardiomyopathy (HCC) Paroxysmal atrial tachycardia (HCC) Hyperlipidemia Fractured nose UTI (urinary tract infection) Menopause syndrome Osteopenia Coronary artery disease Depression Migraines Osteoarthritis Anemia Colon polyp Cancer (CMS/HCC) (HCC) bladder a nd uretheral diagnosed in 09/1999 History of transfusion Covid Bladder cancer (HCC) Urethral cancer (HCC) Myocardial infarction (HCC) Anxiety Heart disease 2016 Infection Seasonal allergic rhinitis Family History Medical History Relation Name Comments Bladder Cancer Brother Jose Kidney disease Brother Jose Alcohol abuse Father Lior Diabetes Father Lior Heart attack Father Lior Memory loss Father Lior Stroke Father Lior Stroke; Arthritis Mother Zahra Heart disease Mother Zahra Other Mother Zahra Unknown; Cause of : Unknown Colon cancer Mother's Brother Alcohol abuse Other Deep vein thrombosis Other Diabetes Other Broken bones Neg Hx Hip fracture Neg Hx Osteoporosis Neg Hx Scoliosis Neg Hx Relation Name Status Comments Brothleonidas Garcia Father Lior (Age 86) Mother Zahra (Age 92) Mother's Brother Other Social History Tobacco Use Types Packs/Day Years Used Date Smoking Tobacco: Former Cigarettes 0.1 39 Q uit: 08/22/1998 Smokeless Tobacco: Never Alcohol Use Standard Drinks/Week Comments No 0 (1 standard drink = 0.6 oz pur e alcohol) never AUDIT-C Answer Date Recorded Q1: How often do you have a drink containing alcohol? Never 03/19/2024 Q2: How many drinks containi ng alcohol do you have on a typical day when you are drinking? Patient does not drink Q3: How often do you have si x or more drinks on one occasion? Never 03/19/2024 Personal Safety Answer Date Recorded Have you ever been in or are you currently in a harmful physical or emotional relationship or is someone making you feel afraid or unsafe? Denies 09/26/2023 Comments No Sex and Gender Information Value Date Recorded Sex Assigned at Female 09/23/2018 8:59 AM DRAWING OPERATOR Legal Sex Female 8:28 PM DRAWING OPERATOR Gender Identity Female 09/23/2018 8:59 AM DRAWING OPERATOR Sexual Orientation Not on file Occupation Industry Job Start Date Job End Date retired Not on file Not on file Not on file Obstetrics History Para Term AB IAB SAB Ectopic Multiple Livin g Live Births 4 4 4 Date Outcome GA Total Labor Labor/2nd/3rd Weight Sex Type Anes PTL Arianna A1 A5 Name Clin Term Term Term Term Last Filed Vital Signs Vital Sign Reading Time Taken Comments Blood Pressure 145/81 04/15/2024 10:00 AM CDT Pulse 69 04/15/2024 10:00 AM CDT Temperature 36.3 C (97.3 F) 04/15/2024 10:00 AM CDT Respiratory Rate 18 04/15/2024 10:00 AM CDT Oxygen Saturation 98% 04/15/2024 10:00 AM CDT Inhaled Oxygen Concentration - - Weight 65.3 kg (144 lb) 03/19/2024 10:05 AM CDT Height 167.6 cm (5' 6 ) 12/09/2023 8:34 AM CDT Body Mass Index 23.24 12/09/2023 8:34 AM CDT Plan of Treatment Health Maintenance Due Date Last Done Comments Depression Screening 1940 Hepatitis B Screening 1958 Well Visit 65+ 11/02/2007 Covid-19 Vaccine (5 - 2023-2 5 season) 2024 05/18/2022, 12/28/2021, 09/20/2020, Additional history exists Influenza Vaccine (#1) 2024 , 03/16/2020, 05/07/2019, Additional history exists Fall Risk Assessment 09/25/2024 09/26/2023 Osteoporosis Screening-Bone Density Scan 10/20/2025 10/21/2023, 08/20/2022, 02/15/2020, Additional history exists DTaP/Tdap/Td Vaccine (2 - Td or Tdap) 01/31/2030 02/01/2020 Pneumococcal vaccine 65+ Completed 07/31/2015, 03/22 Zoster Vaccine Completed 07/03/2018, 03/22, 04/08/2018, Additional history exists Procedures Procedure Name Priority Date/Time Associated Diagnosis Comments US BREAST BILATERAL LIMITED Schedule Routine, Read Routine (OP Routine) 08/10/2024 3:23 PM DRAWING OPERATOR Abnormal mammogram DIAGNOSTIC MAMMOGRAM BILATERAL [place] Schedule Routine, Read Routine (OP Routine) 08/10/2024 2:22 PM DRAWING OPERATOR Abnormal mammogram SCREENING MAMMOGRAM BILATERAL [place] Schedule Routine, Read Routine (OP Routine) 08/05/2024 2:15 PM DRAWING OPERATOR Screening mammogram, encounter for DEXA TBS AXIAL SKELETON BONE DENSITY 1 OR MORE SITES Schedule Routine, Read Routine (OP Routine) 10/21/2023 10:24 AM CDT Age-related osteoporosis without current pathological fracture from Last 3 Months or Most Recently Relevant to Health Maintenance Results * US Breast Bilateral Limited (08/10/2024 3:23 PM DRAWING OPERATOR) Anatomical Region Laterality Modality Breast Bilateral Ultrasound 08/10/2024 3:52 PM DRAWING OPERATOR Impressions 08/10/2024 3:52 PM DRAWING OPERATOR 1. There is a cyst accounting for the mammographic finding on the right. 2. Probably benign structure which is thought to most likely account for the mammographic finding on the left. Six-month follow-up left mammogram and left breast ultrasound through 9:00. OVERALL FINAL ASSESSMENT: BI-RADS 3 - Probably benign findings. Short-term follow-up is recommended. Electronically signed by: Beckie Posada M.D. Narrative 08/10/2024 3:52 PM DRAWING OPERATOR EXAMINATION: BILATERAL DIGITAL DIAGNOSTIC MAMMOGRAM AND DIGITAL BREAST TOMOSYNTHESIS; BILATERAL BREAST SONOGRAM HISTORY: Additional imaging COMPARISON: August 05, 2024 TECHNIQUE: Full field digital mammographic views of the bilateral breast(s) were performed, including computer aided detection (CAD) and digital breast tomosynthesis (DBT). Directed ultrasound evaluation of the bilateral breast(s) was performed. BREAST PARENCHYMAL COMPOSITION: There are scattered areas of fibroglandular density. MAMMOGRAM FINDINGS: The asymmetries in question could not be seen on additional mammographic imaging secondary to posterior location. On the screening views, they both appear to be near the chest wall. The one on the right is just lateral to the nipple line and one on the left is just medial to the nipple line. There are no new or suspicious masses. No suspicious calcifications are seen. There is no unexplained architectural distortion. There is no skin thickening seen. There are no mammographically abnormal lymph nodes seen in the axillae or elsewhere. ULTRASOUND FINDINGS: Scanning was performed through a wide band just lateral to the nipple line on the right just medial to the nipple line on the left. There is a cyst on the right at 9:00 with a single thin septation, considered benign. The maximum dimension is 5 mm. There is one simple cyst at 8:00 which measures 5 mm and is deeper than the other cyst. This likely accounts for the mammographic nodule. On the left at 8:00 in the retroareolar region, there is a simple cyst with a maximum dimension of 6 mm. There is another cyst on the left at 9:00, deeper near the chest wall muscle, which probably accounts for the mammographic finding. It appears to have a somewhat thicker septation and measures 5 mm. This is considered probably benign. us Clarence Whitley MD IMG MAMMO PROCEDURES Fi nal Result * Diagnostic Mammogram Bilateral [place] (08/10/2024 2:22 PM DRAWING OPERATOR) Anatomical Region Laterality Modality Breast Bilateral Mammography 08/10/2024 3:52 PM DRAWING OPERATOR Impressions 08/10/2024 3:52 PM DRAWING OPERATOR 1. There is a cyst accounting for the mammographic finding on the right. 2. Probably benign structure which is thought to most likely account for the mammographic finding on the left. Six-month follow-up left mammogram and left breast ultrasound through 9:00. OVERALL FINAL ASSESSMENT: BI-RADS 3 - Probably benign findings. Short-term follow-up is recommended. Electronically signed by: Beckie Posada M.D. Narrative 08/10/2024 3:52 PM DRAWING OPERATOR EXAMINATION: BILATERAL DIGITAL DIAGNOSTIC MAMMOGRAM AND DIGITAL BREAST TOMOSYNTHESIS; BILATERAL BREAST SONOGRAM HISTORY: Additional imaging COMPARISON: August 05, 2024 TECHNIQUE: Full field digital mammographic views of the bilateral breast(s) were performed, including computer aided detection (CAD) and digital breast tomosynthesis (DBT). Directed ultrasound evaluation of the bilateral breast(s) was performed. BREAST PARENCHYMAL COMPOSITION: There are scattered areas of fibroglandular density. MAMMOGRAM FINDINGS: The asymmetries in question could not be seen on additional mammographic imaging secondary to posterior location. On the screening views, they both appear to be near the chest wall. The one on the right is just lateral to the nipple line and one on the left is just medial to the nipple line. There are no new or suspicious masses. No suspicious calcifications are seen. There is no unexplained architectural distortion. There is no skin thickening seen. There are no mammographically abnormal lymph nodes seen in the axillae or elsewhere. ULTRASOUND FINDINGS: Scanning was performed through a wide band just lateral to the nipple line on the right just medial to the nipple line on the left. There is a cyst on the right at 9:00 with a single thin septation, considered benign. The maximum dimension is 5 mm. There is one simple cyst at 8:00 which measures 5 mm and is deeper than the other cyst. This likely accounts for the mammographic nodule. On the left at 8:00 in the retroareolar region, there is a simple cyst with a maximum dimension of 6 mm. There is another cyst on the left at 9:00, deeper near the chest wall muscle, which probably accounts for the mammographic finding. It appears to have a somewhat thicker septation and measures 5 mm. This is considered probably benign. Clarence Whitley MD IMG MAMMO PROCEDURES Fi nal Result * (ABNORMAL) Screening Mammogram Bilateral [place] (08/05/2024 2:15 PM DRAWING OPERATOR) Anatomical Region Laterality Modality Breast Bilateral Mammography Impressions 08/05/2024 2:56 PM DRAWING OPERATOR BI-RADS ATLAS category (overall): 0 - Incomplete: Needs Additional Imaging Evaluation Indeterminate bilateral breast asymmetries. Further evaluation with bilateral diagnostic mammography and possible diagnostic breast ultrasound is recommended. The patient has been or will be contacted. Narrative 08/05/2024 2:56 PM DRAWING OPERATOR Screening Mammogram Bilateral W [place]: 08/05/24 The study was acquired using full field digital technology and interpreted from soft copy. 2D digital mammographic views, as well as 3D digital tomosynthesis were performed in the CC and MLO projections. CLINICAL: Screening mammogram, encounter for. No relevant medical history has been documented for this patient. No known family history of breast cancer. COMPARISONS: 04/30/2023 Screening Mammogram Bilateral [place] 03/29/2022 Screening Mammogram Bilateral [place] 01/18/2021 Screening Mammogram Bilateral [place] 09/21/2019 Screening Mammogram Bilateral [place] 09/15/2018 Screening Mammogram Bilateral [place] 08/01/2017 MAMMOGRAPHY, TOMOGRAPHY, BILATERAL 05/01/2016 Screening Mammogram 02/17/2015 DIGITAL MAMMOGRAPHY, UNILATERAL 02/15/2015 Screening Mammogram [place] BREAST TISSUE: There are scattered areas of fibroglandular density. FINDINGS: There is a stable benign circumscribed mass in the medial right breast. There are benign bilateral breast calcifications. There is an indeterminate asymmetry in the lateral right breast, [id number] depth, on the CC view. There is a subtle, incompletely visualized asymmetry in the medial left breast, posterior depth, on the CC view. us Self Screening Mammogram IMG MAMMO PROCEDURES Fi nal Result * Dexa TBS Axial Skeleton Bone Density 1 or more sites (10/21/2023 10:24 AM CDT) Anatomical Region Laterality Modality Wrist, Body N/A Radiographic Carmen ging Narrative 2023 12:27 PM CDT Patient Name: Roxanne Zuniga Date of : 1940 Date of scan: 10/21/2023 Bone mineral density was performed on a Hologic Discovery Densitometer. Based on machine cross-calibration and precision studies the least significant changes of this densitometer is 0.024 g/cm2 at the spine, 0.020 g/cm2 at the total proximal femur, and 0.014g/cm2 at the forearm. HISTORY: This is a 82 y.o. postmenopausal female with a history of low bone mass, thyroid disease, and vitamin D deficiency. She reports that she has quit smoking. Her smoking use included cigarettes. She has a 1.5 pack-year smoking history. She has never used smokeless tobacco. Currently on treatment with calcium, vitamin D, and zoledronic acid (Reclast), previously treated with risedronate (Actonel), raloxifene (Evista), and hormone replacement therapy, and current complaint of back pain, leg pain, and hip pain. INDICATIONS: Menopause status, treatment monitoring, vitamin D deficiency, and history of low bone mass. FINDINGS: BONE MINERAL DENSITY OF THE LUMBAR SPINE Bone Mineral Density (BMD) of the lumbar spine was measured from L1-L3 and the average density was calculated to be 0.942 gm/cm2. This corresponds to a T-score (standard deviations from the mean of young adults) of -0.7. When compared to the previous study of 08/20/2022 there has been no significant changes in bone density. BONE MINERAL DENSITY OF THE PROXIMAL FEMUR Bone Mineral Density (BMD) of the left hip total was found to be 0.733 gm/cm2. This corresponds to a T-score standard deviations from the mean of young adults of -1.7. Femoral neck is 0.554 gm/cm2 with a T-score (standard deviations from the mean of young adults) of -2.7. When compared to the previous study of 08/20/2022 there has been no significant changes in bone density. SUMMARY: Bone mineral density shows evidence of osteoporosis and marked increase risk of fracture. There has been no significant changes in bone density since previous measurement. L4 excluded from bone mineral density analysis of the lumbar spine because of bone density being more than 1 standard deviation discrepant relative to one adjacent vertebra. Clinical correlation is recommended. Please note that the previous lumbar spine scan has been reanalyzed to also exclude L4. The lumbar spine Trabecular Bone Score is 1.234 which suggests partially degraded bone microarchitecture compared to the general population. Final decisions regarding diagnostic or therapeutic recommendations should include BMD, TBS, additional clinical risk factors as well the clinical context of the patient. Please see attached TBS results for further details. ADDITIONAL COMMENTS: Postmenopausal Women and Men Over 50: Diagnostic criteria: Osteoporosis: BMD at or below -2.5 T-score; Osteopenia (low bone mass): BMD between -1.0 and -2.5 T-score. If the patient has a history of a fragility fracture, a fracture that occurred with trauma equivalent to a fall from a standing position or less, then the diagnosis is osteoporosis regardless of bone density. The history and data sections of the bone mineral density scan were prepared by Rosa Del Cid)(Yoly)(BD) CBDT who is accredited by the International Society of Clinical Densitometry. The overall patient assessment and scan interpretation were performed by Kulwinder Collaod MD who is certified by the International Society of Clinical Densitometry. [id number] Kulwinder Collado MD IMG DXA PROCEDURES Final Re sult from Last 3 Months or Most Recently Relevant to Health Maintenance Insurance [employer] MEDICARE [facility] MEDICARE [facility] MEDICARE Advance Directives For more information, please contact: [phone] * Full Code (Latest Code Status on File) Date Activated Date Inactivated Comments 09/26/2023 8:00 AM 09/26/2023 2:47 PM * Full Code Date Activated Date Inactivated Comments 09/07/2020 8:04 AM 09/07/2020 2:40 PM Care Teams Kiln Maintenance Relationship Specialty Start Date End Date Clarence Whitley MD [address] [place] [address] PCP - General 06/04/16 Tejinder Montoya DO [address] [place] [address] Medical Oncologist/Distribution Field Technician Hematology and Oncology 06/01/20
--- OUTSIDE RECORDS SUMMARY | 2024-08-27 10:11 | XMS_ITS | CONTINUITY OF CARE DOCUMENT ---
Author Name georgina erickson Address Unknown Organization [facility] Address [id number] [place] [address] [address] [place] [address] Phone [phone] Care Team Providers Care Prepress Stripper Name Role Phone Byron Nance MD Unavailable [phone] Byron Nance MD Unavailable [phone] INSURANCE PROVIDERS Payer name Policy type / Coverage type [place] red green party ID [id number]
--- OUTSIDE RECORDS SUMMARY | 2024-08-27 10:11 | XMS_ITS | Referral Summary ---
Author Organization [facility] [address] Address [address] [place] [address] Care Team Providers Care Classroom Teacher Name Role Phone Clarence Whitley MD Primary Care Provider Tejinder Montoya DO Unavailable [phone] Encounters Date Type Department Care Team Description 08/10/2024 2:04 PM BUSINESS ANALYSIS ANALYST - 08/10/2024 11:59 PM BUSINESS ANALYSIS ANALYST Hospital Encounter [facility] Medical Office [facility] [address] [address] Abnormal mammogram Discharge Disposition: Discharge to home or self care 08/10/2024 2:03 PM BUSINESS ANALYSIS ANALYST - 08/10/2024 11:59 PM BUSINESS ANALYSIS ANALYST Hospital Encounter [facility] Medical Office [facility] [address] [address] Abnormal mammogram Discharge Disposition: Discharge to home or self care 08/05/2024 1:56 PM BUSINESS ANALYSIS ANALYST - 08/05/2024 11:59 PM BUSINESS ANALYSIS ANALYST Hospital Encounter 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 [...] Overview (10/26/2016): Dyslipidemia Feces contents abnormal 09/30/201204/21 Immunizations Name Administration Dates Next Due Flucelvax [...] ZOSTER LIVE 08/08/2015 ZOSTER Recombinant 07/03/2018,04/09/2018, 018 Social History Tobacco Use Types Packs/Day Years [...] Sex Assigned at Female 09/23/2018 8:59 AM BUSINESS ANALYSIS ANALYST Legal Sex Female 8:28 PM BUSINESS ANALYSIS ANALYST Gender Identity Female 09/23/2018 8:59 AM BUSINESS ANALYSIS ANALYST Sexual Orientation Not on file Occupation Industry Job Start Date Job End Date retired Not on file Not on file Not on file Last Filed Vital Signs [...] 12/09/2023 8:34 AM CDT Plan of Treatment Not on file Procedures Procedure Name Priority Date/Time Associated Diagnosis Comments US BREAST BILATERAL LIMITED Schedule Routine, Read Routine (OP Routine) 08/10/2024 3:23 PM BUSINESS ANALYSIS ANALYST Abnormal mammogram DIAGNOSTIC MAMMOGRAM BILATERAL W GASTON Schedule Routine, Read Routine (OP Routine) 08/10/2024 2:22 PM BUSINESS ANALYSIS ANALYST Abnormal mammogram SCREENING MAMMOGRAM BILATERAL W G[place]ON Schedule Routine, Read Routine (OP Routine) 08/05/2024 2:15 PM BUSINESS ANALYSIS ANALYST Screening mammogram, encounter for DEXA TBS AXIAL SKELETON BONE DENSITY 1 OR MORE SITES Schedule Routine, Read Routine (OP Routine) 10/21/2023 10:24 AM CDT Age-related osteoporosis without current pathological fracture from Last 3 Months or Most Recently Relevant to Health Maintenance Results * US Breast Bilateral Limited (08/10/2024 3:23 PM BUSINESS ANALYSIS ANALYST) Anatomical Region Laterality Modality Breast Bilateral Ultrasound 08/10/2024 3:52 PM BUSINESS ANALYSIS ANALYST Impressions 08/10/2024 3:52 PM BUSINESS ANALYSIS ANALYST 1. There is a cyst accounting for [...] Beckie Posada M.D. Narrative 08/10/2024 3:52 PM BUSINESS ANALYSIS ANALYST EXAMINATION: BILATERAL DIGITAL DIAGNOSTIC MAMMOGRAM AND DIGITAL [...] Mammogram Bilateral W [place] (08/10/2024 2:22 PM BUSINESS ANALYSIS ANALYST) Anatomical Region Laterality Modality Breast Bilateral Mammography 08/10/2024 3:52 PM BUSINESS ANALYSIS ANALYST Impressions 08/10/2024 3:52 PM BUSINESS ANALYSIS ANALYST 1. There is a cyst accounting for the mammographic finding on the right. 2. Probably benign structure which is thought to most likely account for the mammographic finding on the left. Six-month follow-up left mammogram and left breast ultrasound through 9:00. OVERALL FINAL ASSESSMENT: BI-RADS 3 - Probably benign findings. Short-term follow-up is recommended. Electronically signed by: Perry Maxwell 08/10/2024 3:52 PM BUSINESS ANALYSIS ANALYST EXAMINATION: BILATERAL DIGITAL DIAGNOSTIC MAMMOGRAM AND DIGITAL [...] Mammogram Bilateral W Gaston (08/05/2024 2:15 PM BUSINESS ANALYSIS ANALYST) Anatomical Region Laterality Modality Breast Bilateral Mammography Impressions 08/05/2024 2:56 PM BUSINESS ANALYSIS ANALYST BI-RADS ATLAS category (overall): 0 - Incomplete: Needs Additional Imaging Evaluation Indeterminate bilateral breast asymmetries. Further evaluation with bilateral diagnostic mammography and possible diagnostic breast ultrasound is recommended. The patient has been or will be contacted. Narrative 08/05/2024 2:56 PM BUSINESS ANALYSIS ANALYST Screening Mammogram Bilateral W Gaston: 08/05/24 The [...] indeterminate asymmetry in the lateral right breast, [id number] depth, on the CC view. There is [...] Bone mineral density was performed on a [employer] Densitometer. Based on machine cross-calibration and [...] mineral density scan were prepared by Rosa Ledesma(Cedrick)(Yoly)(BD) CBDT who is accredited by the International Society of Clinical Densitometry. The overall patient assessment and scan interpretation were performed by Kulwinder Collado MD who is certified by the International Society of Clinical Densitometry. [id number] Kulwinder Collado MD IMG DXA PROCEDURES Final Re sult from Last 3 Months or Most Recently Relevant to Health Maintenance Insurance AETNA MEDICARE [facility] MEDICARE AETNA MEDICARE Advance Directives For more information, please contact: [phone] * Full Code (Latest Code Status on File) Date Activated Date Inactivated Comments 09/26/2023 8:00 AM 09/26/2023 2:47 PM * Full Code Date Activated Date Inactivated Comments 09/07/2020 8:04 AM 09/07/2020 2:40 PM Care Teams Classroom Teacher Relationship Specialty Start Date End Date Clarence Whitley MD [address] [place] [address] PCP - General 06/04/16 Tejinder Montoya DO [address] [place] [address] Medical Oncologist/Hide Inspector And Sorter Hematology and Oncology 06/01/20
--- OUTSIDE RECORDS SUMMARY | 2024-08-27 10:13 | XMS_ITS | Encounter Summary ---
Author Organization [facility] Address [address] [place] [address] Phone Care Team Providers Care It Programmer Name Role Phone lCarence Whitley MD Primary Care Provider Tejinder Montoya DO Unavailable [phone] Encounter Details Date Type Department Care Team (Late st Contact Info) Description 07/26/2019 Orders Only [facility] Scanning, Provider Social History Tobacco Use Types Packs/Day Years Used Date Smoking Tobacco: Former Cigarettes 0.1 30 Smokeless Tobacco: Never Alcohol Use Standard Drinks/Week Comments No 0 (1 standard drink = 0.6 oz pur e alcohol) Comments Unknown Sex and Gender Information Value Date Recorded Sex Assigned at Female 09/23/2018 8:59 AM WOOD GRINDER Legal Sex Female 8:28 PM WOOD GRINDER Gender Identity Female 09/23/2018 8:59 AM WOOD GRINDER Sexual Orientation Not on file documented as of this encounter Plan of Treatment Not on file documented as of this encounter Procedures Procedure Name Priority Date/Time Associated Diagnosis Comments SCAN - RADIOLOGY/IMAGING 07/26/2019 CARDIOLOGY DOCUMENT SCAN 07/26/2019 documented in this encounter Results * SCAN - CARDIOLOGY (07/26/2019) Anatomical Region Laterality Modality Other us Provider Scanning CV CARDIAC SERVICES PROCEDURES Final Result * SCAN - RADIOLOGY/IMAGING (07/26/2019) Anatomical Region Laterality Modality Other us Provider Scanning Edited Result - Final documented in this encounter Visit Diagnoses Not on filedocumented in this encounter Care Teams It Programmer Relationship Specialty Start Date End Date Clarence Whitley MD [address] [place] [address] PCP - General 06/04/16 Tejinder Montoya DO [address] [place] [address] Medical Oncologist/Gas Engine Repairer Hematology and Oncology 06/01/20 documented as of this encounter
--- OUTSIDE RECORDS SUMMARY | 2024-08-27 10:14 | XMS_ITS | CONTINUITY OF CARE DOCUMENT ---
Author Name georgina erickson Address Unknown Organization [facility] Address [address] [place] [address] [address] [place] [address] Phone [phone] Care Team Providers Care Major Assembly Lineman Name Role Phone Byron Nance MD Unavailable [phone] Byron Nance MD Unavailable [phone] INSURANCE PROVIDERS Payer name Policy type / Coverage type [place] red democrat ID [id number] PAY
== END 2024-08-27 10:11 | disposition home or self-care (01) ==
PROVIDERS: Emergency Provider Nurse Practitioner Family; PCP Family Medicine
DX: J06.9 Acute upper respiratory infection, unspecified (principal); I25.2 Old myocardial infarction; I10 Essential (primary) hypertension; E78.5 Hyperlipidemia, unspecified; Z87.891 Personal history of nicotine dependence
CPT/HCPCS: 99213; G0463

== ENCOUNTER 2024-09-09 12:20 | Outpatient (RCR) | payer MEDICARE, SELFPAY ==
[2024-09-09 12:44] VITALS: BMI 22.9
== END 2024-11-23 09:49 | disposition home or self-care (01) ==
LOC: ANHWOC 12:20
PROVIDERS: PCP Family Medicine; Visit Provider Physician Assistant Medical
DX: Z98.890 Other specified postprocedural states (principal); Z48.01 Encounter for change or removal of surgical wound dressing
CPT/HCPCS: 99213; G0463

== ENCOUNTER 2025-04-11 07:13 | Emergency (ER) | payer MEDICARE, SELFPAY ==
--- NOTE | ~2025-04-11 | CT_ITS ---
EXAMINATION: CT abdomen pelvis w con DATE: 04/11/2025 09:14 INDICATION: Abdominal pain. TECHNIQUE: Computed tomography (CT) of the abdomen and pelvis was performed with 100 mL Omnipaque 350 intravenous contrast. Automated exposure control and iterative reconstruction technique were employed. The dose-length product was 335.52 mGy-cm. COMPARISON: CT abdomen and pelvis 02/13/2024 FINDINGS: The visualized portions of the lung bases demonstrate mild atelectasis. No pleural effusion. The heart size is normal. No pericardial effusion. There is a small sliding hiatal hernia. The gallbladder, liver, spleen, pancreas, and adrenal glands are normal. There is cortical thinning of the kidneys. There are cysts in left kidney measuring up to 6 mm. 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 There is a parastomal hernia containing nonobstructed small bowel. There are multiple dilated loops of small bowel with transition point in the mid abdomen. There is a small volume of pelvic ascites. There are no pathologically enlarged lymph nodes. There is severe lumbar spondylosis. IMPRESSION: 1. Small bowel obstruction with transition point in the mid abdomen. 2. Parastomal hernia containing nonobstructed small bowel. 3. Small volume of pelvic ascites. Reviewed, dictated and finalized at location E.
[2025-04-11 07:23] VITALS: BP 168/95; PULSE 82; RESP 20; TEMP 36.7; O2SAT 100
--- NOTE | 2025-04-11 07:33 | ED_ITS ---
HPI - General Adult General Chief complaint: Nausea/Vomiting/Diarrhea Stated complaint: n/v Time Seen by Provider: 04/11/25 07:17 History of Present Illness HPI narrative: 84-year-old female presented to the emergency department for evaluation for cyclic nausea and vomiting. Patient reports she has had some cough and congestion over the last few days. Patient did have some indigestion this morning that then progressed into her cyclic vomiting. Patient does have a prior history of bladder cancer and did have prior radiation. Patient is unsure of why she has cyclic vomiting but patient does follow-up with GI at [facility]. Patient states typically Zofran, Compazine and lorazepam will help with her symptoms. Patient did try Zofran x2 at home but this did not help. Patient has a prior history of ID as well. Related Data Home Medications ?Medication ?Instructions ?Recorded ?Confirmed ?Last Taken ?Type lorazepam 0.5 mg tablet 0.5 mg PO DAILY PRN Anxiety 02/23/21 12/21/24 02/22/21 21:00 History biotin 10,000 mcg capsule 10,000 mcg PO DAILY 03/05/23 12/21/24 Unknown History cholecalciferol (vitamin D3) 25 25 mcg PO DAILY 12/21/24 Unknown History mcg (1,000 unit) capsule coenzyme Q10 100 mg capsule 200 mg PO DAILY 03/05/23 0 12/21/24 Unknown History (CoQ-10) levocarnitine 500 mg capsule 500 mg PO DAILY 03/05/23 12/21/24 Unknown History (L-Carnitine) prochlorperazine 25 mg rectal 25 mg RECTAL Q12H PRN Na usea 03/05/23 12/21/24 Unknown History suppository prochlorperazine maleate 10 mg 10 mg PO Q6H PRN Nausea 03/05/23 12/21/24 Unknown History tablet zolpidem 10 mg tablet (Ambien) See Rx Instructions .Ro [place] 03/05/23 12/21/24 Unknown History .COMPLEX PRN insomnia nortriptyline 10 mg capsule 10 mg PO DAILY 12/04/24 Unknown History Allergies Allergy/AdvReac Type Severity Reaction Status Date / Time levofloxacin AdvReac Unknown Nausea and Verified 04/11/25 07:39 Vomiting polymyxin B AdvReac Unknown Nausea and Verified 04/11/25 07:39 Vomiting Sulfa (Sulfonamide AdvReac Unknown Nausea and Verified 04/11/25 07:39 Antibiotics) Vomiting trimethoprim AdvReac Unknown Nausea and Verified 04/11/25 07:39 Vomiting amoxicillin (From Augmentin) AdvReac Vomiting Verified 04/11/25 07:39 clavulanic acid (From AdvReac Vomiting Verified 04/11/25 07:39 Augmentin) Review of Systems 2 Review of Systems: All systems reviewed & are unremarkable except as noted in HPI and below [facility] Past Medical History Medical History Cyclical vomiting History of ID (myocardial infarction) Personal history of antineoplastic chemotherapy History of small bowel obstruction History of basal cell carcinoma Transitional cell carcinoma of bladder Diagnosed in 1999, status post radical cystoscopy with ileal conduit, chemotherapy, and radiation. She is followed by Dr. Zan Alejandro at [facility]. CT of the abdomen and pelvis done at annual visit on 06/11/2019 showed no evidence of recurrence or metastatic disease. Primary squamous cell carcinoma of urethra Diagnosed in 1999, status post radical cystoscopy with ileal conduit, chemotherapy, and radiation. She is followed by Dr. Zan Alejandro at [facility]. CT of the abdomen and pelvis done at annual visit on 06/11/2019 showed no evidence of recurrence or metastatic disease. Hypertension Chronic insomnia HLD (hyperlipidemia) With statin intolerance. Cardiomyopathy due to hypertension, without heart failure Surgical History Surgical History History of urostomy H/O exploratory laparotomy Approximately 2007 with adhesiolysis and shona stomal hernia repair History of partial thyroidectomy 1976, benign mass. History of hernia repair Exploratory laparotomy with extensive adhesiolysis and peristomal hernia repair in October of 2007. History of total cystectomy For squamous cell carcinoma of the urethra and node positive transitional cell carcinoma of the bladder in 1999. Status post surgical removal of malignant neoplasm of skin Basal cell carcinoma. History of ileal conduit For squamous cell carcinoma of the urethra and noted positive transitional cell carcinoma of the bladder. Node positive with lymph node dissection during surgery. Family History Family History Father Family history of diabetes mellitus in first degree relative Family history of coronary artery disease Mother Family history of coronary artery disease Cerebrovascular accident Sibling No problems noted. Other Diabetes mellitus Family history of cardiovascular disease Social History Social History Social History: The patient lives in [place], [place]. She designates her as her surrogate decision maker and she wishes to be a full code. She is a former smoker and quit in 1998 or 1999. Recovering alcoholic, she has abstained since the . No drug abuse. Her primary care provider is Dr. Clarence Whitley. 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 HEAD: normocephalic, atraumatic. EYES: PERRLA/EOMI, conjunctivae clear. NOSE: Normal no drainage EARS:TMS clear with good light reflex. THROAT: Pharynx clear, no exudate. NECK: Supple. No adenopathy, no masses. RESPIRATORY: Airway patent, respirations nonlabored. Clear to auscultation bilaterally, no rales, rhonchi, wheezing. CARDIOVASCULAR: Regular rate and rhythm without murmurs rubs or gallops. ABDOMINAL: Diffuse abdominal tenderness to palpation MUSCULOSKELETAL: Moves all extremities. Strength/ROM intact, No edema, No calf tenderness. NEURO: Alert. Cranial nerves II through XII intact. Good gait. Good coordination SKIN: Warm, dry. Normal Color Course Vital Signs Vital signs: Vital Signs Temperature 98.0 F 04/11/25 07:23 Pulse Rate 82 04/11/25 07:23 Respiratory Rate 20 04/11/25 07:23 Blood Pressure 168/95 H 04/11/25 07:23 Pulse Oximetry 100 04/11/25 07:23 Oxygen Delivery Room Air 04/11/25 07:23 Temperature 98.0 F 04/11/25 07:23 Pulse Rate 88 04/11/25 10:39 Respiratory Rate 19 04/11/25 10:39 Blood Pressure 123/66 04/11/25 10:39 Pulse Oximetry 100 04/11/25 10:39 Oxygen Delivery Room Air 04/11/25 07:23 Medical Decision Making MDM Narrative Medical decision making narrative: 84-year-old female presents emergency department for evaluation for worsening abdominal pain and concern for cyclic vomiting. Patient was treated with Reglan, IV Zofran and IV lactated Ringer's and felt that this helped with her symptoms. Patient was also having some abdominal pain so she was treated with additional IV Toradol. Patient does have a urinary tract infection and patient was treated with IV Rocephin. Patient's CT scan does show possibility of a small-bowel obstruction. Patient states this is a common finding on her CT scans. Patient states she does feel improved and patient is requesting to be discharged home. Patient family were offered admission but patient states that she does prefer to be discharged. Patient will be started on additional Keflex for home and patient was advised to follow a clear liquid diet for the next few days. Patient does have Compazine, Zofran and lorazepam at home for nausea. Patient was also educated on reasons to return to the emergency department. All questions concerns were addressed. Differential Diagnosis Differential Diagnosis: UTI, colitis, diverticulitis, gastroparesis, cyclic vomiting, UTI, bowel obstruction Vital Signs Vital Signs: Vital Signs Temperature 98.0 F 04/11/25 07:23 Pulse Rate 82 04/11/25 07:23 Respiratory Rate 20 04/11/25 07:23 Blood Pressure 168/95 H 04/11/25 07:23 Pulse Oximetry 100 04/11/25 07:23 Oxygen Delivery Room Air 04/11/25 07:23 Temperature 98.0 F 04/11/25 07:23 Pulse Rate 88 04/11/25 10:39 Respiratory Rate 19 04/11/25 10:39 Blood Pressure 123/66 04/11/25 10:39 Pulse Oximetry 100 04/11/25 10:39 Oxygen Delivery Room Air 04/11/25 07:23 Lab Data Lab results reviewed: Yes I reviewed the patient's lab results. 04/11/25 07:38 04/11/25 07:38 Labs: Lab Results 04/11/25 Range/Units 07:38 WBC 6.4 (4.5-10.0) K/mm3 RBC 4.91 (4.2-5.4) M/mm3 Hgb 14.6 (12.0-15.0) g/dL Hct 45.5 (37.0-47.0) % MCV 92.7 (80-100) fl MCH 29.7 (26-34) pg MCHC 32.1 (32-36) g/dl RDW 12.3 (11.5-14.5) % Plt Count 174 (150-375) k/mm3 MPV 10.4 (7.4-10.4) fl Immature Gran % (Auto) 0.8 H (0-0.5) % Neut % (Auto) 88.3 H (45.5-73.1) % Lymph % (Auto) 5.5 L (18.3-44.2) % Hampton % (Auto) 4.9 (2.6-8.5) % Eos % (Auto) 0.2 (0-4.4) % Baso % (Auto) 0.3 (0.2-1.2) % Lymph # (Auto) 0.35 L (0.9-3.2) K/mm3 Hampton # (Auto) 0.3 (0.1-0.6) K/mm3 Eos # (Auto) 0.0 (0-0.3) K/mm3 Baso # (Auto) 0.0 (0.0-0.1) K/mm3 Abs Immat Gran (auto) 0.05 H (0.00-0.031) K/mm3 Absolute Neuts (auto) 5.7 (1.3-6.7) K/mm3 Absolute Nucleated RBC 0.000 (0.0-0.012) K/mm3 Nucleated RBC % 0.0 (0.0-0.2) % Sodium 136 L (137-145) mmol/L Potassium 3.7 (3.4-5.0) mmol/L Chloride 102 (98-107) mmol/L Carbon Dioxide 27 (22-30) mmol/L Anion Gap 7 (4-12) mmol/L BUN 21 H (7-17) mg/dL Creatinine 0.67 L (0.7-1.0) mg/dL Estim Creat Clear Calc 52 ml/min Estimated GFR > 60 (59 - ) Glucose 137 H (65-110) mg/dL Lactic Acid 1.4 (0.7-2.0) mmol/L Calcium 9.8 (8.4-10.2) mg/dL Total Bilirubin 0.8 (0.2-1.3) mg/dL AST 28 (14-36) U/L ALT 17 (6-35) U/L Alkaline Phosphatase 125 (38-126) U/L Total Protein 7.2 (6.3-8.2) g/dL Albumin 4.3 (3.5-5.1) g/dL Lipase 74 (23-300) U/L Urine Color Yellow (Yellow) Urine Appearance Turbid H (Clear) Urine pH >=9.0 H (5.0-9.0) Ur Specific Orange 1.012 (1.001-1.035) Urine Protein 1+ H (Negative) mg/dL Urine Glucose (UA) Negative (Negative) mg/dL Urine Ketones Trace H (Negative) mg/dL Ur Blood (Man) Trace (Negative) Urine Nitrate Negative (Negative) Urine Bilirubin Negative (Negative) Urine Urobilinogen 0.2 (<2.0) mg/dL Add Ur Microanalysis Reviewed Leukocyte Esterase Rfl Negative (Negative) LEXI/UL Urine RBC 0-2 (0-2) /hpf Urine WBC 21-50 H (0-3) /hpf Ur Squamous Epith Cells Occasional (Few) /hpf Urine Bacteria 1+ H /hpf Urine Casts 3-5 Urine Mucus Present /lpf Imaging Data Radiologist's impression: Impressions Abdomen/Pelvis CT 04/11/25 09:16 IMPRESSION: 1. Small bowel obstruction with transition point in the mid abdomen. 2. Parastomal hernia containing nonobstructed small bowel. 3. Small volume of pelvic ascites. Discharge Plan Discharge Clinical Impression: Acute UTI, Cyclical vomiting, Abdominal pain Patient Disposition: Home Condition: Stable Instructions: Antibiotic Form, Urinary Tract Infection in Women (DC), Clear Liquid Diet (ED), Abdominal Pain (ED) Additional Instructions: Your CT scan showed a possible small bowel obstruction. You were offered admission but you preferred to be discharged home. I do recommend follow a clear liquid diet for the next few days. Your also being started on antibiotics for a urinary tract infection. Continue to take your home anti emetics as directed. Continue have close follow-up with your physicians as outpatient. If you have any worsening symptoms please call or return to the emergency department. Patient Language: Anguillan Prescriptions: New cephalexin 500 mg capsule 500 mg PO Q8H 7 Days Qty: 21 0RF No Action metronidazole [MetroCream] 0.75 % cream 1 applic topical DAILY Qty: 45 0RF calcium carbonate [Calcium 600] 600 mg calcium (1,500 mg) tablet 600 mg PO DAILY Qty: 30 0RF nystatin-triamcinolone 100,000-0.1 unit/g-% cream 1 applic topical BID Qty: 60 1RF prochlorperazine maleate 10 mg Tablet 10 mg PO Q6H PRN (Reason: Nausea) prochlorperazine 25 mg Suppository 25 mg RECTAL Q12H PRN (Reason: Nausea) biotin 10,000 mcg Capsule 10,000 mcg PO DAILY cholecalciferol (vitamin D3) 25 mcg (1,000 unit) Capsule 25 mcg PO DAILY coenzyme Q10 [CoQ-10] 100 mg Capsule 200 mg PO DAILY L-Carnitine 500 mg Capsule 500 mg PO DAILY Rx Instructions: must administer with a meal/food zolpidem [Ambien] 10 mg tablet See Rx Instructions .ROUTE .COMPLEX PRN (Reason: insomnia) Rx Instructions: 1/4 TAB lorazepam 0.5 mg tablet 0.5 mg PO DAILY PRN (Reason: Anxiety) Patient Comments: pt states she usually only takes a few a month Rx Instructions: daily as needed for anxiety or nausea nortriptyline 10 mg capsule 10 mg PO DAILY fosinopril 10 mg tablet 5 mg PO DAILY Qty: 45 1RF sertraline 50 mg tablet 50 mg PO DAILY Qty: 90 1RF Follow-up/Referrals: Clarence Whitley MD [Primary Care Provider, Family Practice]
[2025-04-11] MEDS: METOCLOPRAMIDE HCL INJ 10 MG/2 ML VIAL IV PUSH (07:40)
[2025-04-11] MEDS: LACTATED RINGERS 1,000 ML 999 ML IV CONT (07:40)
[2025-04-11] MEDS: ONDANSETRON INJ 4 MG/2 ML VIAL IV PUSH (07:40)
--- OUTSIDE RECORDS SUMMARY | 2025-04-11 07:55 | XMS_ITS ---
Author Organization [facility] [address] Address [address] [place] [address] Care Team Providers Care Lead Tinner Name Role Phone Clarence Whitley MD Primary Care Provider Tejinder Montoya DO Unavailable [phone] Active Problems Problem Noted Date Diagnosed Date Dizziness 04/30/2023 Nonrheumatic tricuspid valve regurgitation 12/03 Age-related osteoporosis wit hout current pathological fracture 08/20/2022 Mixed hyperlipidemia 12/14/2021 Hx of colonic polyp 08/30/2020 Overview (08/30/2020): Added automatically from request for surgery [id number] 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 [...] Drug intolerance 03/14/2016 Overview (10/26/2016): Statin intolerance Intestinal obstruction 03/14/2016 Overview (10/26/2016): Transient bowel obstruction Benign hypertension 03/14/2016 Overview (10/26/2016): HTN (hypertension), benign Parastomal hernia 05/30/2015 Indigestion 04/20/2014 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 Other Current Plans Zoledronic Acid (Reclast) Infusion* Plan Start Date:04/15/2024 Plan Provider:Kuliwnder Collado MD Linked Problems Age-related osteoporosis wit hout current pathological fracture Treatment Medications No medications scheduled. Past Treatment and Therapy Plans Lifetime Dose Tracking * Chemical Lifetime Dose Automatic Entry Manual Entr y DLP 494 mGycm 494 mGycm 0 mGycm Resolved Problems Problem Noted Date Diagnosed Date Resolved Date Cardiomyopathy 03/14/2016 09/24/2024 Overview (10/26/2016): Cardiomyopathy Dyslipidemia 03/14/2016 04/30/2023 Overview (10/26/2016): Dyslipidemia Feces contents abnormal 09/30/201204/21
--- OUTSIDE RECORDS SUMMARY | 2025-04-11 07:55 | XMS_ITS | Clinical Summary ---
Author Organization [facility] [address] Address [address] [place] [address] Care Team Providers Care Broadband Technician Name Role Phone Clarence Whitley MD Primary Care Provider Tejinder Montoya DO Unavailable [phone] Allergies Active Allergy Reactions Criticality Noted Date Comments Polymyxin B Sulf-Trimethoprim Swelling Medium 10/18/2016 Cycuxgf-Wne-Tnl Reductase Inhibitors Other (See comments) Low Muscle [...] Take 1 tablet by mouth daily. Active acidophilus-pecti n, citrus 100 million cell-10 mg capsule Take by mouth Activ e lidocaine-hydroco rtisone-aloe 3-2.5 % (7 gram) kit Apply to rectum bid/prn 1 each 3 01/07/20 21 Active coenzyme Q10 10 mg capsule Take 1 capsule (10 mg total) by mouth daily Active sertraline (ZOLOFT) 50 mg tablet Take 1.5 tablets (75 mg total) by mouth daily 45 tablet 6 08/20/19 23 Active Additional Information Patient taking differently: 50 mgoral Daily, Reported on 03/25/2025 biotin 10 mg tablet Active LORazepam (ATIVAN) 0.5 mg tablet Take 1 tablet (0.5 mg total) by mouth daily as needed for anxiety 30 tablet 1 01/17/20 23 Active prochlorperazine (COMPAZINE) 25 mg suppository Insert 1 suppository (25 mg total) into the rectum daily as needed for nausea or vomiting 12 suppository 3 10/17/19 24 Active zolpidem (AMBIEN) 10 mg tabletIndications :Sleep-Onset Insomnia Take 2.5 mg by mouth nightly as needed for sleep Active hydrocortisone (ANUSOL-HC) 2.5 % rectal cream Insert into the rectum 2 (two) times a day 30 g 1 01/24/20 24 Active prochlorperazine (COMPAZINE) 10 mg tablet Take 1 tablet (10 mg total) by mouth 3 (three) times a day as needed for nausea or vomiting 60 tablet 3 02/05/20 24 Active ondansetron ODT (Zofran ODT) 4 mg disintegrating tablet Take 1 tablet (4 mg total) by mouth 3 (three) times a day as needed for nausea or vomiting 60 tablet 1 07/27/19 25 Active cholecalciferol (VITAMIN D-3) 2000 unit tablet TAKE 1 TABLET BY MOUTH EVERY DAY 90 tablet 3 10/14/19 25 Active omeprazole (PriLOSEC) 20 mg capsule Take 1 capsule (20 mg total) by mouth daily 01/01/20 25 Active nortriptyline (PAMELOR) 10 mg capsule Take 1 capsule (10 mg) total at bedtime 30 capsule 6 03/24/20 25 Active nortriptyline (PAMELOR) 10 mg capsule Take 1 capsule (10 mg) total at bedtime 30 capsule 3 11/24/19 25 025 Disconti nued(Reo rder) Active Problems Problem Noted Date Diagnosed Date Dizziness 04/30/2023 Nonrheumatic tricuspid valve regurgitation 12/03 Age-related osteoporosis wit hout current pathological fracture 08/20/2022 Mixed hyperlipidemia 12/14/2021 Hx of colonic polyp 08/30/2020 Overview (08/30/2020): Added automatically from request for surgery [id number] 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 [...] Overview (10/26/2016): Dyslipidemia Feces contents abnormal 09/30/201204/21 Encounters Date Type Department Care Team Description 04/08/2025 Results Follow-Up [facility] On[facility] [address] [place] [phone] Tejinder Montoya DO IgG 03/25/2025 3:30 PM CDT Office Visit [facility] [address] [place] [address] Prisca Kilgore NP Fatigue, unspecified type; H/O cardiomyopathy; QT prolongation; Mixed hyperlipidemia; Statin myopathy 03/18/2025 10:15 AM CDT Office Visit [facility] [address] [place] [phone] Tejinder Montoya DO Selective deficiency of IgG (HCC) (Primary Dx) 03/18/2025 9:30 AM CDT Lab [facility] [address] [place] [id number] Selective deficiency of IgG (HCC) 02/08/2025 9:46 AM CDT - 02/08/2025 11:59 PM CDT Hospital Encounter [facility] Medical Office [facility] [address] [place] [address] Mass of left breast on mammogram Discharge Disposition: Discharge to home or self care 02/08/2025 9:45 AM CDT - 02/08/2025 11:59 PM CDT Hospital Encounter [facility] Medical Office [facility] [address] [place] [address] Mass of left breast on mammogram; Other abnormal and inconclusive findings on diagnostic imaging of breast Discharge Disposition: Discharge to home or self care from Last 3 Months Immunizations Immunization Administration Dates Next Due Flucelvax Influenza Quad [...] History Medical History Date Comments Hypertension Cardiomyopathy Paroxysmal atrial tachycardia Hyperlipidemia Fractured nose UTI (urinary tract infection) Menopause syndrome Osteopenia Coronary artery disease Depression Migraines Osteoarthritis Anemia Colon polyp Cancer (HCC) bladder and uret heral diagnosed in 09/1999 History of transfusion Covid Bladder cancer (HCC) Urethral cancer Myocardial infarction (HCC) Anxiety Heart disease 2016 [...] Scoliosis Neg Hx Relation Name Status Comments Brother Jose Father Lior (Age 86) Mother Zahra (Age 92) Mother's Brother Other Social History Tobacco Use Types Packs/Day Years Used Date Smoking Tobacco: Former Cigarettes 0.1 39 Q uit: 08/22/1998 Smokeless Tobacco: Never Alcohol Use Standard Drinks/Week Comments No 0 (1 standard drink = 0.6 oz pur e alcohol) never AUDIT-C Answer Date Recorded Frequency of Alcohol Consumption Not on file 03/19/2024 Q2: How many drinks containi ng alcohol do you have on a typical day when you are drinking? Patient does not drink Frequency of Binge Drinking Not on file 02/20 Personal Safety Answer Date Recorded Have you ever been in or are you currently in a harmful physical or emotional relationship or is someone making you feel afraid or unsafe? Denies 09/26/2023 Comments No Sex and Gender Information Value Date Recorded Sex Assigned at Female 09/23/2018 8:59 AM LIBRARY INFORMATION TECHNICIAN Legal Sex Female 8:28 PM LIBRARY INFORMATION TECHNICIAN Gender Identity Female 09/23/2018 8:59 AM LIBRARY INFORMATION TECHNICIAN Sexual Orientation Not on file Occupation Industry Job Start Date Job End Date retired Not on file Not on file Not on file Obstetrics History Para Term AB IAB SAB Ectopic Multiple Livin g Live Births 4 4 4 Date Outcome GA Total Labor Labor//3rd Weight Sex Type Anes PTL Arianna A1 A5 Name Clin Term Term Term Term Last Filed Vital Signs Vital Sign Reading Time Taken Comments Blood Pressure 112/60 03/25/2025 3:23 PM CDT Pulse 70 03/25/2025 3:23 PM CDT Temperature 36.4 C (97.6 F) 03/18/2025 10:18 AM CDT Respiratory Rate 16 03/25/2025 3:23 PM CDT Oxygen Saturation 97% 03/25/2025 3:23 PM CDT Inhaled Oxygen Concentration - - Weight 65.3 kg (144 lb) 03/25/2025 3:23 PM CDT Height 167.6 cm (5' 6) 03/25/2025 3:23 PM CDT Body Mass Index 23.24 03/25/2025 3:23 PM CDT Plan of Treatment Health Maintenance Due Date Last Done Comments Depression Screening 1940 Hepatitis B Screening 1958 Well Visit 65+ 11/02/2007 Fall Risk Assessment 09/25/2024 09/26/2023 Covid-19 Vaccine (2024-08 6 season) 2025 05/18/2022, 12/28/2021, 09/20/2020, Additional history exists Influenza Vaccine (#1) 2025 , 03/16/2020, 05/07/2019, Additional history exists Osteoporosis Screening-Bone Density Scan 11/16/2026 11/16/2024, 10/21/2023, 08/20/2022, Additional history exists DTaP/Tdap/Td Vaccine (2 - Td or Tdap) 01/31/2030 02/01/2020 Pneumococcal vaccine 65+ Completed 07/31/2015, 03/22 Zoster Vaccine Completed 07/03/2018, 03/22, 04/08/2018, Additional history exists Procedures Procedure Name Priority Date/Time Associated Diagnosis Comments EGFR Routine 03/18/2025 9:57 AM CDT Selective deficiency of IgG (HCC) DIFFERENTIAL AUTO Routine 03/18/2025 9:5 7 AM CDT Selective deficiency of IgG (HCC) CBC WITH AUTO DIFFERENTIAL Routine 03/18/2025 9:57 AM CDT Selective deficiency of IgG (HCC) COMPREHENSIVE METABOLIC PANEL Routine 03/18/2025 9:57 AM CDT Selective deficiency of IgG (HCC) IGG Routine 03/18/2025 9:57 AM CDT Selective deficiency of IgG (HCC) US BREAST LEFT LIMITED Schedule Routine, Read Routine (OP Routine) 02/08/2025 10:34 AM CDT Mass of left breast on mammogram DIAGNOSTIC MAMMOGRAM LEFT [place] Schedule Routine, Read Routine (OP Routine) 02/08/2025 10:06 AM CDT Mass of left breast on mammogram Other abnormal and inconclusive findings on diagnostic imaging of breast DEXA TBS AXIAL SKELETON BONE DENSITY 1 OR MORE SITES Schedule Routine, Read Routine (OP Routine) 11/16/2024 10:21 AM CDT Age-related osteoporosis without current pathological fracture Vitamin D insufficiency from Last 3 Months or Most Recently Relevant to Health Maintenance Results * eGFR (03/18/2025 9:57 AM CDT) eGFR 90 >=60 mL/min/1. 73 m2 Comment: Interpretive Data Reference Interval Normal >/= 90 mL/min/1.73m2 Mildly decreased* 60 - 89 mL/min/1.73m2 Mildly to moderately decreased 45 - 59 mL/min/1.73m2 Moderately to severely decreased 30 - 44 mL/min/1.73m2 Severely decreased 15 - 29 mL/min/1.73m2 Kidney Failure < 15 mL/min/1.73m2 *Relative to young adult level Estimated glomerular filtration rate is determined by the 2020 CKD-EPI equation recommended by the National Kidney Foundation (A Unifying Approach to GFR Estimation: Recommendations of the NKF-ASK Task Force on Reassessing the Inclusion of Race in Diagnosing Kidney Disease, JASN 2020). The CKD-EPI equation should not be used for patients with unstable renal function and has not been validated in children and those over 70. Current interpretive data was last reviewed 2021. Testing performed by: [address] [address] Blood 03/18/2025 9:57 AM CDT 03/18/2025 9:59 AM CDT Tejinder Montoya DO LAB BLOOD ORDERABLES Final R esult [facility] [address] [facility] Department [place] [address] * (ABNORMAL) Differential, auto (03/18/2025 9:57 AM CDT) Neutrophil abs 2.49 1.50 - 6.50 K/cumm Comment:Testing performed by : [address] [address] Imm gran abs 0.02 0.00 - 0.10 K/cumm NANCY Comment:Testing performed by : [address] [address] Lymphocyte abs 0.59(L) 0.80 - 3.30 K/cumm NANCY Comment:Testing performed by : [address] [address] Monocyte abs 0.33 0.20 - 0.80 K/cumm NANCY Comment:Testing performed by : [address] [address] Eosinophil abs 0.08 0.00 - 0.50 K/cumm [facility] Comment:Testing performed by : [address] [address] Basophil abs 0.03 0.00 - 0.10 K/cumm [facility] Comment:Testing performed by : [address] [address] Neutrophil pct 70.3 % [facility] Comment: Interpretive Data Percent cell count reference ranges are not reported, since discordance with absolute values may lead to misinterpretation of CBC data. Current Interpretive Data was last revised on 2017. Testing performed by: [address] [address] Imm gran pct 0.6 % [facility] Comment: Interpretive Data Percent cell count reference ranges are not reported, since discordance with absolute values may lead to misinterpretation of CBC data. Current Interpretive Data was last revised on 2017. Testing performed by: [address] [address] Lymphocyte pct 16.7 % [facility] Comment: Interpretive Data Percent cell count reference ranges are not reported, since discordance with absolute values may lead to misinterpretation of CBC data. Current Interpretive Data was last revised on 2017. Testing performed by: [address] [address] Monocyte pct 9.3 % [facility] Comment: Interpretive Data Percent cell count reference ranges are not reported, since discordance with absolute values may lead to misinterpretation of CBC data. Current Interpretive Data was last revised on 2017. Testing performed by: [address] [address] Eosinophil pct 2.3 % [facility] Comment: Interpretive Data Percent cell count reference ranges are not reported, since discordance with absolute values may lead to misinterpretation of CBC data. Current Interpretive Data was last revised on 2017. Testing performed by: [address] [address] Basophil pct 0.8 % [facility] Comment: Interpretive Data Percent cell count reference ranges are not reported, since discordance with absolute values may lead to misinterpretation of CBC data. Current Interpretive Data was last revised on 2017. Testing performed by: [address] [address] Blood 03/18/2025 9:57 AM CDT 03/18/2025 9:59 AM CDT Tejinder Montoya DO LAB BLOOD ORDERABLES Final R esult N[facility]Y [address] [facility] Department [place] [address] * (ABNORMAL) CBC with auto differential (03/18/2025 9:57 AM CDT) WBC 3.54(L) 3.80 - 9.90 K/cumm Comment:Testing performed by : [address] [address] Hgb 12.4 11.9 - 15.5 g/dL NANCY Comment:Testing performed by : [address] [address] Hct 37.6 35.6 - 45.5 % NANCY Comment:Testing performed by : [address] [address] Plt 169 150 - 400 K/cumm NANCY Comment:Testing performed by : [address] [address] MPV 10.2 9.1 - 12.3 fL NANCY Comment:Testing performed by : [address] [address] RBC 4.10 3.90 - 5.20 M/cumm NANCY Comment:Testing performed by : [address] [address] MCV 91.7 81.3 - 96.4 fL NANCY Comment:Testing performed by : [address] [address] MCH 30.2 27.1 - 33.3 pg NANCY Comment:Testing performed by : [address], [address] MCHC 33.0 32.3 - 35.7 g/dL NANCY CHEN Comment:Testing performed by : [address] [address] RDW CV 12.7 11.1 - 14.9 % NANCY CHEN Comment:Testing performed by : [address] [address] RDW SD 42.4 35.7 - 48.1 fL NANCY Comment:Testing performed by : [address] [address] NRBC abs 0.00 0.00 - 0.01 K/cumm NANCY Comment:Testing performed by : [address] [address] ANC Prelim 2.49 1.50 - 6.50 K/cumm NANCY Comment: Interpretive Data The rapid ANC is a preliminary automated count and may vary from the final ANC (Neut Abs) reported in the WBC differential that follows. Current interpretive data was last revised 2024. Testing performed by: [address] [address] Blood 03/18/2025 9:57 AM CDT 03/18/2025 9:59 AM CDT Tejinder Montoya DO LAB BLOOD ORDERABLES Final R esult Performing Organization Address [facility] de Phone Number [place] [id number] [facility] [place] [address] * (ABNORMAL) IgG (03/18/2025 9:57 AM CDT) Immunoglobulin G 455(L) 700 - 1,600 mg/dL Blood 03/18/2025 9:57 AM CDT 03/18/2025 12:36 PM CDT Tejinder Montoya DO LAB BLOOD ORDERABLES Final R esult Performing Organization Address [facility] Co de Phone Number [place] [phone] [facility] [place] [address] * (ABNORMAL) Comprehensive metabolic panel (03/18/2025 9:57 AM CDT) Sodium 141 135 - 145 mmol/L Comment:Testing performed by : [address] [address] Potassium, pl 4.6 3.3 - 4.9 mmol/L NANCY Comment:Testing performed by : [address] [address] Chloride 104 97 - 110 mmol/L NANCY Comment:Testing performed by : [address] [address] CO2 27 22 - 32 mmol/L NANCY Comment:Testing performed by : [address] [address] Anion gap 10 2 - 15 mmol/L NANCY Comment:Testing performed by : [address] [address] BUN 17 6 - 25 mg/dL NANCY Comment:Testing performed by : [address] [address] Creatinine 0.60 0.60 - 1.10 mg/dL NANCY Comment:Testing performed by : [address] [address] Glucose 92 70 - 199 mg/dL NANCY Comment: Interpretive Data Fasting glucose >/= 126 mg/dl is diagnostic for diabetes. Fasting is defined as no caloric intake for at least 8 hours. Fasting glucose between 100 mg/dl to 125 mg/dl is diagnostic of prediabetes. In a patient with classic symptoms of hyperglycemia or hyperglycemic crisis, a random glucose >/= 200 mg/dl is diagnostic for diabetes. In the absence of unequivocal hyperglycemia, results should be confirmed by repeat testing. The classification and Diagnosis of Diabetes Diabetes Care 202; 46: S19-S40. Current interpretive data was last revised 2022. Testing performed by: [address] [address] Calcium 9.3 8.5 - 10.3 mg/dL NANCY Comment:Testing performed by : [address] [address] Bilirubin, total 0.4 0.1 - 1.2 mg/dL NANCY Comment:Testing performed by : [address] [address] Protein, pl 6.1(L) 6.5 - 8.5 g/dL NANCY Comment:Testing performed by : [address] [address] Albumin 4.0 3.5 - 5.0 g/dL NANCY Comment:Testing performed by : [address] [address] Alk phos 94 40 - 130 Units/L NANCY Comment:Testing performed by : [address], [address] ALT 10 7 - 45 Units/L NANCY Comment:Testing performed by : [address], [address] AST 16 10 - 45 Units/L NANCY Comment:Testing performed by : [address], [address] Blood 03/18/2025 9:57 AM CDT 03/18/2025 9:59 AM CDT Tejinder Montoya DO LAB BLOOD ORDERABLES Final R esult NANCY [address] [facility] Department of Laboratories [place], [place] [id number] * US Breast Left Limited (02/08/2025 10:34 AM CDT) Anatomical Region Laterality Modality Breast Left Ultrasound 02/08/2025 6:23 PM CDT Impressions 02/08/2025 6:23 PM CDT No imaging findings to suggest malignancy are seen. The patient may return to screening mammography as per ACR guidelines. OVERALL FINAL ASSESSMENT: [id number] Electronically signed by: Beckie Posada M.D. Narrative 02/08/2025 6:23 PM CDT EXAMINATION: LEFT DIGITAL DIAGNOSTIC MAMMOGRAM AND DIGITAL BREAST TOMOSYNTHESIS; LEFT BREAST SONOGRAM HISTORY: Follow-up COMPARISON: Studies dating back to August 05. TECHNIQUE: Full field digital mammographic views of the left breast(s) were performed, including computer aided detection (CAD) and digital breast tomosynthesis (DBT). Directed ultrasound evaluation of the left breast(s) was performed. BREAST PARENCHYMAL COMPOSITION: There are scattered areas of fibroglandular density. MAMMOGRAM FINDINGS: The previously described focal asymmetry is not well seen on the current study. There are no new or suspicious masses. No suspicious calcifications are seen. There is no unexplained architectural distortion. There is no skin thickening seen. There are no mammographically abnormal lymph nodes seen in the axillae or elsewhere. ULTRASOUND FINDINGS: Sonography through the 9:00 position again demonstrates a C-shaped cyst, not significantly changed. This is considered benign. us Clarence Whitley MD IMG MAMMO PROCEDURES Fi nal Result * Diagnostic Mammogram Left [place] (02/08/2025 10:06 AM CDT) Anatomical Region Laterality Modality Breast Left Mammography 02/08/2025 6:23 PM CDT Impressions 02/08/2025 6:23 PM CDT No imaging findings to suggest malignancy are seen. The patient may return to screening mammography as per ACR guidelines. OVERALL FINAL ASSESSMENT: [id number] Electronically signed by: Beckei Posada M.D. Narrative 02/08/2025 6:23 PM CDT EXAMINATION: LEFT DIGITAL DIAGNOSTIC MAMMOGRAM AND DIGITAL BREAST TOMOSYNTHESIS; LEFT BREAST SONOGRAM HISTORY: Follow-up COMPARISON: Studies dating back to August 05. TECHNIQUE: Full field digital mammographic views of the left breast(s) were performed, including computer aided detection (CAD) and digital breast tomosynthesis (DBT). Directed ultrasound evaluation of the left breast(s) was performed. BREAST PARENCHYMAL COMPOSITION: There are scattered areas of fibroglandular density. MAMMOGRAM FINDINGS: The previously described focal asymmetry is not well seen on the current study. There are no new or suspicious masses. No suspicious calcifications are seen. There is no unexplained architectural distortion. There is no skin thickening seen. There are no mammographically abnormal lymph nodes seen in the axillae or elsewhere. ULTRASOUND FINDINGS: Sonography through the 9:00 position again demonstrates a C-shaped cyst, not significantly changed. This is considered benign. us Clarence Whitley MD IMG MAMMO PROCEDURES Fi nal Result * Dexa TBS Axial Skeleton Bone Density 1 or more sites (11/16/2024 10:21 AM CDT) Anatomical Region Laterality Modality Wrist, Body N/A Radiographic Carmen ging Narrative 11/16/2024 11:40 AM CDT Patient Name: Roxanne Zuniga Date of : 1940 Date of scan: 11/16/2024 Bone mineral density was performed on a [employer] Discovery Densitometer. Based on machine cross-calibration and precision studies the least significant changes of this densitometer is 0.024 g/cm2 at the spine, 0.020 g/cm2 at the total proximal femur, and 0.014g/cm2 at the forearm. HISTORY: This is a 84 y.o. postmenopausal female with a history of low bone mass and vitamin D deficiency. She reports that she quit smoking about 26 years ago. Her smoking use included cigarettes. She has a 3.8 pack-year smoking history. She has never used smokeless tobacco. Currently on treatment with calcium, vitamin D, and zoledronic acid (Reclast), previously treated with risedronate (Actonel), raloxifene (Evista), and hormone replacement therapy, and current complaint of back pain. INDICATIONS: Menopause status, treatment monitoring, vitamin D deficiency, and history of low bone mass. FINDINGS: BONE MINERAL DENSITY OF THE LUMBAR SPINE Bone Mineral Density (BMD) of the lumbar spine was measured from L1-L3 and the average density was calculated to be 0.983 gm/cm2. This corresponds to a T-score (standard deviations from the mean of young adults) of -0.3. When compared to the previous study of 10/21/2023 there has been a 0.041 gm/cm (4.4%) increase in bone density that is considered significant. BONE MINERAL DENSITY OF THE PROXIMAL FEMUR Bone Mineral Density (BMD) of the left hip total was found to be 0.735 gm/cm2. This corresponds to a T-score standard deviations from the mean of young adults of -1.7. Femoral neck is 0.591 gm/cm2 with a T-score (standard deviations from the mean of young adults) of -2.3. When compared to the previous study of 10/21/2023 there has been no significant changes in bone density. SUMMARY: Bone mineral density shows evidence of low bone mass at the proximal femur and moderately increased fracture risk (Osteopenia). There has been no significant changes in bone density since previous measurement. L4 excluded from bone mineral density analysis of the lumbar spine due to bone density being more than 1 standard deviation discrepant relative to one adjacent vertebra. Clinical correlation is recommended. The lumbar spine Trabecular Bone Score is 1.311 which suggests normal bone microarchitecture, compared to the general population. Final decisions [...] bone mineral density scan were prepared by Aicha Ledesma(Cedrick) RADHA who is accredited by the International Society of Clinical Densitometry. The overall patient assessment and scan interpretation were performed by Kulwinder Collado M.D. who is certified by the International Society of Clinical Densitometry. [id number] Leela Rodriguez [facility] DXA PROCEDURES Final Result from Last 3 Months or Most Recently Relevant to Health Maintenance Insurance AETNA MEDICARE AETNA MEDICARE AETNA MEDICARE Advance Directives For more information, please contact: [phone] * Full Code (Latest Code Status on File) Date Activated Date Inactivated Comments 09/26/2023 8:00 AM 09/26/2023 2:47 PM * Full Code Date Activated Date Inactivated Comments 09/07/2020 8:04 AM 09/07/2020 2:40 PM Care Teams Broadband Technician Relationship Specialty Start Date End Date Clarence Whitley MD [address] [place] [address] PCP - General 06/04/16 Tejinder Montoya DO [address] [facility] [address] [place] [address] Medical Oncologist/Creche Attendant Hematology and Oncology 06/01/20
--- OUTSIDE RECORDS SUMMARY | 2025-04-11 07:55 | XMS_ITS | Encounter Summary ---
Author Organization [facility] Address [address] [place] [address] Care Team Providers Care Grocery Caddy Name Role Phone Clarence Whitley MD Primary Care Provider [phone] Encounter Details Date Type Department Care Team (Late st Contact Info) Description 05/15/2024 Lab Requisition [facility] - DermPath Lab [address] [place] [id number] Sonu Durham MD [address] [place] [address] Social History Tobacco Use Types Packs/Day Years Used Date Smoking Tobacco: Former Smokeless Tobacco: Never Comments No Sex and Gender Information Value Date Recorded Sex Assigned at Not on file Legal Sex Female 9:14 AM CDT Gender Identity Not on file Sexual Orientation Not on file documented as of this encounter Plan of Treatment Not on file documented as of this encounter Procedures Procedure Name Priority Date/Time Associated Diagnosis Comments DERMATOPATHOLOGY Routine 05/13/2024 12:0 0 AM CDT documented in this encounter Results * DERMATOPATHOLOGY (05/13/2024 12:00 AM CDT) Case Report Dermatopathology Report Case: [id number] Authorizing Provider: Sonu Durham MD Collected: 05/13/2024 12:00 AM Ordering Location: [facility] Physician [facility] - Received: 05/15/2024 06:52 AM DermPath Lab Pathologist: Giulia Jones MD Specimen: Skin, left upper thigh 12:15 PM CDT DERMATOPATHOLOGY LABORATORY Final Diagnosis Specimen A. SKIN, left upper thigh: BENIGN VERRUCOUS KERATOSIS, INFLAMED, SUPERFICIAL PORTIONS OF (L82.1) 12:15 PM CDT DERMATOPATHOLOGY LABORATORY at 1215 CDT Clinical History ISK vs MM 12:15 PM [...] characteristic determined by the Dermatopathology Laboratory at [facility], directed by Dr. Michela Arreola. These tests need not be, and therefore are not, approved by the [place] Food and Drug Administration. The tests are used for clinical purposes. Billing Codes Specimen Charges Stain Charges 23619 1 12:15 PM CDT DERMATOPATHOLOGY LABORATORY Embedded Images 12:15 PM CDT DERMATOPATHOLOGY LABORATORY Pathology/Cytolog y TISSUE SPECIMEN FROM SKIN / Unknown 05/13/2024 05/15/2024 6:52 AM CDT us Sonu Durham MD LAB - PATHOLOGY/CYTOLOGY ORDERAB LES Final Result DERMATOPATHOLOGY LABORATORY [facility] - Department of Derm[facility] [address] [place] [address], [address] [phone] documented in this encounter Visit Diagnoses Not on filedocumented in this encounter Care Teams Grocery Caddy Relationship Specialty Start Date End Date Clarence Whitley MD [address] [place] [address] PCP - General Family Medicine 10/18/16 documented as of this encounter
--- OUTSIDE RECORDS SUMMARY | 2025-04-11 07:55 | XMS_ITS | Encounter Summary ---
Author Organization [facility] Address [address] [address] Care Team Providers Care Ware Tester Name Role Phone Clarence Whitley MD Primary Care Provider [phone] Encounter Details Date Type Department Care Team (Late st Contact Info) Description 05/30/2023 Lab Requisition [facility] - DermPath Lab [address] [place] [id number] Sonu Durham MD [address] [place] [address] Social History Tobacco Use Types [...] Comments DERMATOPATHOLOGY Routine 05/30/2023 12:0 0 AM MAIL CLERK BILLS documented in this encounter Results * DERMATOPATHOLOGY (05/30/2023 12:00 AM MAIL CLERK BILLS) Case Report Dermatopathology Report Case: [id number] Authorizing Provider: Sonu Durham MD Collected: 05/30/2023 12:00 AM Ordering Location: [facility] DermPath Lab Received: 05/30/2023 03:28 PM Pathologist: Claribel Sanchez MD Specimen: Skin, left index finger 3 1:56 PM [facility] DERMATOPATHOLOGY LABORATORY Final Diagnosis Specimen A. SKIN, left index finger: SEBORRHEIC KERATOSIS, MACULAR (L82.1) 3 1:56 PM [facility] DERMATOPATHOLOGY LABORATORY at 1356 MAIL CLERK BILLS Clinical History R/O Lentigo or Melanocytic Process 3 1:56 PM [facility] DERMATOPATHOLOGY LABORATORY Gross Description Specimen A: Received is one formalin filled container labeled with the patient's name and designated left index finger. The specimen consists of a shave biopsy measuring 10x3x1 mm. Jar 0. 3 1:56 PM [facility] DERMATOPATHOLOGY LABORATORY Microscopic Description Specimen A. SKIN, left index finger: Sections show a relatively broad, flat proliferation of small keratinocytes. The surface is gently papillated, and there is increased basilar pigmentation. 1:56 PM [facility] DERMATOPATHOLOGY LABORATORY Disclaimer An external and internal positive and negative controls are appropriate for the histochemical, immunohistochemical and immunofluorescence stain(s) in this case (if any), except where stated explicitly. The performance characteristics of the stain(s) cited in this report were developed and its performance characteristic determined by the Dermatopathology Laboratory at [facility], directed by Dr. Michela Arreola. These tests need not be, and therefore are not, approved by the [place] Food and Drug Administration. The tests are used for clinical purposes. Billing Codes Specimen Charges Stain Charges 94026 1 3 1:56 PM [facility] DERMATOPATHOLOGY LABORATORY Embedded Images 3 1:56 PM [facility] DERMATOPATHOLOGY LABORATORY Pathology/Cytolog y TISSUE SPECIMEN FROM SKIN / Unknown 05/30/2023 05/30/2023 3:28 PM [facility] Sonu Durham MD LAB - PATHOLOGY/CYTOLOGY ORDERAB LES Final Result DERMATOPATHOLOGY LABORATORY [facility] - Department of Dermatology [address], [address] [phone] documented in this encounter Visit Diagnoses Not on filedocumented in this encounter Care Teams Ware Tester Relationship Specialty Start Date End Date Clarence Whitley MD [address] [place] [address] PCP - General Family Medicine 10/18/16 documented as of this encounter
--- OUTSIDE RECORDS SUMMARY | 2025-04-11 07:55 | XMS_ITS | Encounter Summary ---
Author Organization [facility] Address [address] [place] [address] Phone Care Team Providers Care Ndt Inspector Name Role Phone Clarence Whitley MD Primary Care Provider Tejinder Montoya DO Unavailable [phone] Encounter Details Date Type Department Care Team (Late st Contact Info) Description 04/08/2025 Results Follow-Up [facility] Medicine Physicians [facility] Oncology [address] [phone] Tejinder Montoya DO [address] [facility] [address] [place] [address] IgG Social History Tobacco Use Types Packs/Day Years [...] Sex Assigned at Female 09/23/2018 8:59 AM GENETICS PHYSICIAN Legal Sex Female 8:28 PM GENETICS PHYSICIAN Gender Identity Female 09/23/2018 8:59 AM GENETICS PHYSICIAN Sexual Orientation Not on file Occupation Industry Job Start Date Job End Date retired Not on file Not on file Not on file documented as of this encounter Plan of Treatment Not on file documented as of this encounter Visit Diagnoses Not on filedocumented in this encounter Care Teams Ndt Inspector Relationship Specialty Start Date End Date Clarence Whitley MD [address] [place] [address] PCP - General 06/04/16 Tejinder Montoya DO [address] [place] [address] Medical Oncologist/[facility] 06/01/20 documented as of this encounter
--- OUTSIDE RECORDS SUMMARY | 2025-04-11 07:55 | XMS_ITS | Clinical Summary ---
Author Organization [facility] Address [address] [place] [address] Care Team Providers Care Employment Agency Manager Name Role Phone Clarence Whitley MD Primary Care Provider [phone] Source Comments [facility],non-owned Affiliates and Associated Physician Practices is amultiple site organization consisting of ambulatory clinics and hospital sitesin [place], [place], [place] and [place]. This disclosure is being madepursuant to the Care Everywhere program and may not contain all information available regarding this patient. Last updated 18.[facility] Allergies Active Allergy Reactions Criticality Noted Date Comments Polymyxin B-Trimethoprim Swelling 10/18/2016 Medications * Be aware that medications may not be up to date on this document. Alwaysverify current medications with the patient. FOSINOPRIL SODIUM PO Active Social History Tobacco Use Types Packs/Day Years [...] 12:30 PM CDT Height 168.9 cm (5' 6.5) 10/18/2016 12:30 PM CD T Body Mass [...] yrs (1 - 1-dose 75+ series) 2017 DEPRESSION SCREENING 07/22/2024 MEDICARE AWV CALENDAR YEAR 2024 COVID-19 VACCINE (1 - 2023-2 5 season) 2025 INFLUENZA VACCINE (#1) 2025 HEPATITIS B VACCINE Aged Out No longe r eligible based on patient's age to complete this topic HIB VACCINE Aged Out No longer eligi ble based on patient's age to complete this topic HPV VACCINE Aged Out No longer eligi ble based on patient's age to complete this topic MENINGOCOCCAL (Group B) VACC INE SHARED DECISION-MAKING Aged Out No longer eligibl e based on patient's age to complete this topic MENINGOCOCCAL GROUPS A/C/Y/W VACCINE Aged Out No longer eligible b ased on patient's age to complete this topic Insurance [employer] MEDICARE ADV [facility]IC[facility] Care Teams Employment Agency Manager Relationship Specialty Start Date End Date Clarence Whitley MD [address] [place] [id number] PCP - General Family Medicine 10/18/16
--- OUTSIDE RECORDS SUMMARY | 2025-04-11 07:55 | XMS_ITS | Clinical Summary ---
Author Organization [facility] Address [facility] [place] [address] Care Team Providers Care Oleomargarine Maker Name Role Phone Unavailable Primary Care Provider [...] Td Vaccines ( 1 - Tdap) 1961 Pneumococcal Vaccine: 50+ Ye ars (1 of 1 - PCV) 1992 Zoster Vaccines (1 of 2) 1992 Dexa Scan (General) 11/02/2007 RSV Immunization or 60+ Years (1 - 1-dose 75+ series) 2017 COVID-19 Vaccine (2023-2 5 season) 2025 Meningococcal B Vaccine Aged Out No l onger eligible based on patient's age to complete this topic Meningococcal Vaccine Aged Out No frank duyen eligible based on patient's age to complete this topic RSV Immunizations Under 20 Months Aged Out No longer eligible based on patient's age to complete this topic
[2025-04-11 07:56] LABS: Alanine Aminotransferase 17 U/L (6-35); Albumin Level 4.3 g/dL (3.5-5.1); Alkaline Phosphatase 125 U/L (38-126); Anion Gap 7 mmol/L (4-12); Aspartate Amino Transferase 28 U/L (14-36); Bilirubin,Total 0.8 mg/dL (0.2-1.3); Blood Urea Nitrogen 21 mg/dL (7-17); Calcium 9.8 mg/dL (8.4-10.2); Carbon Dioxide 27 mmol/L (22-30); Chloride 102 mmol/L (98-107); Estimated CRCL calculation 52 ml/min; Estimated Glomerular Filt Rate > 60; Glucose 137 mg/dL (65-110); Lipase 74 U/L (23-300); Potassium 3.7 mmol/L (3.4-5.0); Sodium 136 mmol/L (137-145); Total Protein 7.2 g/dL (6.3-8.2)
[2025-04-11 07:59] LABS: Hematocrit 45.5 % (37.0-47.0); Hemoglobin 14.6 g/dL (12.0-15.0); Immature Granulocyte Percent A 0.8 % (0-0.5); Lymphocytes Absolute Auto 0.35 K/mm3 (0.9-3.2); Mean Corpuscular HGB Conc 32.1 g/dl (32-36); Mean Corpuscular Hemoglobin 29.7 pg (26-34); Mean Corpuscular Volume 92.7 fl (80-100); Nucleated Red Blood Cells Absolute Auto 0.000 K/mm3 (0.0-0.012); Nucleated Red Blood Cells Perc 0.0 % (0.0-0.2); Platelet Count Result 174 k/mm3 (150-375); Red Blood Count 4.91 M/mm3 (4.2-5.4); White Blood Count 6.4 K/mm3 (4.5-10.0)
[2025-04-11 08:03] LABS: Add Urine Microscopic? YES; Appearance Urine Turbid (Clear); Glucose Urine UA Negative (Negative); Leukocyte Esterase Ur Negative LEU/UL (Negative); Need Manual Microscopic Reviewed; Nitrate Urine Negative (Negative); Specific Grav Ur 1.012 (1.001-1.035)
[2025-04-11] MEDS: KETOROLAC 30 MG/ML VIAL (*BKC) IV PUSH (09:35)
[2025-04-11] MEDS: cefTRIAXone 1 GM in SODIUM CHLORIDE 0.9% IV 50 ML 100 ML IVPB (09:35)
[2025-04-11 10:39] VITALS: BP 123/66; PULSE 88; RESP 19; O2SAT 100
== END 2025-04-11 10:42 | disposition home or self-care (01) ==
PROVIDERS: Emergency Provider Emergency Medicine; PCP Family Medicine
DX: N39.0 Urinary tract infection, site not specified (principal); R11.15 Cyclical vomiting syndrome unrelated to migraine; R10.9 Unspecified abdominal pain; I25.2 Old myocardial infarction; Z85.828 Personal history of other malignant neoplasm of skin; I10 Essential (primary) hypertension; D64.9 Anemia, unspecified
CPT/HCPCS: 36415; 74177; 80053; 81001; 83605; 83690; 85025; 87086; 96361; 96365; 96375; 99284; J0696; J1885; J2405; J2765; J7120; Q9967